=== PATIENT | female | born 1980 | race Caucasian/White ===

== ENCOUNTER 2022-11-29 15:21 | Outpatient (OUT) | payer OTHER, SELFPAY ==
[2022-11-29 15:47] LABS: Basophils Absolute Auto 0.1 10^3/uL (0.0-0.1); Basophils Percent Auto 0.7 % (0.2-2.0); Eosinophils Absolute Auto 0.2 10^3/uL (0.0-0.7); Eosinophils Percent Auto 2.8 % (0.9-7.0); Hematocrit 43.6 % (36.0-48.0); Hemoglobin 14.3 g/dL (12.0-16.0); Immature Granulocytes Abs Auto 0.04 10^3/uL (0.00-0.03); Immature Granulocytes Pct Auto 0.5 % (0.0-0.5); Lymphocytes Absolute Auto 1.7 10^3/uL (1.2-3.8); Lymphocytes Percent Auto 22.7 % (20.5-60.0); Mean Corpuscular HGB Conc 32.8 g/dL (29.9-35.2); Mean Corpuscular Hemoglobin 28.3 pg (26.7-34.0); Mean Corpuscular Volume 86.2 fL (81.0-99.0); Monocytes Absolute Auto 0.4 10^3/uL (0.3-0.8); Monocytes Percent Auto 5.7 % (1.7-12.0); Neutrophils Absolute Auto 5.1 10^3/uL (1.4-6.5); Neutrophils Percent Auto 67.6 % (43.0-75.0); Platelet Count 308 10^3/uL (150-450); Red Blood Count 5.06 10^6/uL (4.20-5.40); Red Cell Distribution Width 12.5 % (11.0-15.0); White Blood Count 7.6 10^3/uL (4.0-11.0)
[2022-11-29 16:36] LABS: Alanine Aminotransferase 13 U/L (14-59); Albumin Globulin Ratio 0.9; Albumin Level 3.4 g/dL (3.4-5.0); Alkaline Phosphatase 92 U/L (46-116); Anion Gap 12.5; Aspartate Amino Transferase 10 U/L (15-37); BUN Creatinine Ratio 11.2; Bilirubin Total 0.4 mg/dL (0.2-1.0); Calcium 9.2 mg/dL (8.5-10.1); Carbon Dioxide 25.6 mmol/L (21.0-32.0); Chloride 104 mmol/L (98-107); Chol HDL Ratio 5.2; Cholesterol 194 mg/dL (<=200); Estimated GFR (African America >60 (>=60); Estimated GFR (Non-African Ame >60 (>=60); Glucose 88 mg/dL (74-106); HDL Cholesterol 37 mg/dL (40-60); Potassium 4.1 mmol/L (3.5-5.1); Sodium 138 mmol/L (136-145); Thyroid Stimulating Hormone 2.999 uIU/mL (0.358-3.740); Total Protein 7.4 g/dL (6.4-8.2); Triglycerides 153 mg/dL (<=150); VLDL CHOLESTEROL 30.6 mg/dL
[2022-11-29 16:41] LABS: Free T4 1.13 ng/dL (0.76-1.46)
== END 2022-11-29 15:22 ==
LOC: LAB 15:24
PROVIDERS: PCP Nurse Practitioner; Visit Provider Nurse Practitioner
DX: E03.9 Hypothyroidism, unspecified (principal); F31.9 Bipolar disorder, unspecified
CPT/HCPCS: 36415; 80053; 80061; 84439; 84443; 85025

== ENCOUNTER 2023-01-01 12:44 | Outpatient (OUT) | payer OTHER, SELFPAY ==
--- NOTE | 2023-01-01 12:57 | MM_ITS ---
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 MG MAMM SCREEN 3D OLI CAD, 12/18/2021. INDICATIONS: Screening Calculator Name NCI Breast Cancer Risk Assessment Tool 5 Year Breast Cancer Risk 0.90% Lifetime Breast Cancer Risk 10.70% Personal Breast Cancer No Personal Ovarian Cancer No Treatments None Family Cancers None LOCATION: [facility] BREAST COMPOSITION: Scattered areas fibroglandular density. FINDINGS: DIAGNOSTIC CATEGORY 1--NEGATIVE. RIGHT BREAST: No significant suspicious finding. No significant change has occurred. LEFT BREAST: No significant suspicious finding. No significant change has occurred. RECOMMENDATIONS: ROUTINE MAMMOGRAM AND CLINICAL EVALUATION IN 12 MONTHS. PLEASE NOTE: A NORMAL MAMMOGRAM DOES NOT EXCLUDE THE POSSIBILITY OF BREAST CANCER. A CLINICALLY SUSPICIOUS PALPABLE LUMP SHOULD BE BIOPSIED. Dictated by: Ramakrishna Pascal M.D. on 01/02/2023 at 12:11 Approved by: Ramakrishna Pascal M.D. on 01/02/2023 at 12:54
== END 2023-01-01 12:45 | disposition home or self-care (01) ==
LOC: MAMMO 12:44
PROVIDERS: PCP Nurse Practitioner; Visit Provider Nurse Practitioner
DX: Z12.31 Encounter for screening mammogram for malignant neoplasm of breast (principal)
CPT/HCPCS: 77063; 77067

== ENCOUNTER 2024-01-03 10:00 | Outpatient (OUT) | payer OTHER, SELFPAY ==
--- NOTE | 2024-01-03 10:05 | MM_ITS ---
Patient Name: PATITO CABRALES MR#: [id number] : 1980 Exam Date: 01/03/2024 Ordering Doctor: KENYETTA Renee CNP RADIOLOGY REPORT PROCEDURE: MM TOMOSYNTHESIS SCREENING BI COMPARISON: MG MAMM RT DIAG FU, 12/27/2021. MM TOMOSYNTHESIS SCREENING BI, 01/01/2023. INDICATIONS: Screening Calculator Name NCI Breast Cancer Risk Assessment Tool 5 Year Breast Cancer Risk 0.90% Lifetime Breast Cancer Risk 10.60% Personal Breast Cancer No Personal Ovarian Cancer No Treatments None Family Cancers None LOCATION: [facility] BREAST COMPOSITION: There are scattered areas of fibroglandular density. FINDINGS: DIAGNOSTIC CATEGORY 1--NEGATIVE. NO CHANGE FROM COMPARISON ASSESSMENT. Scattered benign-appearing lymph nodes are present. RIGHT BREAST: No significant suspicious finding. LEFT BREAST: No significant suspicious finding. RECOMMENDATIONS: ROUTINE MAMMOGRAM AND CLINICAL EVALUATION IN 12 MONTHS. PLEASE NOTE: A NORMAL MAMMOGRAM DOES NOT EXCLUDE THE POSSIBILITY OF BREAST CANCER. A CLINICALLY SUSPICIOUS PALPABLE LUMP SHOULD BE BIOPSIED. Dictated by: Vini Soto MD on 01/03/2024 at 12:56 Approved by: Vini Soto MD on 01/03/2024 at 12:57
== END 2024-01-03 10:01 | disposition home or self-care (01) ==
LOC: MAMMO 10:00
PROVIDERS: PCP Nurse Practitioner; Visit Provider Nurse Practitioner
DX: Z12.31 Encounter for screening mammogram for malignant neoplasm of breast (principal)
CPT/HCPCS: 77063; 77067

== ENCOUNTER 2024-01-29 13:23 | Outpatient (OUT) | payer OTHER, SELFPAY ==
[2024-01-29 13:47] LABS: Basophils Absolute Auto 0.1 10^3/uL (0.0-0.1); Basophils Percent Auto 0.7 % (0.2-2.0); Eosinophils Absolute Auto 0.3 10^3/uL (0.0-0.7); Eosinophils Percent Auto 3.4 % (0.9-7.0); Hematocrit 41.2 % (36.0-48.0); Hemoglobin 13.6 g/dL (12.0-16.0); Immature Granulocytes Abs Auto 0.02 10^3/uL (0.00-0.03); Immature Granulocytes Pct Auto 0.2 % (0.0-0.5); Lymphocytes Absolute Auto 2.2 10^3/uL (1.2-3.8); Lymphocytes Percent Auto 25.6 % (20.5-60.0); Mean Corpuscular Hemoglobin 28.5 pg (26.7-34.0); Mean Corpuscular Volume 86.4 fL (81.0-99.0); Mean Platelet Volume 9.4 fL (9.5-13.5); Monocytes Absolute Auto 0.5 10^3/uL (0.3-0.8); Monocytes Percent Auto 6.3 % (1.7-12.0); Neutrophils Absolute Auto 5.4 10^3/uL (1.4-6.5); Neutrophils Percent Auto 63.8 % (43.0-75.0); Platelet Count 241 10^3/uL (150-450); Red Blood Count 4.77 10^6/uL (4.20-5.40); Red Cell Distribution Width 12.2 % (11.0-15.0); White Blood Count 8.5 10^3/uL (4.0-11.0)
[2024-01-29 14:03] LABS: Alanine Aminotransferase 16 U/L (14-59); Albumin Globulin Ratio 0.9; Albumin Level 3.2 g/dL (3.4-5.0); Alkaline Phosphatase 85 U/L (46-116); Anion Gap 14.7; Aspartate Amino Transferase 14 U/L (15-37); BUN Creatinine Ratio 12.4; Bilirubin Total 0.5 mg/dL (0.2-1.0); Calcium 8.8 mg/dL (8.5-10.1); Carbon Dioxide 22.6 mmol/L (21.0-32.0); Chloride 106 mmol/L (98-107); Chol HDL Ratio 4.7; Cholesterol 174 mg/dL (<=200); Estimated GFR (African America >60 (>=60); Estimated GFR (Non-African Ame >60 (>=60); Globulin 3.5 g/dL; Glucose 99 mg/dL (74-106); HDL Cholesterol 37 mg/dL (40-60); Potassium 4.3 mmol/L (3.5-5.1); Sodium 139 mmol/L (136-145); Thyroid Stimulating Hormone 1.641 uIU/mL (0.358-3.740); Total Protein 6.7 g/dL (6.4-8.2); Triglycerides 89 mg/dL (<=150); VLDL CHOLESTEROL 17.8 mg/dL
[2024-01-29 14:26] LABS: Free T4 1.16 ng/dL (0.76-1.46)
[2024-01-29 17:05] LABS: Bilirubin Urine NEGATIVE (NEGATIVE); Blood Urine TRACE-I (NEGATIVE); Clarity Urine CLEAR (CLEAR); Color Urine YELLOW (YELLOW); Glucose Urine UA NEGATIVE (NEGATIVE); Ketones Urine NEGATIVE (NEGATIVE); Leukocyte Esterase Urine NEGATIVE (NEGATIVE); Nitrite Urine NEGATIVE (NEGATIVE); Protein Urine TRACE mg/dL (NEG/TRACE); Specific Gravity Urine >=1.030 (1.005-1.025); Urobilinogen Urine 0.2 EU/dL (0.2-1.0); pH Urine 5.5 (5.0-9.0)
[2024-01-29 17:06] LABS: Urine Microscopic Indicated YES
[2024-01-29 17:20] LABS: Bacteria Urine SMALL #/HPF (NONE SEEN); Cast Seen? NONE SEEN #/LPF (NONE SEEN); Crystals Seen? None Seen #/HPF (None Seen); Mucus Urine SMALL (NONE SEEN); Squamous Epithelial Cell Urine MODERATE #/LPF (NONE/RARE); WBC Urine 0-2 #/HPF (NONE SEEN)
== END 2024-01-29 13:24 | disposition home or self-care (01) ==
LOC: LAB 13:25
PROVIDERS: PCP Nurse Practitioner; Visit Provider Nurse Practitioner
DX: E03.9 Hypothyroidism, unspecified (principal); E66.01 Morbid (severe) obesity due to excess calories; F31.9 Bipolar disorder, unspecified
CPT/HCPCS: 36415; 80053; 80061; 81001; 84439; 84443; 85025

== ENCOUNTER 2024-03-29 15:10 | Emergency (ER) | payer OTHER, SELFPAY ==
--- OUTSIDE RECORDS SUMMARY | 2024-03-29 15:18 | XMS_ITS | CCD ---
Author Organization [facility] Care Team Providers Care Gravel Screener Name Role Phone Unavailable Primary Care Provider UnavailISIS Hagan Referring Unavailable AICHHOLZ, CARMELA J. Referring Unavailable AICHHOLZ, CARMELA J. Primary Care Unavailable Aichholz, Carmela J. Primary Care Provider Lesly Snider Unavailable AICHHOLZ, LEASE PURCHASE DRIVER CARMELA Admitting Unavailable AICHHOLZ, LEASE PURCHASE DRIVER CARMELA Attending Unavailable AICHHOLZ, LEASE PURCHASE DRIVER CARMELA Primary Care Unavailable AICHHOLZ, LEASE PURCHASE DRIVER CARMELA Consulting Unavailable AICHHOLZ, LEASE PURCHASE DRIVER CARMELA Admitting Unavailable AICHHOLZ, LEASE PURCHASE DRIVER CARMELA Attending Unavailable AICHHOLZ, LEASE PURCHASE DRIVER CARMELA Primary Care Unavailable AICHHOLZ, LEASE PURCHASE DRIVER CARMELA Consulting Unavailable AICHHOLZ, LEASE PURCHASE DRIVER CARMELA Admitting Unavailable AICHHOLZ, LEASE PURCHASE DRIVER CARMELA Attending Unavailable AICHHOLZ, LEASE PURCHASE DRIVER CARMELA Primary Care Unavailable WAYNE, DR WILLY Gonsales Consulting Unavailable AICHHOLZ, LEASE PURCHASE DRIVER CARMELA Consulting Unavailable AICHHOLZ, LEASE PURCHASE DRIVER CARMELA Admitting Unavailable AICHHOLZ, LEASE PURCHASE DRIVER CARMELA Attending Unavailable AICHHOLZ, LEASE PURCHASE DRIVER CARMELA Primary Care Unavailable AICHHOLZ, LEASE PURCHASE DRIVER CARMELA Consulting Unavailable AICHHOLZ, LEASE PURCHASE DRIVER CARMELA Admitting Unavailable AICHHOLZ, LEASE PURCHASE DRIVER CARMELA Attending Unavailable AICHHOLZ, LEASE PURCHASE DRIVER CARMELA Primary Care Unavailable AICHHOLZ, LEASE PURCHASE DRIVER CARMELA Consulting Unavailable JADEN, DR RAMAKRISHNA [place] Consulting Unavailable KARASIK ., DR JOHNSON Admitting Unavailabl e KARASIK ., DR JOHNSON Attending Unavailabl e AICHHOLZ, LEASE PURCHASE DRIVER CARMELA Primary Care Unavailable KARASIK ., DR JOHNSON Consulting Unavailabl e REQUEST, DR HINDS LISTED Admitting Unavaila ble REQUEST, DR HINDS LISTED Attending Unavaila ble AICHHOLZ, LEASE PURCHASE DRIVER CARMELA Primary Care Unavailable REQUEST, NONE LISTED Consulting Unavaila ble KARASIK ., DR JOHNSON Admitting Jonn GASCA ., DR JOHNSON Attending Jonn e VÍCTOR, LEASE PURCHASE DRIVER CARMELA Primary Care Unavailable CAMPOS ., DR JOHNSON Consulting ALEJANDRO Linares Consulting Unavailable Chadwick Sauceda MD Primary Care Provider Víctor FIELD REP, Carmela Unavailable VÍCTOR, CARMELA Attending Unavailable VÍCTOR, CARMELA Attending Unavailable VÍCTOR, CARMELA Attending Unavailable VÍCTOR, CARMELA Attending Unavailable Allergies Allergy Classification Reported Allergen(s) Allergy Type Date of Onset Reaction(s) Facility (1 source) Latex Propensity to adverse reactions severe rash Bin1 ATE Other (2 sources) Sertraline Drug Allergy 05-03-20 23 Hallucinations Bin1 ATE Other (1 source) Acetaminophen / HYDROcodone Drug Allergy 12-28-19 13 [facility] (1 source) Latex Drug allergy (disorder) 12-28-19 13 [facility] (1 source) Sertraline Drug Allergy 12-28-19 13 [facility] (1 source) Acetaminophen / HYDROcodone Drug Allergy 05-03-20 Hallucinations [facility] (1 source) Latex Propensity to adverse reactions 05-03-20 Rash [facility] Medications Current Medications Medication Drug Class(es) Dates Sig (Normalized) Sig (Original) ARIPiprazole 20 mg oral tablet (2 sources) Atypical Antipsychotic take 1 tablet by mouth in the morning ARIPiprazole (Abilify) 20 MG tablet Take 20 mg by mouth in the morning. 0 Active Abilify Active cetirizine hydrochloride 10 mg oral tablet (1 source) Histamine-1 Receptor Antagonist take 5 mg by mouth in the morning cetirizine (ZyrTEC) 10 MG tablet Take 5 mg by mouth in the morning. 0 Active fluconazole 150 mg oral tablet (1 source) Azole Antifungal Start: 3 fluconazole (Diflucan) 150 MG tablet Indications: Vaginal yeast infection Take 150mg dose, may repeat in 3 days 2 tablet 1 06/13/2023 Active fluvoxaMINE maleate 100 mg oral tablet (2 sources) Serotonin Reuptake Inhibitor Start: 3 End: take 1.5 tablets by mouth in the morning fluvoxaMINE (Luvox) 100 MG tablet Indications: Obsessive-compulsiv e disorder, unspecified (CMS/HCC) , RINA (generalized anxiety disorder) (CMS/HCC) Take 1.5 tablets (150 mg) by mouth in the morning and 1.5 tablets (150 mg) before bedtime. 270 tablet 1 05/31/2023 08/29/2023 Active fluvoxaMINE Male ate Active hydrocortisone 10 mg/ml / neomycin 3.5 mg/ml / polymyxin b [id number] unt/ml otic suspension (1 source) Aminoglycoside Antibacterial, Polymyxin-class Antibacterial, Corticosteroid Start: 09-22-2021 Bltobkmb-Rnbgrhney-XX 3.5-16844-2 3 drops left ear Three times a day for 7 days Sep, Active levothyroxine sodium 0.137 mg oral tablet (3 sources) l-Thyroxine Start: 07-30-2023 End: 10-28-2023 take 1 tablet by mouth in the morning levothyroxine (Synthroid, Levoxyl) 137 MCG tablet Indications: Hypothyroidism, unspecified (CMS/HCC) Take 137 mcg by mouth in the morning. 90 tablet 1 07/30/2023 10/28/2023 Active take 1 capsule by mouth before m ealtime levothyroxine (Tirosint) 137 MCG capsule Take 137 mcg by mouth in the morning. Take before meals. 0 Active Levothyroxine So dium Active Melatonin (1 source) Melatonin Active temazepam 15 mg oral capsule (1 source) Benzodiazepine temazepam (Sung ril) 15 MG capsule Take 15 mg by mouth as needed at bedtime for sleep. 0 Active triamcinolone acetonide 1 mg /ml topical cream (1 source) Corticosteroid triamcinolone (K enalog) 0.1 % cream Apply 1 application topically in the morning and 1 application before bedtime. 0 Active Problems Active Problems Problem Classification Problem Date Documented Da te Episodic/Chronic Allergic reactions (1 source) Atopic dermatitis; Translations: [Intrinsic (allergic) eczema] Onset: 05-23-2023 05-23-2023 Chronic Anxiety disorders (2 sources) Generalized anxiety disorder; Translations: [Generalized anxiety disorder] Onset: 05-23-2023 05-23-2023 Chronic Mood disorders (1 source) Bipolar disorder, unspecified; Translations: [BIPOLAR DISORDER UNSPECIFIED] Onset: 03-08-2022 Chronic Thyroid disorders (8 sources) Hypothyroidism, unspecified; Translations: [Hypothyroidism] Onset: 03-08-2022 Chronic Unclassified (1 source) CONTACT W/AND (SUSP) EXPOS COVID-19; Translations: [CONTACT W/AND (SUSP) EXPOS COVID-19] Onset: 03-04-2022 Past or Other Problems Problem Classification Problem Date Documented Da te Episodic/Chronic Inflammatory diseases of female pelvic organs (5 sources) Abscess of vulva; Translations: [ABSCESS OF VULVA] Onset: 03-02-2022 Episodic Other ear and sense organ disorders (1 source) Unspecified acute noninfective otitis externa, left ear Onset: 09-22-2021 Resolved: 09-22-2021 Episodic Other screening for suspected conditions (not mental disorders or infectious disease) (12 sources) Other abnormal and inconclusive findings on diagnostic imaging of breast; Translations: [Encounter for screening mammogram for malignant neoplasm of breast] Onset: 12-14-2021 Episodic Residual codes; unclassified (1 source) Procedure and treatment not carried out for other reasons; Translations: [PROC AND TX NOT CARRIED OUT OTH REASONS] Onset: 03-08-2022 Episodic Results Test Name Value Interpretation Reference Range Facility FREE T4on 08-06-2022 Free T4 [Mass/Vol] 1.35 ng/dL Normal 0.76-1.46 [facility] Comment on above: Performed By: #### F T4 #### [facility] [address], [place] [address] Dr. Steve Oliveros TSHon 08-06-2022 TSH 0.319 uIU/mL Critically low 0.358-3.740 [facility] Comment on above: Performed By: #### T SH ####[facility] [id number] [place], [place] [address]ZoDr. Steev Oliveros FREE T4on 05-29-2022 Free T4 [Mass/Vol] 1.15 ng/dL Normal 0.76-1.46 [facility] Comment on above: Performed By: #### F T4 #### [facility] [address] [place], [place] [address] Dr. Steve Oliveros TSHon 05-29-2022 TSH 5.149 uIU/mL Critically high 0.358-3.740 [facility] Comment on above: Performed By: #### T SH #### [facility] [address] [place], [place] [address] Dr. Steve Oliveros URon 03-02-2022 , QUAL Negative Normal NEGATIVE [facility] Comment on above: Performed By: #### P REGU #### [facility] [address] [place], [place] [address] Dr. Steve Oliveros Covid-19 PCR (CVDTB)on SARS-CoV-2 (COVID-19) RNA ZI+probe Ql (Unsp spec) Not detected Normal NOT DETECTED [facility] Comment on above: Result Comment: When diagnostic testing is negative, the possibility of a false negative should be considered in the context of a patient's recent exposures and the presence of clinical signs and symptoms consistent with SARS-CoV-2. This test is not yet approved or cleared by the [place] FDA. When there are no FDA-approved or cleared tests available, and other criteria are met, FDA can make tests available under an emergency access mechanism called an Emergency Use Authorization (EUA). The EUA for this test is supported by the Registered Nurse Obstetrics of Health and Human Service's declaration that circumstances exist to justify the emergency use of in vitro diagnostics for the detection and/or diagnosis of the virus that causes COVID-19. This EUA will remain in effect for the duration of the COVID-19 declaration justifying emergency of IVDs, unless it is terminated or revoked by the FDA (after which the test may no longer be used). Performed By: #### C VDTBH ####[facility] [id number] [place], [place] [address]FeDr. Steve Oliveros MG MAMM RT DIAG FUon 022 MG MAMM RT DIAG FU Patient: HENRIETTA GARCIA Exam Date: 12/27/2021 : 1980 Gender:F Ordering : KENYETTA RENEE LEASE PURCHASE DRIVER Admission #: [id number] Family : Order #: [id number] CLICK HERE TO VIEW EXAM RADIOLOGY REPORT PROCEDURE: MAMMOGRAM RIGHT DIAGNOSTIC DIGITAL FOLLOW UP COMPARISON: MAMM SCREEN 3D OLI CAD, 12/18/2021. INDICATIONS: Abnormal findings on diagnostic imaging of breast Calculator Name NCI Breast Cancer Risk Assessment Tool 5 Year Breast Cancer Risk 0.80% Lifetime Breast Cancer Risk 10.80% Personal Breast Cancer No Personal Ovarian Cancer No Treatments None Family Cancers None LOCATION: [facility] BREAST COMPOSITION: Scattered areas fibroglandular density. FINDINGS: DIAGNOSTIC CATEGORY 2--BENIGN FINDING: RIGHT BREAST: Spot magnification views demonstrate dispersion of previously seen asymmetry within the posterior upper-outer quadrant. No suspicious underlying findings. Annual screening mammography is recommended. RECOMMENDATIONS: ROUTINE MAMMOGRAM AND CLINICAL EVALUATION IN 12 MONTHS. PLEASE NOTE: A NORMAL MAMMOGRAM DOES NOT EXCLUDE THE POSSIBILITY OF BREAST CANCER. A CLINICALLY SUSPICIOUS PALPABLE LUMP SHOULD BE BIOPSIED. Dictated by: Ramakrishna Pascal M.D. on 12/27/2021 at 10:27 Approved by: Ramakrishna Pascal M.D. on 12/27/2021 at 10:30 Normal [facility] MAMM SCREEN 3D OLI CADon 12-18-2021 MAMM SCREEN 3D OLI CAD Patient: HENRIETTA GARCIA Exam Date: 12/18/2021 : 1980 Gender:F Ordering : KENYETTA RENEE [facility] Admission #: [id number] Family : Order #: [id number] CLICK HERE TO VIEW EXAM RADIOLOGY REPORT PROCEDURE: MAMMOGRAM SCREENING 3D BILATERAL CAD COMPARISON: None. INDICATIONS: Screening Calculator Name NCI Breast Cancer Risk Assessment Tool 5 Year Breast Cancer Risk 0.80% Lifetime Breast Cancer Risk 10.80% Personal Breast Cancer No Personal Ovarian Cancer No Treatments None Family Cancers None LOCATION: [facility] BREAST COMPOSITION: Scattered areas fibroglandular density. FINDINGS: DIAGNOSTIC CATEGORY 0--INCOMPLETE: NEED ADDITIONAL IMAGING EVALUATION. Scattered benign-appearing lymph nodes are present. RIGHT BREAST: A subtle area of architectural distortion is identified in the upper-outer quadrant of the right breast at the chest wall. Spot imaging and ultrasound follow-up recommended. LEFT BREAST: No significant suspicious finding. Well-circumscribed reniform nodule 3 o'clock position of the left mid breast, a normal intramammary lymph node is favored RECOMMENDATIONS: ADDITIONAL MAMMOGRAPHIC VIEWS REQUIRED: RIGHT BREAST - spot compression ULTRASOUND: RIGHT BREAST PLEASE NOTE: A NORMAL MAMMOGRAM DOES NOT EXCLUDE THE POSSIBILITY OF BREAST CANCER. A CLINICALLY SUSPICIOUS PALPABLE LUMP SHOULD BE BIOPSIED. Dictated by: Willy Soto MD on 12/18/2021 at 12:47 Approved by: Willy Soto MD on 12/18/2021 at 12:55 Normal [facility] PAP ACOG PANEL 2: 30 to 65on 12-17-2021 . . Normal [facility] Comment on above: Result Comment: Perf ormed at: WB Performed By: #### [id number] #### [facility] [address] [place] [address] [address] Steve Oliveros Age Gdln ACOG Testing 30-65 Normal [facility] Comment on above: Performed By: #### [id number] #### [facility] [address] [place] [address] Dr. Steve Oliveros DIAGNOSIS: Comment Normal [facility] Comment on above: Result Comment: NEGA TIVE FOR INTRAEPITHELIAL LESION OR MALIGNANCY. Performed at: WB Performed By: #### [id number] #### [facility] [address] [place] [address] [address] Steve Oliveros HPV Aptima Negative Normal Negative [facility] Comment on above: Result Comment: This nucleic acid amplification test detects fourteen high-risk HPV types (16,18,31,33,35,39,45,51,52,56,58,59,66,68) without differentiation. Performed at: =G Performed By: #### [id number] #### [facility] [address] [place] [address] Dr. Steve Oliveros Methodology: Comment Normal [facility] Comment on above: Result Comment: This liquid based ThinPrep(R) pap test was screened with the use of an image guided system. Performed at: WB Performed By: #### [id number] #### [facility] [address] [place] [address] Dr. Steve Oliveros Note: Comment Normal [facility] Comment on above: Result Comment: The Pap smear is a screening test designed to aid in the detection of premalignant and malignant conditions of the uterine cervix. It is not a diagnostic procedure and should not be used as the sole means of detecting cervical cancer. Both false-positive and false-negative reports do occur. . Performed at: WB Performed By: #### [id number] #### [facility] [address] [place] [address] Dr. Steve Oliveros Performed by: Comment Normal [facility] Comment on above: Result Comment: Slime Lockwood, Intelligence Intern (ASCP) Performed at: WB Performed By: #### [id number] #### [facility] [address] [place] [address] Dr. Steve Oliveros Specimen adequacy: Comment Normal [facility] Comment on above: Result Comment: Sati sfactory for evaluation. Endocervical and/or squamous metaplastic cells (endocervical component) are present. Performed at: WB Performed By: #### [id number] #### [facility] [address] [place] [address] Dr. Steve Oliveros CBC AUTO DIFFon 11-28-2021 BASO # 0.0 103/ul Normal 0.0-0.1 [facility] Comment on above: Performed By: #### D ATCBC #### [facility] [address] [place] [address] Dr. Steve Oliveros Basophils/100 WBC (Bld) 0.6 % Normal 0.2-2.0 [facility] Comment on above: Performed By: #### D ATCBC #### [facility] [address] [place] [address] Dr. Steve Oliveros EO # 0.1 103/ul Normal 0.0-0.7 [facility] Comment on above: Performed By: #### D ATCBC #### [facility] [address] [place] [address] Dr. Steve Oliveros Eosinophils/100 WBC (Bld) 1.5 % Normal 0.9-7.0 [facility] Comment on above: Performed By: #### D ATCBC #### [facility] [address] [place] [address] Dr. Steve Oliveros Erythrocyte distribution width (RBC) [Ratio] 12.3 % Normal 11.0-15.0 [facility] Comment on above: Performed By: #### D ATCBC #### [facility] [address] [address] [address] Steve Oliveros Hematocrit (Bld) [Volume fraction] 42.5 % Normal 36.0-48.0 [facility] Comment on above: Performed By: #### D ATCBC #### [facility] [address] [place] [address] Dr. Steve Oliveros Hemoglobin (Bld) [Mass/Vol] 13.7 g/dL Normal 12.0-16.0 [facility] Comment on above: Performed By: #### D ATCBC #### [facility] [address] [place] [address] Dr. Steve Oliveros IG # 0.02 10e3/ul Normal 0.00-0.03 [facility] Comment on above: Performed By: #### D ATCBC #### [facility] [address] [place] [address] Dr. Steve Oliveros IG % 0.3 % Normal 0.0-0.5 [facility] Comment on above: Performed By: #### D ATCBC #### [facility] [address] [place] [address] Dr. Steve Oliveros LYMPH # 1.8 103/ul Normal 1.2-3.8 [facility] Comment on above: Performed By: #### D ATCBC #### [facility] [address] [place] [address] Dr. Steve Oliveros Lymphocytes/100 WBC (Bld) 24.4 % Normal 20.5-60.0 [facility] Comment on above: Performed By: #### D ATCBC #### [facility] [address] [place] [address] Dr. Steve Oliveros MCH (RBC) [Entitic mass] 28.1 pg Normal 26.7-34.0 [facility] Comment on above: Performed By: #### D ATCBC #### [facility] [address] [place] [address] Dr. Steve Oliveros MCHC (RBC) [Mass/Vol] 32.2 g/dL Normal 29.9-35.2 [facility] Comment on above: Performed By: #### D ATCBC #### [facility] [address] [address] [address] Steve Oliveros MCV (RBC) [Entitic vol] 87.3 fL Normal 81.0-99.0 [facility] Comment on above: Performed By: #### D ATCBC #### [facility] [address] [place] [address] [address] Steve Oliveros MONO # 0.5 103/ul Normal 0.3-0.8 [facility] Comment on above: Performed By: #### D ATCBC #### [facility] [address] [place] [address] Dr. Steve Oliveros Monocytes/100 WBC (Bld) 6.6 % Normal 1.7-12.0 [facility] Comment on above: Performed By: #### D ATCBC #### [facility] [address] [place] [address] Dr. Steve Oliveros NEUT # 4.8 103/ul Normal 1.4-6.5 [facility] Comment on above: Performed By: #### D ATCBC #### [facility] [address] [place] [address] Dr. Steve Oliveros Neutrophils/100 WBC (Bld) 66.6 % Normal 43.0-75.0 [facility] Comment on above: Performed By: #### D ATCBC #### [facility] [address] [place] [address] Dr. Steve Oliveros Platelet mean volume (Bld) [Entitic vol] 9.1 fL Critically low 9.5-13.5 [facility] Comment on above: Performed By: #### D ATCBC #### [facility] [address] [place] [address] Dr. Steve Oliveros PLT 301 103/ul Normal 150-450 [facility] Comment on above: Performed By: #### D ATCBC #### [facility] [address] [place] [address] Dr. Steve Oliveros RBC 4.87 106/ul Normal 4.20-5.40 [facility] Comment on above: Performed By: #### D ATCBC #### [facility] [address] [address] [address] Steve Oliveros WBC 7.2 103/ul Normal 4.0-11.0 [facility] Comment on above: Performed By: #### D ATCBC #### [facility] [address] [place] [address] Dr. Steve Oliveros ALTAGRACIA - TSHon 11-28-2021 TSH 7.045 uIU/mL Critically high 0.358-3.740 [facility] Comment on above: Performed By: #### D ATTSH DATBMP #### [facility] [address] [place] [address] Dr. Steve Oliveros TSH RANGE SEE BELOW Normal [facility] Comment on above: Result Comment: <0.3 4 UIU/ml HYPERTHYROID 0.34-5.60 UIU/ml EUTHYROID >5.60 UIU/ml HYPOTHYROID Performed By: #### D ATTJOSE DATBMP #### [facility] [address] [place] [address] Dr. Steve Oliveros ALTAGRACIA- BMP WITH LIPIDon 2021 Anion gap [Moles/Vol] 12.1 mmol/L Normal [facility] Comment on above: Performed By: #### D ATTSH, DATBMP #### [facility] [address] [place] [address] Dr. Steve Oliveros Calcium [Mass/Vol] 9.0 mg/dL Normal 8.5-10.1 [facility] Comment on above: Performed By: #### D ATTSH, DATBMP #### [facility] [address] [place] [address] Dr. Steve Oliveros Chloride [Moles/Vol] 105 mmol/L Normal 98-107 [facility] Comment on above: Performed By: #### D ATTSH, DATBMP #### [facility] [address] [place] [address] Dr. Steve Oliveros Cholesterol [Mass/Vol] 191 mg/dL Normal <=200 [facility] Comment on above: Performed By: #### D ATTSH, DATBMP #### [facility] [address] [address] [address] Steve Oliveros Cholesterol in HDL [Mass/Vol] 33 mg/dL Critically low 40-60 [facility] Comment on above: Performed By: #### D ATTSH, DATBMP #### [facility] [address] [address] [address] Steve Oliveros Cholesterol in LDL [Mass/Vol] 117.0 mg/dL Normal [facility] Comment on above: Performed By: #### D ATTSH, DATBMP #### [facility] [address] [address] [address] Steve Oliveros CO2 [Moles/Vol] 25.1 mmol/L Normal 21.0-32.0 [facility] Comment on above: Performed By: #### D ATTSH, DATBMP #### [facility] [address] [address] [address] Steve Oliveros Creatinine [Mass/Vol] 0.93 mg/dL Normal 0.55-1.02 [facility] Comment on above: Performed By: #### D ATTSH, DATBMP #### [facility] [address] [address] [address] Steve Oliveros EGFR-AF PUERTO RICAN >60 Normal >=60 [facility] Comment on above: Performed By: #### D ATTSH, DATBMP #### [facility] [address] [address] [address] Steve Oliveros EGFR-NON AF PUERTO RICAN >60 Normal >=60 [facility] Comment on above: Performed By: #### D ATTSH, DATBMP #### [facility] [address] [address] [address] Steve Oliveros Glucose [Mass/Vol] 91 mg/dL Normal 74-106 [facility] Comment on above: Performed By: #### D ATTSH, DATBMP #### [facility] [address] [address] [address] Steve Oliveros HDL NORMAL > or = 60 mg/dl - LO W CARDIOVASCULAR RISK <40 mg/dl - HIGH CARDIOVASCULAR RISK Normal [facility] Comment on above: Performed By: #### D ATTSH, DATBMP #### [facility] [address] [address] [address] Steve Oliveros LDL CALC NORMAL SEE BELOW Normal [facility] Comment on above: Result Comment: <100 mg/dl OPTIMAL 100 - 129 mg/dl NEAR OR ABOVE OPTIMAL 130 - 159 mg/dl BORDERLINE HIGH 160 - 189 mg/dl HIGH >190 mg/dl VERY HIGH Performed By: #### D ATTSH, DATBMP #### [facility] [address] [address] [address] Steve Oliveros Potassium [Moles/Vol] 4.2 mmol/L Normal 3.5-5.1 [facility] Comment on above: Performed By: #### D ATTSH, DATBMP #### [facility] [address] [address] [address] Steve Oliveros Sodium [Moles/Vol] 138 mmol/L Normal 136-145 [facility] Comment on above: Performed By: #### D ATTSH, DATBMP #### [facility] [address] [address] [address] Steve Oliveros Triglyceride [Mass/Vol] 205 mg/dL Critically high <=150 [facility] Comment on above: Performed By: #### D ATTSH, DATBMP #### [facility] [address] [address] [address] Steve Oliveros Urea nitrogen [Mass/Vol] 10.0 mg/dL Normal 7.0-18.0 [facility] Comment on above: Performed By: #### D ATTSH, DATBMP #### [facility] [address] [address] [address] Steve Oliveros Urea nitrogen/Creatinine [Mass ratio] 10.8 mg/mg Normal [facility] Comment on above: Performed By: #### D ATTSH, DATBMP #### [facility] [address] [address] [address] Steve Oliveros VLDL CALC 41.0 mg/dL Normal [facility] Comment on above: Performed By: #### D ATTSH, DATBMP #### [facility] [address] [address] [address] Steve Oliveros CBC Auto Differentialon 07-25 Basophils (Bld) [#/Vol] 0.07 10*3/uL [employer] Phone: Basophils/100 WBC (Bld) 1 % 0 - 2 % [employer] Phone: Differential Type NOT REPORTED [employer] Phone: Eosinophils (Bld) [#/Vol] 0.22 10*3/uL [employer] Phone: Eosinophils/100 WBC (Bld) 2 % 1 - 4 % [employer] Phone: Erythrocyte distribution width (RBC) [Ratio] 13.0 % 11.8 - 14.4 % [employer] Phone: Hematocrit (Bld) [Volume fraction] 43.3 % 36.3 - 47.1 % [employer] Phone: Hemoglobin (Bld) [Mass/Vol] 13.6 g/dL 11.9 - 15.1 g/dL [employer] Phone: Immature granulocytes (Bld) [#/Vol] 0.05 10*3/uL [employer] Phone: Immature granulocytes (Bld) [#/Vol] 0 % 0 [employer] Phone: Interpretation and review of laboratory results Abnormal [employer] Phone: Lymphocytes (Bld) [#/Vol] 2.56 10*3/uL [employer] Phone: Lymphocytes/100 WBC (Bld) 23 % Low 24 - 43 % [employer] Phone: MCH (RBC) [Entitic mass] 27.0 pg 25.2 - 33.5 pg [employer] Phone: MCHC (RBC) [Mass/Vol] 31.4 g/dL 28.4 - 34.8 g/dL [employer] Phone: MCV (RBC) [Entitic vol] 86.1 fL 82.6 - 102.9 fL [employer] Phone: Monocytes (Bld) [#/Vol] 1.01 10*3/uL [employer] Phone: Monocytes/100 WBC (Bld) 9 % 3 - 12 % [employer] Work Phone: Platelet mean volume (Bld) [Entitic vol] 9.5 fL 8.1 - 13.5 fL [employer] Phone: Platelets (Bld) [#/Vol] NOT REPORTED [employer] Phone: Platelets (Bld) [#/Vol] 300 10*3/uL [employer] Phone: RBC (Bld) [#/Vol] 5.03 10*6/uL 3.95 - 5.1 1 m/uL [employer] Work Phone: RBC morphology finding Nom (Bld) NOT REPORTED [employer] Work Phone: Segmented neutrophils/100 WBC (Bld) 65 % 36 - 65 % [employer] Phone: Segs Absolute 7.39 [employer] Work Phone: WBC (Bld) [#/Vol] 11.3 10*3/uL [employer] Work Phone: WBC (Bld) [#/Vol] 0.0 10*3/uL 0.0 per 10 0 WBC [employer] Work Phone: WBC Morphology NOT REPORTED [facility] Work Phone: CBC with Diffon 08-12-2020 Abs. Basophil 0.07 k/uL Normal 0.00-0.20 [facility] Comment on above: Performed By: #### C DP, CP, TSH #### [facility] [address] [place], [place] [id number] Mental Health Coordinator: Willy Jasmine MD #### FT4, LIPR #### [address] [id number] Mental Health Coordinator: Tr Bullard MD Abs.Imm.Granulocyte 0.05 k/uL Normal 0.00-0.[address] [facility] Comment on above: Performed By: #### C DP, CP, TSH #### [facility] [address] [place] [address] [place] [place] [id number] Mental Health Coordinator: Willy Jasmine MD #### FT4, LIPR #### [address] [address] Mental Health Coordinator: Tr Bullard MD Abs.Neutrophil (Seg) 7.39 k/uL Normal 1.50-8.10 [facility] Comment on above: Performed By: #### C DP, CP, TSH #### [facility] [address] [place] [address] [address] [phone] Mental Health Coordinator: Willy Jasmine MD #### FT4, LIPR #### [place] [address] Mental Health Coordinator: Tr Bullard MD Basophils/100 WBC (Bld) 1 % Normal 0-[address] [facility] Comment on above: Performed By: #### C DP, CP, TSH #### [facility] [address] [place] [address] [address] [phone] Mental Health Coordinator: Willy Jasmine MD #### FT4, LIPR #### [place] [address] Mental Health Coordinator: Tr Bullard MD Eosinophils (Bld) [#/Vol] 0.22 10*3/uL Normal 0.00-0.[address] [facility] Comment on above: Performed By: #### C DP, CP, TSH #### [facility] [address], [place] [id number] Mental Health Coordinator: Willy Jasmine MD #### FT4, LIPR #### [address] [place], [place] [id number] Mental Health Coordinator: Tr Bullard MD Eosinophils/100 WBC (Bld) 2 % Normal 1-[address] [facility] Comment on above: Performed By: #### C DP, CP, TSH #### [facility] [address] [place], [place] [phone] Mental Health Coordinator: Willy Jasmine MD #### FT4, LIPR #### [address] [place], [place] [id number] Mental Health Coordinator: Tr Bullard MD Erythrocyte distribution width (RBC) [Ratio] 13.0 % Normal 11.8-14.[address] [facility] Comment on above: Performed By: #### C DP, CP, TSH #### [facility] [address], [place] [id number] Mental Health Coordinator: Willy Jasmine MD #### FT4, LIPR #### [address] [id number] Mental Health Coordinator: Tr Bullard MD Hematocrit (Bld) [Volume fraction] 43.3 % Normal 36.3-47.[address] [facility] Comment on above: Performed By: #### C DP, CP, TSH #### [facility] [address] [place], [place] 1590683 Mental Health Coordinator: Willy Jasmine MD #### FT4, LIPR #### [address] [id number] Mental Health Coordinator: Tr Bullard MD Hemoglobin (Bld) [Mass/Vol] 13.6 g/dL Normal 11.9-15.[address] [facility] Comment on above: Performed By: #### C DP, CP, TSH #### [facility] [address] [place], [place] [phone] Mental Health Coordinator: Willy Jasmine MD #### FT4, LIPR #### [address] [id number] Mental Health Coordinator: Tr Bullard MD Immature granulocytes (Bld) [#/Vol] 0 % Normal [address] [facility] Comment on above: Performed By: #### C DP, CP, TSH #### [facility] [address] [place], [place] [id number] Mental Health Coordinator: Willy Jasmine MD #### FT4, LIPR #### [address] [phone] Mental Health Coordinator: Tr Bullard MD Lymphocytes (Bld) [#/Vol] 2.56 10*3/uL Normal 1.10-3.[address] [facility] Comment on above: Performed By: #### C DP, CP, TSH #### [facility] [address] [place], [place] 9305083 Mental Health Coordinator: Willy Jasmine MD #### FT4, LIPR #### [address] [id number] Mental Health Coordinator: Tr Bullard MD Lymphocytes/100 WBC (Bld) 23 % Low 24-[address] [facility] Comment on above: Performed By: #### C DP, CP, TSH #### [facility] [address] [place], [place] 7395583 Mental Health Coordinator: Willy Jasmine MD #### FT4, LIPR #### [address] [id number] Mental Health Coordinator: Tr Bullard MD MCH (RBC) [Entitic mass] 27.0 pg Normal 25.2-33.[address] [facility] Comment on above: Performed By: #### C DP, CP, TSH #### [address] [place] [address] Mental Health Coordinator: Willy Jasmine MD #### FT4, LIPR #### [address] [id number] Mental Health Coordinator: Tr Bullard MD MCHC (RBC) [Mass/Vol] 31.4 g/dL Normal 28.4-34.[address] [facility] Comment on above: Performed By: #### C DP, CP, TSH #### [address] [place] [phone] Mental Health Coordinator: Willy Jasmine MD #### FT4, LIPR #### [address] [phone] Mental Health Coordinator: Tr Bullard MD MCV (RBC) [Entitic vol] 86.1 fL Normal 82.6-102.[address] [facility] Comment on above: Performed By: #### C DP, CP, TSH #### [address] [place] [phone] Mental Health Coordinator: Willy Jasmine MD #### FT4, LIPR #### [address] [id number] Mental Health Coordinator: Tr Bullard MD Monocytes (Bld) [#/Vol] 1.01 10*3/uL Normal 0.10-1.[address] [facility] Comment on above: Performed By: #### C DP, CP, TSH #### [facility] [address] [place] [address] [place] [address] Mental Health Coordinator: Willy Jasmine MD #### FT4, LIPR #### [address] [id number] Mental Health Coordinator: Tr Bullard MD Monocytes/100 WBC (Bld) 9 % Normal 3-[address] [facility] Comment on above: Performed By: #### C DP, CP, TSH #### [facility] [address] [place], [place] 1936083 Mental Health Coordinator: Willy Jasmine MD #### FT4, LIPR #### [address] 1678208 Mental Health Coordinator: Tr Bullard MD Neutrophil (Seg) 65 % Normal 36-65 [facility] Comment on above: Performed By: #### C DP, CP, TSH #### [facility] [address] [place], [place] 0551583 Mental Health Coordinator: Willy Jasmine MD #### FT4, LIPR #### [address] [id number] Mental Health Coordinator: Tr Bullard MD NRBC Automated 0.0 per 100 WBC Normal 0.[address] [facility] Comment on above: Performed By: #### C DP, CP, TSH #### [facility] [address] [place], [place] 0663283 Mental Health Coordinator: Willy Jasmine MD #### FT4, LIPR #### [address] [address] Mental Health Coordinator: Tr Bullard MD Platelet mean volume (Bld) [Entitic vol] 9.5 fL Normal 8.1-13.[address] [facility] Comment on above: Performed By: #### C DP, CP, TSH #### [facility] [address] [place], [place] 7183483 Mental Health Coordinator: Willy Jasmine MD #### FT4, LIPR #### [address] [address] Mental Health Coordinator: Tr Bullard MD Platelets (Bld) [#/Vol] 300 10*3/uL Normal 138-[address] [facility] Comment on above: Performed By: #### C DP, CP, TSH #### [facility] [address] [place], [place] [phone] Mental Health Coordinator: Wilyl Jasmine MD #### FT4, LIPR #### [address] [address] Mental Health Coordinator: Tr Bullard MD RBC (Bld) [#/Vol] 5.03 10*6/uL Normal 3.95-5.[address] [facility] Comment on above: Performed By: #### C DP, CP, TSH #### [address] [place] [phone] Mental Health Coordinator: Willy Jasmine MD #### FT4, LIPR #### [address] [address] Mental Health Coordinator: Tr Bullard MD WBC (Bld) [#/Vol] 11.3 10*3/uL Normal 3.5-11.[address] [facility] Comment on above: Performed By: #### C DP, CP, TSH #### [address] [place], [place] [phone] Mental Health Coordinator: Willy Jasmine MD #### FT4, LIPR #### [address] [address] Mental Health Coordinator: Tr Bullard MD Auto Diff Performed NOT REPORTED Normal [facility] Comment on above: Performed By: #### C DP, CP, TSH #### [address] [place], [place] 9225983 Mental Health Coordinator: Willy Jasmine MD #### FT4, LIPR #### [address] [address] Mental Health Coordinator: Tr Bullard MD Platelets (Bld) [#/Vol] NOT REPORTED Normal [facility] Comment on above: Performed By: #### C DP, CP, TSH #### [address] [place], [place] 5816983 Mental Health Coordinator: Willy Jasmine MD #### FT4, LIPR #### [address] [place], [place] [id number] Mental Health Coordinator: Tr Bullard MD RBC morphology finding Nom (Bld) NOT REPORTED Normal [facility] Comment on above: Performed By: #### C DP, CP, TSH #### [address] [place], [place] 2367983 Mental Health Coordinator: Willy Jasmine MD #### FT4, LIPR #### [address] [place], [place] [phone] Mental Health Coordinator: Tr Bullard MD WBC Morphology NOT REPORTED Normal [facility] Comment on above: Performed By: #### C VILMA, CP, TSH #### [address] [place], [place] 9064383 Mental Health Coordinator: Willy Jasmine MD #### FT4, LIPR #### [address] [address] Mental Health Coordinator: Tr Bullard MD Comp Metabolic Profon 2020 (cont.) Normal [facility] Comment on above: Result Comment: Aver age GFR for 40-49 years old: 99 mL/min/1.73sq m Chronic Kidney Disease: <60 mL/min/1.73sq m Kidney failure: <15 mL/min/1.73sq m eGFR calculated using average adult body mass. Additional eGFR calculator available at: http://www.[employer].com.com/multiple_crcl_2012.htm Performed By: #### C DP, CP, TSH #### [address] [place], [place] 1780683 Mental Health Coordinator: Willy Jasmine MD #### FT4, LIPR #### [address] [place] [address] Mental Health Coordinator: Tr Bullard MD Albumin [Mass/Vol] 3.8 g/dL Normal 3.5-5.[address] [facility] Comment on above: Performed By: #### C DP, CP, TSH #### [facility] [address] [place] [address] [place], [place] 8671483 Mental Health Coordinator: Willy Jasmine MD #### FT4, LIPR #### [address] [id number] Mental Health Coordinator: Tr Bullard MD Albumin/Globulin [Mass ratio] 1.0 {ratio} Normal 1.0-2.[address] [facility] Comment on above: Performed By: #### C DP, CP, TSH #### [address] [place] [phone] Mental Health Coordinator: Willy Jasmine MD #### FT4, LIPR #### [address] [address] Mental Health Coordinator: Tr Bullard MD Alkaline Phos 128 U/L High 35-104 [facility] Comment on above: Performed By: #### C DP, CP, TSH #### [address] [place], [place] 9172083 Mental Health Coordinator: Willy Jasmine MD #### FT4, LIPR #### [address] [address] Mental Health Coordinator: Tr Bullard MD ALT [Catalytic activity/Vol] 19 U/L Normal 5-[address] [facility] Comment on above: Performed By: #### C DP, CP, TSH #### [facility] [address] [place] [address] [place], [place] 6877583 Mental Health Coordinator: Willy Jasmine MD #### FT4, LIPR #### [address] [id number] Mental Health Coordinator: Tr Bullard MD Anion gap [Moles/Vol] 9 mmol/L Normal 9-[address] [facility] Comment on above: Performed By: #### C DP, CP, TSH #### [facility] [address] [place], [place] 0207483 Mental Health Coordinator: Willy Jasmine MD #### FT4, LIPR #### [address] [address] Mental Health Coordinator: Tr Bullard MD AST [Catalytic activity/Vol] 16 U/L Normal <[address] [facility] Comment on above: Performed By: #### C DP, CP, TSH #### [facility] [address] [place], [place] 3214683 Mental Health Coordinator: Willy Jasmine MD #### FT4, LIPR #### [address] [address] Mental Health Coordinator: Tr Bullard MD Bilirubin Ql (U) 0.37 mg/dL Normal 0.3-1.2 [facility] Comment on above: Performed By: #### C DP, CP, TSH #### [facility] [address] [place] [address] [place], [place] 4787283 Mental Health Coordinator: Willy Jasmine MD #### FT4, LIPR #### [address] [address] Mental Health Coordinator: Tr Bullard MD BUN/CRE Ratio 15 Normal 9-20 [facility] Comment on above: Performed By: #### C DP, CP, TSH #### [facility] [address] [place] [address] [place], [place] 4676783 Mental Health Coordinator: Willy Jasmine MD #### FT4, LIPR #### [address] [address] Mental Health Coordinator: Tr Bullard MD Calcium [Mass/Vol] 9.5 mg/dL Normal 8.6-10.[address] [facility] Comment on above: Performed By: #### C RYAN ESPARZA, TSH #### [facility] [address] [place] [address] Mental Health Coordinator: Willy Jasmine MD #### FT4, LIPR #### [address] [id number] Mental Health Coordinator: Tr Bullard MD Chloride [Moles/Vol] 102 mmol/L Normal 98-107 [facility] Comment on above: Performed By: #### C RYAN ESPARZA, TSH #### [facility] [address] [place] [address] Mental Health Coordinator: Willy Jasmine MD #### FT4, LIPR #### [address] [id number] Mental Health Coordinator: Tr Bullard MD CO2 [Moles/Vol] 21 mmol/L Normal 20-31 [facility] Comment on above: Performed By: #### C RYAN ESPARZA, TSH #### [facility] [address] [place] [address] [place] [address] Mental Health Coordinator: Willy Jasmine MD #### FT4, LIPR #### [address] [id number] Mental Health Coordinator: Tr Bullard MD Creatinine [Mass/Vol] 0.73 mg/dL Normal 0.50-0.[address] [facility] Comment on above: Performed By: #### C VILMA, RYAN, TSH #### [facility] [address] [place] [address] Mental Health Coordinator: Willy Jasmine MD #### FT4, LIPR #### [address] [address] Mental Health Coordinator: Tr Bullard MD GFR, Amer >60 Normal >60 [facility] Comment on above: Performed By: #### C DP, CP, TSH #### [facility] [address] [place] [address] Mental Health Coordinator: Willy Jasmine MD #### FT4, LIPR #### [address] [id number] Mental Health Coordinator: Tr Bullard MD GFR,non Amer >60 Normal >60 [facility] Comment on above: Performed By: #### C DP, CP, TSH #### [facility] [address] [place], [place] 9274983 Mental Health Coordinator: Willy Jasmine MD #### FT4, LIPR #### [address] [id number] Mental Health Coordinator: Tr Bullard MD Glucose [Mass/Vol] 99 mg/dL Normal 70-[address] [facility] Comment on above: Performed By: #### C DP, CP, TSH #### [facility] [address] [place], [place] 2931783 Mental Health Coordinator: Willy Jasmine MD #### FT4, LIPR #### [address] [phone] Mental Health Coordinator: Tr Bullard MD Potassium [Moles/Vol] 3.9 mmol/L Normal 3.7-5.[address] [facility] Comment on above: Performed By: #### C DP, CP, TSH #### [facility] [address] [place], [place] 7527383 Mental Health Coordinator: Willy Jasmine MD #### FT4, LIPR #### [address] [address] Mental Health Coordinator: Tr Bullard MD Protein [Mass/Vol] 7.6 g/dL Normal 6.4-8.[address] [facility] Comment on above: Performed By: #### C DP, CP, TSH #### [facility] [address] [place] [address] [place]. [place], [place] 2757783 Mental Health Coordinator: Willy Jasmine MD #### FT4, LIPR #### [address] [id number] Mental Health Coordinator: Tr Bullard MD Sodium [Moles/Vol] 132 mmol/L Low 135-[address] [facility] Comment on above: Performed By: #### C DP, CP, TSH #### [address] [place], [place] 8372283 Mental Health Coordinator: Willy Jasmine MD #### FT4, LIPR #### [address] [id number] Mental Health Coordinator: Tr Bullard MD Staging: Normal [facility] Comment on above: Result Comment: Stag e 1: Some kidney damage normal GFR Stage 2: Mild kidney damage GFR 60-89 Stage 3: Moderate kidney damage GFR 30-59 Stage 4: Severe kidney damage GFR 15-29 Stage 5: Severe kidney damage GFR <15 ESRD - chronic treatment by dialysis or transplant Performed By: #### C DP, CP, TSH #### [address] [place], [place] [id number] Mental Health Coordinator: Willy Jasmine MD #### FT4, LIPR #### [address] [id number] Mental Health Coordinator: Tr Bullard MD Urea nitrogen [Mass/Vol] 11 mg/dL Normal 6-[address] [facility] Comment on above: Performed By: #### C DP, CP, TSH #### [address] [place], [place] 7569583 Mental Health Coordinator: Willy Jasmine MD #### FT4, LIPR #### [address] [id number] Mental Health Coordinator: Tr Bullard MD Comprehensive Metabolic Pane rosalinda 08-12-2020 Albumin [Mass/Vol] 3.8 g/dL 3.5 - 5.2 g/dL [facility] [employer] Work Phone: Albumin/Globulin [Mass ratio] 1.0 {ratio} [facility] Phone: ALP [Catalytic activity/Vol] 128 U/L High 35 - 104 U/L [facility] Work Phone: ALT [Catalytic activity/Vol] 19 U/L 5 - 33 U/L [facility] Phone: Anion gap [Moles/Vol] 9 mmol/L 9 - 17 mmol/L [facility] Phone: AST [Catalytic activity/Vol] 16 U/L <32 [facility] Phone: Bilirubin Ql (U) 0.37 mg/dL 0.3 - 1.2 mg/dL [facility] Phone: Bun/Cre Ratio 15 [facility] [employer] Work Phone: Calcium [Mass/Vol] 9.5 mg/dL 8.6 - 10. 4 mg/dL [facility] Phone: Chloride [Moles/Vol] 102 mmol/L 98 - 10 7 mmol/L [facility] Phone: CO2 [Moles/Vol] 21 mmol/L 20 - 31 mmol/L [facility] Phone: Creatinine [Mass/Vol] 0.73 mg/dL 0.5 - 0.9 mg/dL [facility] Phone: GFR >60 >60 mL/min [employer] Phone: GFR Non- >60 >60 mL/min [facility] Phone: Glucose [Mass/Vol] 99 mg/dL 70 - 99 mg/dL [facility] [employer] Phone: Potassium [Moles/Vol] 3.9 mmol/L 3.7 - 5.3 mmol/L [facility] [employer] Phone: Protein [Mass/Vol] 7.6 g/dL 6.4 - 8.3 g/dL [facility] [employer] Phone: Sodium [Moles/Vol] 132 mmol/L Low 135 - 144 mmol/L [facility] Phone: Urea nitrogen [Mass/Vol] 11 mg/dL 6 - 20 mg/dL [facility] Phone: Lipid Panelon 08-12-2020 Cholesterol [Mass/Vol] 167 mg/dL <200 [facility] Phone: Comment on above: Cholesterol Guidelines: <200 Desirable 200-240 Borderline >240 Undesirable Cholesterol in HDL [Mass/Vol] 34 mg/dL Low >40 [facility] Phone: Comment on above: HDL Guidelines: <40 Undesirable 40-59 Borderline >59 Desirable Cholesterol in LDL [Mass/Vol] 103 mg/dL 0 - 130 mg/dL [facility] Phone: Comment on above: LDL Guidelines: <100 Desirable 100-129 Near to/above Desirable 130-159 Borderline >159 Undesirable Direct (measured) LDL and calculated LDL are not interchangeable tests. Cholesterol in VLDL [Mass/Vol] NOT REPORTED 1 - 30 mg/dL [facility] Phone: Cholesterol.total/Ch olesterol in HDL [Mass ratio] 4.9 {ratio} <5 [facility] Phone: Interpretation and review of laboratory results Abnormal [facility] Phone: Triglyceride [Mass/Vol] 148 mg/dL <150 [facility] Phone: Comment on above: Triglyceride Guidelines: <150 Desirable 150-199 Borderline 200-499 High >499 Very high Based on AHA Guidelines for fasting triglyceride, March 2012. Lipid Profileon 08-12-2020 Cholesterol [Mass/Vol] 167 mg/dL Normal <[address] [facility] Comment on above: Result Comment: Cholesterol Guidelines: <200 Desirable 200-240 Borderline >240 Undesirable Performed By: #### C RYAN ESPARZA, TSH #### [address] [place], [place] [phone] Mental Health Coordinator: Willy Jasmine MD #### FT4, LIPR #### [address] [address] Mental Health Coordinator: Tr Bullard MD Cholesterol in HDL [Mass/Vol] 34 mg/dL Low >[address] [facility] Comment on above: Result Comment: HDL Guidelines: <40 Undesirable 40-59 Borderline >59 Desirable Performed By: #### C RYAN ESPARZA, TSH #### [address] [place] [address] Mental Health Coordinator: Willy Jasmine MD #### FT4, LIPR #### [address] [address] Mental Health Coordinator: Tr Bullard MD Cholesterol in LDL [Mass/Vol] 103 mg/dL Normal 0-[address] [facility] Comment on above: Result Comment: LDL Guidelines: <100 Desirable 100-129 Near to/above Desirable 130-159 Borderline >159 Undesirable Direct (measured) LDL and calculated LDL are not interchangeable tests. Performed By: #### C RYAN ESPARZA, TSH #### [facility] [address] [place] [address] [place] [place], [place] 8870983 Mental Health Coordinator: Willy Jasmine MD #### FT4, LIPR #### [address] [place] [address] Mental Health Coordinator: Tr Bullard MD Cholesterol.total/Ch olesterol in HDL [Mass ratio] 4.9 {ratio} Normal <[address] [facility] Comment on above: Performed By: #### C RYAN ESPARZA, TSH #### [address] [place] [address] Mental Health Coordinator: Willy Jasmine MD #### FT4, LIPR #### [facility] [address] [place], [place] [id number] Mental Health Coordinator: Tr Bullard MD Triglyceride [Mass/Vol] 148 mg/dL Normal <[address] [facility] Comment on above: Result Comment: Triglyceride Guidelines: <150 Desirable 150-199 Borderline 200-499 High >499 Very high Based on AHA Guidelines for fasting triglyceride, March 2012. Performed By: #### C DP, CP, TSH #### [facility] [address] [place], [place] [id number] Mental Health Coordinator: Willy Jasmine MD #### FT4, LIPR #### [facility] [address], [place] [id number] Mental Health Coordinator: Tr Bullard MD Cholesterol in VLDL [Mass/Vol] NOT REPORTED Normal 07-[address] [facility] Comment on above: Performed By: #### C DP, CP, TSH #### [facility] [address] [place], [place] [id number] Mental Health Coordinator: Willy Jasmine MD #### FT4, LIPR #### [facility] [address], [place] [id number] Mental Health Coordinator: Tr Bullard MD Metabolic Panelon 08-12-2020 GFR/1.73 sq M predicted among non-blacks MDRD (S/P/Bld) [Vol rate/Area] [facility] Work Phone: Comment on above: Average GFR for 40-4 9 years old: 99 mL/min/1.73sq m Chronic Kidney Disease: <60 mL/min/1.73sq m Kidney failure: <15 mL/min/1.73sq m eGFR calculated using average adult body mass. Additional eGFR calculator available at: http://[email or web address].FastHealth/multiple_crcl_2012.htm Stage 1: Some kidney damage normal GFR Stage 2: Mild kidney damage GFR 60-89 Stage 3: Moderate kidney damage GFR 30-59 Stage 4: Severe kidney damage GFR 15-29 Stage 5: Severe kidney damage GFR <15 ESRD - chronic treatment by dialysis or transplant Otheron 08-12-2020 Interpretation and review of laboratory results Abnormal [facility] Phone: T4, Freeon 08-12-2020 Thyroxine, Free 1.69 ng/dL 0.93 - 1.7 ng/dL [facility] Phone: TSH without Reflexon 021 TSH Qn 0.28 m[IU]/L Low [facility] Phone: Thyroid Stim. Horm.on 2020 TSH Qn 0.28 m[IU]/L Low 0.30-5.[address] [facility] Comment on above: Performed By: #### C DP, CP, TSH #### [facility] [address] [place] [address] [place] [id number] Mental Health Coordinator: Willy Jasmine MD #### FT4, LIPR #### [address] [address] Mental Health Coordinator: Tr Bullard MD Thyroxine, Freeon 08-12-2020 Thyroxine, Free 1.69 ng/dL Normal 0.93-1.70 [facility] Comment on above: Performed By: #### C DP, CP, TSH #### [address] [place] [address] Mental Health Coordinator: Willy Jasmine MD #### FT4, LIPR #### [place] [id number] Mental Health Coordinator: Tr Bullard MD Measles (Rubeola) Imon 04-27 Measles (Rubeola) Im 3.86 Normal >1.09 [facility] Comment on above: Result Comment: Interpretation: IMMUNE Reference Range: <0.91 Not Immune 0.91-1.09 Equivocal >1.09 Immune Performed By: #### M EI, JEREMY, AHBS, VZI, DAVIDSON #### [place] [address] [place], [place] [id number] Mental Health Coordinator: Tr Bullard MD Mumps,Immun,Abon 04-27-2020 Mumps,Immun,Ab 4.77 Normal >1.09 [facility] Comment on above: Result Comment: Interpretation: IMMUNE Reference Range: <0.91 Not Immune 0.91-1.09 Equivocal >1.09 Immune Performed By: #### M YINKA JEREMY, AHBS, VZI, DAVIDSON #### [facility] [employer] [address] [place] [phone] Mental Health Coordinator: Tr Bullard MD VZ Immunityon 04-27-2020 VZ Immunity 2.29 Normal >1.[address] [facility] Comment on above: Result Comment: Interpretation: IMMUNE Reference Range: <0.91 Not Immune 0.91-1.09 Equivocal >1.09 Immune Performed By: #### M TORREY HONEYCUTTI, XOCHITLBS, VZI, DAVIDSON #### [facility] [employer] [address] [place] [phone] Mental Health Coordinator: Tr Bullard MD Hep B Surf Abon 04-26-2020 Hep B Surf Ab 485.80 mIU/mL High <10 [facility] Comment on above: Result Comment: REFERENCE RANGE: <10.0 NON-REACTIVE/NOT IMMUNE >=10.0 REACTIVE/IMMUNE The presence of Anti-HBs usually indicates recovery from acute or chronic HBV infection or acquired immunity from HBV vaccination. Positive results (quantitative levels of equal to or greater than 10.0 mIU/mL) indicate an adequate immunity from previous infection, vaccination or immune globulin adminstration. Anti-HBc would help define positivity due to Hepatitis B infection. Performed By: #### M JEREMY HONEYCUTT, AHBS, VZI, DAVIDSON #### [facility] [employer] [address] [place] [id number] Mental Health Coordinator: Tr Bullard MD Rubella Ab, IgGon 04-26-2020 Rubella Ab, IgG 7.8 IU/mL Normal [facility] Comment on above: Result Comment: REFERENCE RANGE: <5.0 NON-REACTIVE (non-immune) 5.0 TO 9.9 EQUIVOCAL >=10.0 REACTIVE (immune) Performed By: #### M EI, JEREMY, AHBS, VZI, DAVIDSON #### [facility] [address] [place] [address] Mental Health Coordinator: Tr Bullard MD Hepatitis B Surface Antibody on 04-25-2020 HBV surface Ab (S) [Titer] 485.8 High <10 mIU/mL [place], [place] Comment on above: REFERENCE RANGE: <10.0 NON-REACTIVE/NOT IMMUNE >=10.0 REACTIVE/IMMUNE The presence of Anti-HBs usually indicates recovery from acute or chronic HBV infection or acquired immunity from HBV vaccination. Positive results (quantitative levels of equal to or greater than 10.0 mIU/mL) indicate an adequate immunity from previous infection, vaccination or immune globulin adminstration. Anti-HBc would help define positivity due to Hepatitis B infection. Interpretation and review of laboratory results Abnormal [place], [place] Rubella antibody, IgGon Rubella virus IgG Ql (S) 7.8 IU/mL [place] Comment on above: REFERENCE RANGE: <5.0 NON-REACTIVE (non-immune) 5.0 TO 9.9 EQUIVOCAL >=10.0 REACTIVE (immune) PROGRESSon 11-24-2019 PROGRESS HNO ID: [id number] Author: Chinedu Martinez Service: ? Author Type: Psychologist Type: Progress Notes Filed: 11/24/2019 9:14 AM Note Text: GENERAL PSYCHOLOGY Michelle/722 ECO virtual visit. This document has been created with the use of voice recognition technology. It may contain inaccuracies, misspellings, syntax errors, or word sense that escaped review due to the author's visual impairment. Due to the [facility] [place] [facility] and the need for ongoing mental health services, the following visit was completed virtually to reduce the risk of COVID-19 exposure. Consent related to virtual visits was provided verbally after information was sent electronically or read to patient. Telepsycholgy risk/benefit: The concerns and coditions of this patient are judged to be in a range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
[2024-03-29 15:20] VITALS: BP 150/84; PULSE 60; TEMP 36.8; O2SAT 98; BMI 41.6
--- NOTE | 2024-03-29 15:30 | PC.NURSE ---
various areas to body with flee bites, no drainage, no blisters and scabs to most fo them.
--- NOTE | 2024-03-29 15:50 | ED_ITS ---
<Statement entered by Speedy Mason MD - 03/30/24 09:25> This documentation has been reviewed and approved. Chart was sent to my inbox for administrative and group management purposes. I was the attending physicians working during the patients hospital course. The patient was seen and managed independently by the MLP. I did not personally see or evaluate this patient, nor was I involved in the patient medical decision making process or plans of care. Pt was dispositioned by the MLP with complete independence. I was available for consultation should the MLP request during this patients ED stay HPI - Skin/Abscess/Foreign Bdy General Chief complaint: Skin/Abscess/Foreign Body Stated complaint: Bite Time Seen by Provider: 03/29/24 15:22 Source: patient Mode of arrival: walk-in History of Present Illness HPI narrative: Patient is a 43-year-old female presents to the ER with concerns of multiple bites. Patient has an indoor cat, states this has been going on for some time where she has been itching multiple bites to her bilateral forearms and ankles. Patient believes she has seen fleas jumping on her carpet. She is taking Vistaril for itching. I am initially prescribed it for anxiety. Patient reports having allergic reaction to insect bites in the past. She has various stages of insect bites to both arms and legs with excoriation. Pt denies any fever or chills, denies antibiotic allergies. complaint: Reports insect bite/sting; Denies rash or laceration Onset (ago): day(s) Tetanus up to date: yes Severity: moderate (itching) Quality: Denies burning Pain Consistency: Denies constant Relieving factors: Reports none Exacerbating factors: Denies none Context: Denies none Treatments prior to arrival: Reports other (vistaril) Related Data Previous Rx's ?Medication ?Instructions ?Recorded doxycycline hyclate 100 mg capsule 100 mg PO BID 10 days #20 caps 03/29/24 hydroxyzine pamoate 25 mg capsule 25 mg PO TID PRN itching 7 days 03/29/24 (Vistaril) #21 caps Allergies Allergy/AdvReac Type Severity Reaction Status Date / Time acetaminophen [From [place]] Allergy Severe Hallucinati Verified 03/29/24 15:24 ng hydrocodone [From [place]] Allergy Severe Hallucinati Verified 03/29/24 15:24 ng latex Allergy Severe Rash Verified 03/29/24 15:24 sertraline [From [place]] Allergy Severe Hallucinati Verified 03/29/24 15:24 ng Review of Systems ROS Constitutional Denies: fever or chills Ears, nose, mouth, and throat Denies: throat pain or neck pain Cardiovascular Denies: chest pain or palpitations Respiratory Denies: shortness of breath or cough Gastrointestinal Denies: abdominal pain, nausea or vomiting Musculoskeletal Denies: back pain or neck pain Integumentary/Breast Reports: itching and sores Neurological Denies: headache Psychiatric Reports: anxiety Endocrine Denies: excessive urination Hematologic/Lymphatic Denies: easy bruising Allergic/Immunologic Denies: hives, tongue swelling, facial swelling, wheezing or itchy eyes Exam Narrative Exam Narrative: Vital Signs and nurse's notes are reviewed. The patient is not hypoxic. General: Alert, no acute distress, patient resting comfortably Skin: warm, intact, no pallor noted. The patient has evidence multiple circular scabs noted to the bilateral lower legs circumferential and bilateral forearms. There is no burrowing in the intertriginous space of the fingers or toes. There are areas of new bites that appear more like a erythematous wheal or hive and some locations do have 3 bites in a row concerning for possible bedbug presentation. No involvement of the trunk or back. No involvement of the face. The patient has no evidence of petechiae, purpura, or vesicles. The patient has no sloughing of the skin. The patient has no involvement of the palms, soles, or oral mucosa. The patient has no significant want associated. Head: Normocephalic, atraumatic Eye: Normal conjunctiva, No exudates Ears, nose, throat: moist mucous membranes, there is no involvement of the oral mucosa, there is no lip or tongue swelling. The patient has airway patent. The patient has no tonsillar hypertrophy or swelling to the posterior oropharynx. No evidence of Vesicles. Neck: The patient has no masses, warmth, or erythema. The patient has no meningeal signs. The patient has no nuchal rigidity noted. Cardiovascular: Regular Rate and Rhythm Respiratory: No acute distress, tachypnea, mild rhonchi and wheezing noted in bilateral lung perea. No round noted. No retractions or stridor. Abdomen: Normal bowel sounds, soft, nontender, no rebound, guarding or rigidity noted. No masses detected. Musculoskeletal: Normal range of motion, no calf tenderness noted bilaterally, no edema noted. Negative Lino's sign bilaterally. no evidence of cyanosis or mottling noted to the extremities. Pulses intact. Neurological: alert and oriented x4, normal speech, normal motor, normal sensory Psychiatric: Cooperative. Constitutional Vital Signs, click to edit/add: Last Vital Signs Temp 98.2 F 03/29/24 15:20 Pulse 60 03/29/24 15:20 Resp 16 03/29/24 15:20 BP 150/84 H 03/29/24 15:20 Pulse Ox 98 03/29/24 15:20 O2 Del Method Room Air 03/29/24 15:20 Course Vital Signs Vital signs: Vital Signs Temperature 98.2 F 03/29/24 15:20 Pulse Rate 60 03/29/24 15:20 Respiratory Rate 16 03/29/24 15:20 Blood Pressure 150/84 H 03/29/24 15:20 Pulse Oximetry 98 03/29/24 15:20 Oxygen Delivery Method Room Air 03/29/24 15:20 Temperature 98.2 F 03/29/24 15:20 Pulse Rate 60 03/29/24 15:20 Respiratory Rate 16 03/29/24 15:20 Blood Pressure 150/84 H 03/29/24 15:20 Pulse Oximetry 98 03/29/24 15:20 Oxygen Delivery Method Room Air 03/29/24 15:20 MDM - Skin/Abscess/Foreign Bdy MDM Narrative Medical decision making narrative: Reviewed symptoms with patient, notable pruritus with excoriation at previous source, discussed antibiotic treatment given various stages of excoriation localized erythema. No evidence of diffuse cellulitis. We discussed symptom control with cool compresses but most importantly contacting firmware engineer to eliminate the symptoms. She was given refill of her Vistaril for itching as she was taking it for anxiety previously. We will hold on oral steroids given presentation and the need to eradicate the causative agent at home contributing to her symptoms. Patient verbalized understanding and had no further concerns o r questions. She denies any outdoor explorations and we will hold on permethrin treatment at this time as patient feels this is fleas as she has seen them in her home. The patient is to followup with primary care physician in next 2-3 days or to return to the emergency department should any of the signs or symptoms worsen or new symptoms develop. Patient had questions answered. The patient agrees with the following Diagnosis and Treatment plan and the patient will be discharged home. Discharge Plan Discharge Chief Complaint: Skin/Abscess/Foreign Body Clinical Impression: Insect bite, Flea bite of multiple sites Patient Disposition: Home, Self-Care Time of Disposition Decision: 15:50 Condition: Good Prescriptions / Home Meds: New doxycycline hyclate 100 mg capsule 100 mg PO BID 10 Days Qty: 20 0RF hydroxyzine pamoate [Vistaril] 25 mg capsule 25 mg PO TID PRN (Reason: itching) 7 Days Qty: 21 0RF Print Language: Slovenian Instructions: Insect Bite or Sting (ED), Cold Compress or Soak (ED) Additional Instructions: Recommend contacting Track Repairer for Home inspection Referrals: Carmela Renee NP [Primary Care Provider] - 1 week
[2024-03-29] MEDS: DOXYCYCLINE MONOHYDRATE 100 MG CAPSULE PO (15:59)
== END 2024-03-29 16:02 | disposition home or self-care (01) ==
PROVIDERS: Emergency Provider Emergency Medicine; PCP Nurse Practitioner
DX: S50.862A Insect bite (nonvenomous) of left forearm, initial encounter (principal); S50.861A Insect bite (nonvenomous) of right forearm, initial encounter; S80.862A Insect bite (nonvenomous), left lower leg, initial encounter; S80.861A Insect bite (nonvenomous), right lower leg, initial encounter; W57.XXXA Bitten or stung by nonvenomous insect and other nonvenomous arthropods, initial encounter
CPT/HCPCS: 99283

== ENCOUNTER 2025-03-03 09:30 | Outpatient (OUT) | payer BC, SELFPAY ==
--- OUTSIDE RECORDS SUMMARY | 2025-03-03 09:32 | XMS_ITS | Clinical Summary ---
Author Organization [facility] Address [address], [address] [place] [address] Care Team Providers Care Theology Teacher Name Role Phone Carmela Renee DISTRIBUTION ANALYST - MOLD PULLER Primary Care Provide r Social History Tobacco Use Types Packs/Day Years Used Date Smoking Tobacco: Never Assessed Comments Unknown Sex and Gender Information Value Date Recorded Sex Assigned at Not on file Legal Sex Female 9:15 AM EST Gender Identity Not on file Sexual Orientation Not on file Plan of Treatment Not on file Insurance [facility] [employer] Care Teams Theology Teacher Relationship Specialty Start Date End Date Carmela Renee, DISTRIBUTION ANALYST - MOLD PULLER [address] [place] [id number] PCP - General Nurse Practitioner 08/12/20
--- OUTSIDE RECORDS SUMMARY | 2025-03-03 09:32 | XMS_ITS | Encounter Summary ---
Author Organization [facility] Address [address] [place] [address] Care Team Providers Care Tractor Driver Name Role Phone Carmela Renee NP Unavailable [phone] Carmela Renee NP Unavailable [phone] Unallocated, Noms Provider Primary Care Provi mitch Chadwick Sauceda MD Primary Care Provider [phone] Carmela Renee NP Unavailable [phone] Encounter Details Date Type Department Care Team (Late st Contact Info) Description 01/03/2024 Clinisync Result Encounter [facility] External Department Unsolicited Carmela Renee NP [address] [place] [id number] Social History Tobacco Use Types Packs/Day Years Used Date Smoking Tobacco: Never Smokeless Tobacco: Never Alcohol Use Standard Drinks/Week Comments Yes 0 (1 standard drink = 0.6 oz pur e alcohol) rarely Social Connection and Isolation Panel [NHANES] A nswer Date Recorded In a typical week, how many times do you talk on the phone with family, friends, or neighbors? Patient declined 10/04/2023 How often do you get togethe r with friends or relatives? Patient declined 10/04/2023 How often do you attend oriental orthodox or amish serv ices? Never 10/04/2023 Do you belong to any clubs o r organizations such as oriental orthodox groups, unions, fraternal or athletic groups, or school groups? No 10/04/2023 How often do you attend meet ings of the clubs or organizations you belong to? Patient declined 10/04/2023 Are you , , di vorced, , never , or living with a partner? Never 10/04/2023 AUDIT-C Answer Date Recorded Q1: How often do you have a drink containing alc ohol? Monthly or less 10/04/2023 Q2: How many drinks containi ng alcohol do you have on a typical day when you are drinking? 1 or 2 10/04/2023 Q3: How often do you have si x or more drinks on one occasion? Never 10/04/2023 Overall Financial Resource Strain (CARDIA) Answe r Date Recorded How hard is it for you to pa y for the very basics like food, housing, medical care, and heating? Not hard at all 10/04/2023 PHQ-2 Answer Date Recorded Patient Health Questionnaire-2 Score 4 10/07/2023 [facility] - Occupational Stress Questionnaire Answer Date Recorded Do you feel stress - tense, restless, nervous, or anxious, or unable to sleep at night because your mind is troubled all the time - these days? To some extent 10/04/2023 Exercise Vital Sign Answer Date Recorde d On average, how many days pe r week do you engage in moderate to strenuous exercise (like a brisk walk)? 0 days 10/04/2023 On average, how many minutes do you engage in exercise at this level? 0 min 10/04/2023 Hunger Vital Sign Answer Date Recorded Within the past 12 months, y ou worried that your food would run out before you got the money to buy more. Never true 10/04/19 24 Within the past 12 months, t he food you bought just didn't last and you didn't have money to get more. Never true 10/04/2023 PRAPARE - Transportation Answer Date Re corded In the past 12 months, has l ack of transportation kept you from medical appointments or from getting medications? No 09/22 In the past 12 months, has l ack of transportation kept you from meetings, work, or from getting things needed for daily living? No 10/04/2023 Housing Stability Vital Sign Answer Tom e Recorded In the last 12 months, was t here a time when you were not able to pay the mortgage or rent on time? No 10/04/2023 In the last 12 months, how many places have you lived? 1 10/04/2023 In the last 12 months, was t here a time when you did not have a steady place to sleep or slept in a care home (including now)? No 10/04/2023 Comments Unknown Sex and Gender Information Value Date Recorded Sex Assigned at Not on file Legal Sex Female 8:28 PM EDT Gender Identity Not on file Sexual Orientation Not on file documented as of this encounter Plan of Treatment Not on file documented as of this encounter Procedures Procedure Name Priority Date/Time Associated Diagnosis Comments MM TOMOSYNTHESIS SCREENING BI 01/03/2024 12:57 PM EDT documented in this encounter Results * MM TOMOSYNTHESIS SCREENING BI (01/03/2024 12:57 PM EDT) Anatomical Region Laterality Modality Other 01/03/2024 12:5 7 PM EDT Narrative 01/03/2024 12:58 [place] [address] Mammography Report Signed Patient: Henrietta Cabrales MR#: [id number] : 1980 Acct:[id number] Age/Sex: 43 / F ADM Date: 01/03/24 Loc: MAMMO Attending Dr: Carmela Renee NP Ordering Physician: Carmela Renee NP Results: Date of Service: 01/03/24 Follow Up: Procedure(s): MM tomosynthesis screening BI Accession Number(s): [id number] cc: Carmela Renee NP Patient Name: HENRIETTA CABRALES MR#: [id number] : 1980 Exam Date: 01/03/2024 Ordering Doctor: KENYETTA Renee CNP RADIOLOGY REPORT PROCEDURE: MM TOMOSYNTHESIS SCREENING BI COMPARISON: MG MAMM RT DIAG FU, 12/27/2021. MM TOMOSYNTHESIS SCREENING BI, 01/01/2023. INDICATIONS: Screening Calculator Name NCI Breast Cancer Risk Assessment Tool 5 Year Breast Cancer Risk 0.90% Lifetime Breast Cancer Risk 10.60% Personal Breast Cancer No Personal Ovarian Cancer No Treatments None Family Cancers None LOCATION: [facility] BREAST COMPOSITION: There are scattered areas of fibroglandular density. FINDINGS: DIAGNOSTIC CATEGORY 1--NEGATIVE. NO CHANGE FROM COMPARISON ASSESSMENT. Scattered benign-appearing lymph nodes are present. RIGHT BREAST: No significant suspicious finding. LEFT BREAST: No significant suspicious finding. RECOMMENDATIONS: ROUTINE MAMMOGRAM AND CLINICAL EVALUATION IN 12 MONTHS. PLEASE NOTE: A NORMAL MAMMOGRAM DOES NOT EXCLUDE THE POSSIBILITY OF BREAST CANCER. A CLINICALLY SUSPICIOUS PALPABLE LUMP SHOULD BE BIOPSIED. Dictated by: Vini Soto MD on 01/03/2024 at 12:56 Approved by: Vini Soto MD on 01/03/2024 at 12:57 Dictated By: Vini Soto M.D. Signed By: 01/03/24 1258 DD/ 1257 TD/TT: Director Music: Procedure Note Radiology, Radiologist, MD - 01/03/2024 [place] [address] Mammography Report Signed Patient: Henrietta Cabrales JMR#: [id number] : 1980Acct:[id number] Age/Sex: 43 / FADM Date: 01/03/24 Loc: MAMMO Attending Dr: Carmela Renee NP Ordering Physician: Carmela Renee NPResults: Date of Service: 01/03/24Follow Up: Procedure(s): MM tomosynthesis screening BI Accession Number(s): [id number] cc: Carmela Renee NP Patient Name: HENRIETTA CABRALES MR#: [id number] : 1980 Exam Date: 01/03/2024 Ordering Doctor: KENYETTA Renee CNP RADIOLOGY REPORT PROCEDURE: MM TOMOSYNTHESIS SCREENING BI COMPARISON: MG MAMM RT DIAG FU, 12/27/2021. MM TOMOSYNTHESIS SCREENINGBI, 01/01/2023. INDICATIONS: Screening Calculator Name NCI Breast Cancer Risk Assessment Tool 5 Year Breast Cancer Risk 0.90% Lifetime Breast Cancer Risk 10.60% Personal Breast Cancer No Personal Ovarian Cancer No Treatments None Family Cancers None LOCATION: [facility] BREAST COMPOSITION: There are scattered areas of fibroglandulardensity. FINDINGS: DIAGNOSTIC CATEGORY 1--NEGATIVE. NO CHANGE FROM COMPARISON ASSESSMENT. Scattered benign-appearing lymph nodes are present. RIGHT BREAST: No significant suspicious finding. LEFT BREAST: No significant suspicious finding. RECOMMENDATIONS: ROUTINE MAMMOGRAM AND CLINICAL EVALUATION IN 12 MONTHS. PLEASE NOTE: A NORMAL MAMMOGRAM DOES NOT EXCLUDE THE POSSIBILITY OFBREAST CANCER. A CLINICALLY SUSPICIOUS PALPABLE LUMP SHOULD BE BIOPSIED. Dictated by: Vini Soto MD on 01/03/2024 at 12:56 Approved by: Vini Soto MD on 01/03/2024 at 12:57 Dictated By: Vini Soto M.D. Signed By:01/03/24 1258 DD/ 1257 TD/TT: Director Music: us Carmela Renee NP [facility] Final Result documented in this encounter Visit Diagnoses Not on filedocumented in this encounter Additional Health Concerns Assessment Noted Time PHQ-9 Depression Total Score: 8 10/07/19 24 2:12 PM EDT documented as of this encounter Care Teams Tractor Driver Relationship Specialty Start Date End Date Unallocated, Noms ProviderMD [address] [place] [address] PCP - General Family Medicine 04/08/24 04/22/24 Chadwick Sauceda MD [address] [place] [address] PCP - General Family Medicine 04/23/24 Carmela Renee NP [address] [place] [address] [facility] 09/22/24 Carmela Renee NP Referring Physician Nurse Practitioner 01/09/23 Carmela Renee NP Primary Care Provider Family Medicine 10/07/23 documented as of this encounter
--- OUTSIDE RECORDS SUMMARY | 2025-03-03 09:32 | XMS_ITS | Encounter Summary ---
Author Organization [facility] Address [address] [place] [address] Care Team Providers Care Hoof Trimmer Name Role Phone Chadwick Sauceda MD Primary Care Provider [phone] Carmela Renee PEARL DIGGER Unavailable [phone] Carmela Renee PEARL DIGGER Unavailable [phone] Unallocated, Noms Provider Primary Care Provi mitch Chadwick Sauceda MD Primary Care Provider [phone] Carmela Renee PEARL DIGGER Unavailable [phone] Encounter Details Date Type Department Care Team (Late st Contact Info) Description 06/24/2023 Abstract [facility] [address] [place] [address] Carmela Renee PEARL DIGGER [address] [id number] Social History Tobacco Use Types Packs/Day Years Used Date Smoking Tobacco: Never Smokeless Tobacco: Never Tobacco Cessation:Counseling Given: Not Answered Alcohol Use Standard Drinks/Week Comments Yes 0 (1 standard drink = 0.6 oz pur e alcohol) rarely Comments Unknown Sex and Gender Information Value Date Recorded Sex Assigned at Not on file Legal Sex Female 8:28 PM EDT Gender Identity Not on file Sexual Orientation Not on file documented as of this encounter Plan of Treatment Not on file documented as of this encounter Visit Diagnoses Not on filedocumented in this encounter Care Teams Hoof Trimmer Relationship Specialty Start Date End Date Chadwick Sauceda MD PCP - General Family Medicine 01/09/23 10/06/23 Unallocated, Noms MD [address] [place] [address] PCP - General Family Medicine 04/08/24 04/22/24 Chadwick Sauceda MD [address] [place] [address] PCP - General Family Medicine 04/23/24 Carmela Renee NP [address] [facility] [address] [place] [address] PCP - [facility] 09/22/24 Carmela Renee NP Referring Physician Nurse Practitioner 01/09/23 Carmela Renee NP Primary Care Provider Family Medicine 10/07/23 documented as of this encounter
--- OUTSIDE RECORDS SUMMARY | 2025-03-03 09:32 | XMS_ITS | Clinical Summary ---
Author Organization [facility] Address [id number] [address] [place] [address] Care Team Providers Care Instructional Leader Name Role Phone Unavailable Primary Care Provider Unavailabl e Social History Tobacco Use Types Packs/Day Years Used Date Smoking Tobacco: Never Assessed Childcare Answer Date Recorded Childcare Unknown 12/03/2018 Employment Answer Date Recorded Employment Unknown 12/03/2018 Comments Unknown Sex and Gender Information Value Date Recorded Sex Assigned at Not on file Legal Sex Female 11:24 AM EDT Gender Identity Not on file Sexual Orientation Not on file Plan of Treatment Not on file Medical Devices Not on file
--- OUTSIDE RECORDS SUMMARY | 2025-03-03 09:33 | XMS_ITS | Clinical Summary ---
Author Organization [facility] Address [address] [place], [place] [id number] Care Team Providers Care Insurance Writer Name Role Phone YeyohaleykerenJenn avinalexy Mercado CNP Primary Care Provider [phone] Social History Tobacco Use Types Packs/Day Years Used Date Smoking Tobacco: Never Assessed PHQ-2 Answer Date Recorded PHQ-2 score 3 11/24/2019 Area Deprivation Index Answer Date Grzegorz rded National Score (1-100), lower number is lower ri sk Not on file 06/03/2020 State Score (1-10), lower number is lower risk N ot on file 06/03/2020 Data from: https://www.neighborhoodatlas.medicine.[facility]/. Last address used for calculation Not on file 06/03/2020 Comments Unknown Sex and Gender Information Value Date Recorded Sex Assigned at Not on file Legal Sex Female 1:20 PM EDT Gender Identity Not on file Sexual Orientation Not on file Plan of Treatment Health Maintenance Due Date Last Done Comments Anxiety Screening 1996 Depression Screening 1996 HIV Screening 1996 Hepatitis C Screening 1996 DTaP,Tdap,Td Vaccine (1 - Tdap) 1997 Hepatitis B Vaccine (1 of 3 - 19+ 3-dose series) 08/26 Cervical Cancer Screening 08/27/[address] Colonography 08/27/2023 Cologuard (FIT-DNA) 08/27/2023 Colonoscopy 08/27/2023 Colorectal Cancer Screening 08/27/2023 Diabetes Screening 08/27/2023 Fecal Occult Blood 08/27/2023 Lipid Screening 08/27/2023 Sigmoidoscopy 08/27/2023 Influenza Vaccine (#1) 2025 Insurance [employer] Care Teams Insurance Writer Relationship Specialty Start Date End Date Carmela Renee, SPEAKER WIRER PCP - General Family Medicine 10/28/19
--- OUTSIDE RECORDS SUMMARY | 2025-03-03 09:33 | XMS_ITS | Encounter Summary ---
Author Organization [facility] Address [address] [place] [address] Care Team Providers Care [employer] Name Role Phone Carmela Renee SNAKER TRACTOR DRIVER Unavailable [phone] Carmela Renee SNAKER TRACTOR DRIVER Unavailable [phone] Unallocated, [facility] Provider Primary Care Provi mitch Chadwick Suaceda MD Primary Care Provider [phone] Carmela Renee SNAKER TRACTOR DRIVER Unavailable [phone] Encounter Details Date Type Department Care Team (Late st Contact Info) Description 01/06/2024 Orders Only [facility] [address] [place] [address] Carmela Renee SNAKER TRACTOR DRIVER [address] [place] [id number] Social History Tobacco Use Types Packs/Day Years [...] declined 10/04/2023 How often do you attend baptism or jewish serv ices? Never 10/04/2023 Do you belong to any clubs o r organizations such as baptism groups, unions, fraternal or athletic groups, or [...] Recorded Patient Health Questionnaire-2 Score 4 10/07/2023 [facility] - Occupational Stress Questionnaire Answer Date Recorded [...] place to sleep or slept in a mcc (including now)? No 10/04/2023 Comments Unknown Sex and Gender Information Value Date Recorded Sex Assigned at Not on file Legal Sex Female 8:28 PM EDT Gender Identity Not on file Sexual Orientation Not on file documented as of this encounter Plan of Treatment Not on file documented as of this encounter Procedures Procedure Name Priority Date/Time Associated Diagnosis Comments BI MAMMOGRAM SCREENING TOMOSYNTHESIS BILATERAL Routine 01/06/2024 10:19 AM EDT documented in this encounter Results * Bilateral screening mammogram with tomosynthesis (01/06/2024 10:19 AM EDT) Anatomical Region Laterality Modality Breast Bilateral Mammography us Carmela Renee NP IMG BI PROCEDURES Final Result documented in this encounter Visit Diagnoses Not on filedocumented in this encounter Additional Health Concerns Assessment Noted Time PHQ-9 Depression Total Score: 8 10/07/19 2:12 PM EDT documented as of this encounter Care Teams [employer] Relationship Specialty Start Date End Date Unallocated, [facility] MD [address] [place] [address] PCP - General Family Medicine 04/08/24 04/22/24 Chadwick Sauceda [facility] [address] [facility] [place] [address] PCP - General Family Medicine 04/23/24 Carmela Renee NP [address] [place] [address] [facility] Carmela Renee NP Referring Physician Nurse Practitioner 01/09/23 Carmela Renee NP Primary Care Provider Family Medicine 10/07/23 documented as of this encounter
--- NOTE | 2025-03-03 09:35 | MM_ITS ---
Patient Name: PATITO CABRALES MR#: [id number] : 1980 Exam Date: 03/03/2025 Ordering Doctor: KENYETTA SCHWARTZ CNP RADIOLOGY REPORT PROCEDURE: MM TOMOSYNTHESIS SCREENING BI COMPARISON: MM TOMOSYNTHESIS SCREENING BI, 01/03/2024. MM TOMOSYNTHESIS SCREENING BI, 01/01/2023. MG MAMM RT DIAG FU, 12/27/2021. MG MAMM SCREEN 3D OLI CAD, 12/18/2021. INDICATIONS: screening Calculator Name NCI Breast Cancer Risk Assessment Tool 5 Year Breast Cancer Risk 0.90% Lifetime Breast Cancer Risk 10.50% Personal Breast Cancer No Personal Ovarian Cancer No Treatments None Family Cancers None LOCATION: [facility] BREAST COMPOSITION: There are scattered areas of fibroglandular density. FINDINGS: RIGHT BREAST: No significant suspicious finding. LEFT BREAST: No significant suspicious finding. DIAGNOSTIC CATEGORY 1--NEGATIVE. RECOMMENDATIONS: ROUTINE MAMMOGRAM AND CLINICAL EVALUATION IN 12 MONTHS. Dictated by: Bg Hall DO on 03/03/2025 at 12:14 Approved by: Bg Hall DO on 03/03/2025 at 12:19
--- OUTSIDE RECORDS SUMMARY | 2025-03-03 09:36 | XMS_ITS | CCD ---
Author Organization [facility] Care Team Providers Care Layout Technician Name Role Phone Unavailable Primary Care Provider UnavailISIS Hagan Referring Unavailable AICHHOLZ, CARMELA Lois Referring Unavailable AICHHOLZ, CARMELA J. Primary Care Unavailable Aichholloree, Carmela J. Primary Care Provider Lesly Snider Unavailable AICHHOLZ, CUSTOMER SUCCESS REPRESENTATIVE CARMELA Admitting Unavailable AICHHOLZ, CUSTOMER SUCCESS REPRESENTATIVE CARMELA Attending Unavailable AICHHOLZ, CUSTOMER SUCCESS REPRESENTATIVE CARMELA Primary Care Unavailable AICHHOLZ, CUSTOMER SUCCESS REPRESENTATIVE CARMELA Consulting Unavailable AICHHOLZ, CUSTOMER SUCCESS REPRESENTATIVE CARMELA Admitting Unavailable AICHHOLZ, CUSTOMER SUCCESS REPRESENTATIVE CARMELA Attending Unavailable AICHHOLZ, CUSTOMER SUCCESS REPRESENTATIVE CARMELA Primary Care Unavailable AICHHOLZ, CUSTOMER SUCCESS REPRESENTATIVE CARMELA Consulting Unavailable AICHHOLZ, CUSTOMER SUCCESS REPRESENTATIVE CARMELA Admitting Unavailable AICHHOLZ, CUSTOMER SUCCESS REPRESENTATIVE CARMELA Attending Unavailable AICHHOLZ, CUSTOMER SUCCESS REPRESENTATIVE CARMELA Primary Care Unavailable [place], DR WILLY Gonsales Consulting Unavailable AICHHOLZ, CUSTOMER SUCCESS REPRESENTATIVE CARMELA Consulting Unavailable AICHHOLZ, CUSTOMER SUCCESS REPRESENTATIVE CARMELA Admitting Unavailable AICHHOLZ, CUSTOMER SUCCESS REPRESENTATIVE CARMELA Attending Unavailable AICHHOLZ, CUSTOMER SUCCESS REPRESENTATIVE CARMELA Primary Care Unavailable AICHHOLZ, CUSTOMER SUCCESS REPRESENTATIVE CARMELA Consulting Unavailable AICHHOLZ, CUSTOMER SUCCESS REPRESENTATIVE CARMELA Admitting Unavailable AICHHOLZ, CUSTOMER SUCCESS REPRESENTATIVE CARMELA Attending Unavailable AICHHOLZ, CUSTOMER SUCCESS REPRESENTATIVE CARMELA Primary Care Unavailable AICHHOLZ, CUSTOMER SUCCESS REPRESENTATIVE CARMELA Consulting Unavailable DR RAMAKRISHNA PASCAL Consulting Unavailable KARASIK ., DR JOHNSON Admitting Unavailabl e KARASIK ., DR JOHNSON Attending Unavailabl e AICHHOLZ, CUSTOMER SUCCESS REPRESENTATIVE CARMELA Primary Care Unavailable KARASIK ., DR JOHNSON Consulting Unavailabl e REQUEST, NONE LISTED Admitting Unavaila ble REQUEST, DR HINDS LISTED Attending Unavaila ble AICHHOLZ, CUSTOMER SUCCESS REPRESENTATIVE CARMELA Primary Care Unavailable REQUEST, DR NONE LISTED Consulting Unavaila ble CAMPOS ., DR JOHNSON Admitting Unavailabl e KARASIK ., DR JOHNSON Attending Unavailabl e AICHHOLZ, CUSTOMER SUCCESS REPRESENTATIVE CARMELA Primary Care Unavailable KARASIK ., DR JOHNSON Consulting Unavailabl e ALEJANDRO MEJIA Consulting Unavailable Komal VASQUEZ, Chadwick Primary Care Provider [phone] [employer] INTERMODAL TRUCK DRIVER, Carmela Unavailable [employer] INTER[employer] TRUCK DRIVER, Carmela Unavailable Chadwick Sauceda MD Primary Care Provider [employer] INTER[employer]AL TRUCK DRIVER, Carmela Unavailable [employer] INTER[employer]AL TRUCK DRIVER, Carmela Unavailable Komal VASQUEZ, Chadwick Primary Care Provider AICHHOLZ, CARMELA Attending Unavailable AD CARMONA Attending Unavailable AICHHOLZ, CARMELA Referring Unavailable AD CARMONA Referring Unavailable AICHHOLZ, CARMELA Attending Unavailable AD CARMONA Attending Unavailable AICHHOLZ, CARMELA Attending Unavailable AICHHOLZ, CARMELA Attending Unavailable AICHHOLZ, CARMELA Attending Unavailable AICHHOLZ, CARMELA Attending Unavailable AICHHOLZ, CARMELA Attending Unavailable [employer] INTER[employer] DRIVER, Carmela Unavailable Allergies Allergy Classification Reported Allergen(s) Allergy Type Date of Onset Reaction(s) Facility (1 source) Latex Propensity to adverse reactions severe rash [facility] [employer] Other (18 sources) Sertraline Drug Allergy 05-03-20 Hallucinations [facility] [employer] Other (1 source) Acetaminophen / HYDROcodone Drug Allergy 12-28-19 13 [facility] (1 source) Latex Drug allergy (disorder) 12-28-19 13 [facility] (1 source) Sertraline Drug Allergy 12-28-19 13 [facility] (17 sources) Acetaminophen / HYDROcodone Drug Allergy 05-03-20 Hallucinations [facility] Healthcare (17 sources) Latex Propensity to adverse reactions 05-03-20 23 Rash [facility] Healthcare Medications Current Medications Medication Drug Class(es) Dates Sig (Normalized) Sig (Original) ARIPiprazole 20 mg oral tablet (20 sources) Atypical Antipsychotic Start: 10-07-2023 End: 11-08-2024 take 1 tablet by mouth once daily ARIPiprazole (Abilify) 20 MG tablet Indications: Bipolar disorder, unspecified (HCC) Take 1 tablet (20 mg) by mouth Daily 90 tablet 1 08/10/2024 Active take 1 tablet by mouth in the mo rning ARIPiprazole (Abilify) 20 MG tablet Take 20 mg by mouth in the morning. 0 Active Abilify Active cephalexin 500 mg oral capsule (5 sources) Cephalosporin Antibacterial Start: 08-10-2024 End: 08-20-2024 take 1 capsule by mouth in the morning cephalexin (Keflex) 500 MG capsule Indications: Sebaceous cyst of axilla Take 1 capsule (500 mg) by mouth in the morning and 1 capsule (500 mg) before bedtime. Do all this for 10 days. 20 capsule 08/10/2024 08/20/2024 Active cetirizine hydrochloride 10 mg oral tablet (20 sources) Histamine-1 Receptor Antagonist Start: 04-08-2024 End: 11-08-2024 take 1 tablet by mouth once daily cetirizine (ZyrTEC) 10 MG tablet Indications: Environmental and seasonal allergies Take 1 tablet (10 mg) by mouth Daily 90 tablet 1 08/10/2024 Active take 1 tablet by mouth once mat y cetirizine (ZyrTEC) 10 MG tablet Take 10 mg by mouth Daily Active take 5 mg by mouth in the mornin g cetirizine (ZyrTEC) 10 MG tablet Take 5 mg by mouth in the morning. 0 Active fluconazole 150 mg oral tablet (11 sources) Azole Antifungal Start: 12-16-2024 fluconazole ( Diflucan) 150 MG tablet Indications: Sebaceous cyst of axilla One time dose, may repeat in 3 days if needed 2 tablet 1 12/16/2024 Active Start: 08-10-2024 End: 12-16-2024 fluconazole (Diflucan) 150 M G tablet Indications: Sebaceous cyst of axilla One time dose, may repeat in 3 days if needed 2 tablet 08/10/2024 12/16/2024 Discontinued (Reorder) Start: 06-13-2023 fluconazole (D iflucan) 150 MG tablet Indications: Vaginal yeast infection Take 150mg dose, may repeat in 3 days 2 tablet 1 06/13/2023 Active fluvoxaMINE maleate 100 mg oral tablet (20 sources) Serotonin Reuptake Inhibitor Start: 10-07-2023 End: 11-08-2024 take 1.5 tablets by mouth in the morning fluvoxaMINE (Luvox) 100 MG tablet Indications: RINA (generalized anxiety disorder) , Obsessive-compulsive disorder, unspecified Take 1.5 tablets (150 mg) by mouth in the morning and 1.5 tablets (150 mg) before bedtime. 270 tablet 1 08/10/2024 Active Start: 05-31-2023 End: 08-29-2023 take 1.5 tablets by mouth in the morning fluvoxaMINE (Luvox) 100 MG tablet Indications: Obsessive-compulsive disorder, unspecified (CMS/HCC) , IRNA (generalized anxiety disorder) (CMS/HCC) Take 1.5 tablets (150 mg) by mouth in the morning and 1.5 tablets (150 mg) before bedtime. 270 tablet 1 05/31/2023 08/29/2023 Active fluvoxaMINE Male ate Active hydrocortisone 10 mg/ml / neomycin 3.5 mg/ml / polymyxin b 12058 unt/ml otic suspension (1 source) Aminoglycoside Antibacterial, Polymyxin-class Antibacterial, Corticosteroid Start: 09-22-2021 Osrebwvh-Xtcpgfttm-QR 3.5-06900-5 3 drops left ear Three times a day for 7 days Sep, Active hydrOXYzine pamoate 25 mg oral capsule (20 sources) Antihistamine Start: 04-08-2024 End: 11-08-2024 take 1 capsule by mouth once hydrOXYzine pamoate (Vistaril) 25 MG capsule Indications: RINA (generalized anxiety disorder) , Panic attack as reaction to stress , Obsessive-compulsive disorder, unspecified Take 1 capsule (25 mg) by mouth every 12 (twelve) hours if needed for itching or anxiety 180 capsule 1 08/10/2024 Active Start: 02-25-2024 End: 05-08-2024 take 0.5 tablet by mouth once hydrOXYzine HCl (Atarax) 25 MG tablet Indications: RINA (generalized anxiety disorder) (CMS/HCC) , Panic attack as reaction to stress (CMS/HCC) Take 0.5 tablets (12.5 mg) by mouth every 12 (twelve) hours if needed for anxiety or itching 60 tablet 1 04/08/2024 04/08/2024 Discontinued (Therapy completed) levothyroxine sodium 0.137 mg oral tablet (20 sources) l-Thyroxine Start: 07-30-2023 End: 11-08-2024 take 1 tablet by mouth once daily levothyroxine (Synthroid, Levoxyl) 137 MCG tablet Indications: Hypothyroidism, unspecified Take 137 mcg by mouth Daily 90 tablet 1 08/10/2024 Active take 1 capsule by mouth before m ealtime levothyroxine (Tirosint) 137 MCG capsule Take 137 mcg by mouth in the morning. Take before meals. 0 Active Levothyroxine So dium Active Melatonin (1 source) Melatonin Active temazepam 15 mg oral capsule (9 sources) Benzodiazepine End: 08-10-2024 temazepam (Restoril) 15 MG capsule Take 15 mg by mouth as needed at bedtime for sleep. 08/10/2024 Discontinued (Therapy completed) triamcinolone acetonide 1 mg/ml topical cream (7 sources) Corticosteroid Start: 12-16-2024 End: 12-30-2024 triamcinolone (Kenalog) 0.1 % cream Indications: Rash Apply topically in the morning and before bedtime. Do all this for 14 days. Apply to affected area 1-2 times daily as needed. Avoid face and groin. 45 g 12/16/2024 12/30/2024 Active End: 04-08-2024 triamcinolone (Kenalog) 0.1 % cream Apply 1 application topically in the morning and 1 application before bedtime. As needed. 04/08/2024 Discontinued (Therapy completed) Completed/Discontinued Medications Medication Drug Class(es) Dates Sig (Normalized) Sig (Original) methylPREDNISolone (5 sources) Corticosteroid Start: 08-19-2024 End: 09-01-2024 methylPREDNISolone (Medrol Dospak) 4 MG tablets Indications: Ganglion cyst of wrist, right Follow schedule on package instructions 21 tablet 08/19/2024 09/01/2024 Discontinued (Therapy completed) Start: 08-19-2024 methylPREDNISo lone (Medrol Dospak) 4 MG tablets Indications: Ganglion cyst of wrist, right Follow schedule on package instructions 21 tablet 08/19/2024 Active Problems Active Problems Problem Classification Problem Date Documented Da te Episodic/Chronic Allergic reactions (17 sources) Atopic dermatitis; Translations: [Intrinsic (allergic) eczema] Onset: 05-23-2023 05-23-2023 Chronic Anxiety disorders (20 sources) Generalized anxiety disorder; Translations: [Generalized anxiety disorder] Onset: 05-23-2023 05-23-2023 Chronic Mood disorders (20 sources) Bipolar disorder, unspecified; Translations: [Bipolar disorder, most recent episode depression] Onset: 03-08-2022 Resolved: 08-10-2024 08-16-2023 Chronic Other non-traumatic joint disorders (2 sources) Pain in wrist; Translations: [Pain in right wrist] 08-18-2024 Episodic Other nutritional; endocrine; and metabolic disorders (20 sources) Obesity caused by energy imbalance; Translations: [Morbid (severe) obesity due to excess calories] Onset: 11-25-2023 01-20-2024 Chronic Other nutritional; endocrine; and metabolic disorders (20 sources) Body mass index 40+ - severely obese; Translations: [Body mass index (BMI) 40.0-44.9, adult] Onset: 01-20-2024 01-20-2024 Chronic Other skin disorders (14 sources) Sebaceous cyst of skin; Translations: [Sebaceous cyst] Onset: 08-10-2024 08-10-2024 Episodic Other skin disorders (2 sources) Eruption; Translations: [Rash and other nonspecific skin eruption] Onset: 12-16-2024 12-16-2024 Episodic Other upper respiratory disease (18 sources) Allergic disposition; Translations: [Other allergic rhinitis] Onset: 04-08-2024 04-08-2024 Chronic Thyroid disorders (20 sources) Hypothyroidism, unspecified; Translations: [Hypothyroidism] Onset: 03-08-2022 Chronic Unclassified (1 source) CONTACT W/AND (SUSP) EXPOS COVID-19; Translations: [CONTACT W/AND (SUSP) EXPOS COVID-19] Onset: 03-04-2022 Past or Other Problems Problem Classification Problem Date Documented Da te Episodic/Chronic E Codes: Natural/environment (15 sources) Nonvenomous insect bite of multiple sites; Translations: [Bitten or stung by nonvenomous insect and other nonvenomous arthropods, initial encounter] Onset: 04-08-2024 Resolved: 08-10-2024 04-08-2024 Episodic Inflammatory diseases of female pelvic organs (5 sources) Abscess of vulva; Translations: [ABSCESS OF VULVA] Onset: 03-02-2022 Episodic Mood disorders (16 sources) Mood disorders Onset: 10-07-2023 10-07-2023 Other connective tissue disease (15 sources) Ganglion cyst of right wrist; Translations: [Ganglion, right wrist] Onset: 08-10-2024 08-10-2024 Episodic Other ear and sense organ disorders (1 source) Unspecified acute noninfective otitis externa, left ear Onset: 09-22-2021 Resolved: 09-22-2021 Episodic Other inflammatory condition of skin (15 sources) Generalized pruritus ; Translations: [Pruritus, unspecified] Onset: 04-08-2024 04-08-2024 Episodic Other screening for suspected conditions (not mental disorders or infectious disease) (20 sources) Other abnormal and inconclusive findings on diagnostic imaging of breast; Translations: [Encounter for screening mammogram for malignant neoplasm of breast] Onset: 12-14-2021 Episodic Other upper respiratory infections (1 source) Acute maxillary sinusitis; Translations: [Acute maxillary sinusitis, unspecified] Onset: 09-15-2024 09-15-2024 Episodic Residual codes; unclassified (1 source) Procedure and treatment not carried out for other reasons; Translations: [PROC AND TX NOT CARRIED OUT OTH REASONS] Onset: 03-08-2022 Episodic Results Test Name Value Interpretation Reference Range Facility XR Wrist - right 2 Viewson 0 08-19-2024 Imaging Result: AP and Lateral Right Wrist: Bone Structure: No acute fracture or dislocation Joint Spaces: The carpal joint spaces are well preserved, no joint space narrowing, Scapho-lunate interval within normal limit. Soft tissue: No swelling or calcification Impression: No acute bony process Right Wrist [facility] Radiology Study observation (narrative) [facility] FREE T4on 08-06-2022 Free T4 [Mass/Vol] 1.35 ng/dL Normal 0.76-1.46 [facility] Comment on above: Performed By: #### F T4 #### [facility] [address] [place] [address] Dr. Steve Oliveros TSHon 08-06-2022 TSH 0.319 uIU/mL Critically low 0.358-3.740 [facility] Comment on above: Performed By: #### T SH ####[facility] [id number] [place], [place] [address]EfDr. Steve Oliveros FREE T4on 05-29-2022 Free T4 [Mass/Vol] 1.15 ng/dL Normal 0.76-1.46 [facility] Comment on above: Performed By: #### F T4 #### [facility] [address] [place], [place] [address] Dr. Steve Oliveros TSHon 05-29-2022 TSH 5.149 uIU/mL Critically high 0.358-3.740 [facility] Comment on above: Performed By: #### T SH #### [facility] [address] [place], [place] [address] Dr. Steve Oliveros URon 03-02-2022 , QUAL Negative Normal NEGATIVE [facility] Comment on above: Performed By: #### P REGU #### [facility] [address] [place], [place] [address] Dr. Steve Oliveros Covid-19 PCR ([facility])on SARS-CoV-2 (COVID-19) RNA ZI+probe Ql (Unsp spec) Not detected Normal NOT DETECTED [facility] Comment on above: Result Comment: When diagnostic [...] for this test is supported by the [place] Adjuster of Health and Human Service's declaration that [...] be used). Performed By: #### C VDTBH ####[facility] [id number] [place], [place] [address]TdKirill Oliveros MG MAMM RT DIAG FUon 022 MG MAMM RT DIAG FU Patient: HENRIETTA GARCIA Exam Date: 12/27/2021 : 1980 Gender:F Ordering : KENYETTA RYDER YEYOEzEFRAINLoree [facility] Admission #: [id number] Family : Order #: [id number] CLICK HERE TO VIEW EXAM RADIOLOGY REPORT PROCEDURE: MAMMOGRAM RIGHT DIAGNOSTIC DIGITAL FOLLOW UP COMPARISON: MG MAMM SCREEN 3D OLI CAD, 12/18/2021. INDICATIONS: Abnormal findings on diagnostic imaging of breast Calculator Name NCI Breast Cancer Risk Assessment Tool 5 Year Breast Cancer Risk 0.80% Lifetime Breast Cancer Risk 10.80% Personal Breast Cancer No Personal Ovarian Cancer No Treatments None Family Cancers None LOCATION: [facility] BREAST COMPOSITION: Scattered areas fibroglandular density. FINDINGS: [...] M.D. on 12/27/2021 at 10:30 Normal [facility] MG MAMM SCREEN 3D OLI CADon 12-18-2021 MG MAMM SCREEN 3D OLI CAD Patient: HENRIETTA GARCIA Exam Date: 12/18/2021 : 1980 Gender:F Ordering : KENYETTA RYDER YEYOEzEFRAINLoree [facility] Admission #: [id number] Family : Order #: [id number] CLICK HERE TO VIEW EXAM RADIOLOGY REPORT PROCEDURE: MAMMOGRAM SCREENING 3D BILATERAL CAD COMPARISON: None. INDICATIONS: Screening Calculator Name NCI Breast Cancer Risk Assessment Tool 5 Year Breast Cancer Risk 0.80% Lifetime Breast Cancer Risk 10.80% Personal Breast Cancer No Personal Ovarian Cancer No Treatments None Family Cancers None LOCATION: [facility] BREAST COMPOSITION: Scattered areas fibroglandular density. [...] Soto MD on 12/18/2021 at 12:55 Normal [facility] PAP ACOG PANEL 2: 30 to 65on 12-17-2021 . . Normal [facility] Comment on above: Result Comment: Perf ormed at: WB Performed By: #### [id number] #### [facility] [address] [place] [address] [address] Steve Oliveros Age Gdln ACOG Testing 30-65 Normal [facility] Comment on above: Performed By: #### [id number] #### [facility] [address] [place] [address] [address] Steve Oliveros DIAGNOSIS: Comment Normal [facility] Comment on above: Result Comment: NEGA TIVE FOR INTRAEPITHELIAL LESION OR MALIGNANCY. Performed at: WB Performed By: #### [id number] #### [facility] [address] [place] [address] [address] Steve Oliveros HPV Aptima Negative Normal Negative [facility] Comment on above: Result Comment: This nucleic acid amplification test detects fourteen high-risk HPV types (16,18,31,33,35,39,45,51,52,56,58,59,66,68) without differentiation. Performed at: =G Performed By: #### [id number] #### [facility] [address] [place] [address] [address] Steve Oliveros Methodology: Comment Normal [facility] Comment on above: Result Comment: This liquid based ThinPrep(R) pap test was screened with the use of an image guided system. Performed at: WB Performed By: #### [id number] #### [facility] [address] [place] [address] Dr. Steve Oliveros Note: Comment Normal [facility] Comment on above: Result Comment: The Pap smear is a screening test designed to aid in the detection of premalignant and malignant conditions of the uterine cervix. It is not a diagnostic procedure and should not be used as the sole means of detecting cervical cancer. Both false-positive and false-negative reports do occur. . Performed at: WB Performed By: #### [id number] #### [facility] [address] [place] [address] Dr. Steve Oliveros Performed by: Comment Normal [facility] Comment on above: Result Comment: [employer] Advocate (ASCP) Performed at: WB Performed By: #### 4 [id number] #### [facility] [address] [place] [address] Dr. Steve Oliveros Specimen adequacy: Comment Normal [facility] Comment on above: Result Comment: Sati sfactory for evaluation. Endocervical and/or squamous metaplastic cells (endocervical component) are present. Performed at: WB Performed By: #### 4 [id number] #### [facility] [address] [place] [address] Dr. Steve Oliveros CBC AUTO DIFFon 11-28-2021 BASO # 0.0 103/ul Normal 0.0-0.1 [facility] Comment on above: Performed By: #### D ATCBC #### [facility] [address] [place] [address] Dr. Steve Oliveros Basophils/100 WBC (Bld) 0.6 % Normal 0.2-2.0 [facility] Comment on above: Performed By: #### D ATCBC #### [facility] [address] [place] [address] Dr. Steve Oliveros EO # 0.1 103/ul Normal 0.0-0.7 [facility] Comment on above: Performed By: #### D ATCBC #### [facility] [address] [place] [address] Dr. Steve Oliveros Eosinophils/100 WBC (Bld) 1.5 % Normal 0.9-7.0 [facility] Comment on above: Performed By: #### D ATCBC #### [facility] [address] [place] [address] Dr. Steve Oliveros Erythrocyte distribution width (RBC) [Ratio] 12.3 % Normal 11.0-15.0 [facility] Comment on above: Performed By: #### D ATCBC #### [facility] [address] [place] [address] Dr. Steve Oliveros Hematocrit (Bld) [Volume fraction] 42.5 % Normal 36.0-48.0 [facility] Comment on above: Performed By: #### D ATCBC #### [facility] [address] [place] [address] Dr. Steve Oliveros Hemoglobin (Bld) [Mass/Vol] 13.7 g/dL Normal 12.0-16.0 [facility] Comment on above: Performed By: #### D ATCBC #### [facility] [address] [place] [address] Dr. Steve Oliveros IG # 0.02 10e3/ul Normal 0.00-0.03 [facility] Comment on above: Performed By: #### D ATCBC #### [facility] [address] [place] [address] Dr. Steve Oliveros IG % 0.3 % Normal 0.0-0.5 [facility] Comment on above: Performed By: #### D ATCBC #### [facility] [address] [place] [address] Dr. Steve Oliveros LYMPH # 1.8 103/ul Normal 1.2-3.8 [facility] Comment on above: Performed By: #### D ATCBC #### [facility] [address] [place] [address] Dr. Steve Oliveros Lymphocytes/100 WBC (Bld) 24.4 % Normal 20.5-60.0 [facility] Comment on above: Performed By: #### D ATCBC #### [facility] [address] [place] [address] Dr. Steve Oliveros MCH (RBC) [Entitic mass] 28.1 pg Normal 26.7-34.0 [facility] Comment on above: Performed By: #### D ATCBC #### [facility] [address] [place] [address] Dr. Steve Oliveros MCHC (RBC) [Mass/Vol] 32.2 g/dL Normal 29.9-35.2 [facility] Comment on above: Performed By: #### D ATCBC #### [facility] [address] [place] [address] Dr. Steve Oliveros MCV (RBC) [Entitic vol] 87.3 fL Normal 81.0-99.0 [facility] Comment on above: Performed By: #### D ATCBC #### [facility] [address] [place] [address] Dr. Steve Oliveros MONO # 0.5 103/ul Normal 0.3-0.8 [facility] Comment on above: Performed By: #### D ATCBC #### [facility] [address] [place] [address] Dr. Steve Oliveros Monocytes/100 WBC (Bld) 6.6 % Normal 1.7-12.0 [facility] Comment on above: Performed By: #### D ATCBC #### [facility] [address] [place] [address] Dr. Steve Oliveros NEUT # 4.8 103/ul Normal 1.4-6.5 [facility] Comment on above: Performed By: #### D ATCBC #### [facility] [address] [place] [address] Dr. Steve Oliveros Neutrophils/100 WBC (Bld) 66.6 % Normal 43.0-75.0 [facility] Comment on above: Performed By: #### D ATCBC #### [facility] [address] [place] [address] Dr. Steve Oliveros Platelet mean volume (Bld) [Entitic vol] 9.1 fL Critically low 9.5-13.5 [facility] Comment on above: Performed By: #### D ATCBC #### [facility] [address] [place] [address] Dr. Steve Oliveros PLT 301 103/ul Normal 150-450 [facility] Comment on above: Performed By: #### D ATCBC #### [facility] [address] [place] [address] Dr. Steve Oliveros RBC 4.87 106/ul Normal 4.20-5.40 [facility] Comment on above: Performed By: #### D ATCBC #### [facility] [address] [place] [address] Dr. Steve Oliveros WBC 7.2 103/ul Normal 4.0-11.0 [facility] Comment on above: Performed By: #### D ATCBC #### [facility] [address] [place] [address] Dr. Steve Oliveros ALTAGRACIA - TSHon 11-28-2021 TSH 7.045 uIU/mL Critically high 0.358-3.740 [facility] Comment on above: Performed By: #### D ATTJOSE DATBMP #### [facility] [address] [place] [address] Dr. Steve Oliveros TSH RANGE SEE BELOW Normal [facility] Comment on above: Result Comment: <0.3 4 UIU/ml HYPERTHYROID 0.34-5.60 UIU/ml EUTHYROID >5.60 UIU/ml HYPOTHYROID Performed By: #### D ATTSH, DATBMP #### [facility] [address] [place] [address] Dr. Steve Oliveros ALTAGRACIA- BMP WITH LIPIDon 2021 Anion gap [Moles/Vol] 12.1 mmol/L Normal [facility] Comment on above: Performed By: #### D ATTSH, DATBMP #### [facility] [address] [place] [address] Dr. Steve Oliveros Calcium [Mass/Vol] 9.0 mg/dL Normal 8.5-10.1 [facility] Comment on above: Performed By: #### D ATTSH, DATBMP #### [facility] [address] [address] [address] Steve Oliveros Chloride [Moles/Vol] 105 mmol/L Normal 98-107 [facility] Comment on above: Performed By: #### D ATTSH, DATBMP #### [facility] [address] [address] [address] Steve Oliveros Cholesterol [Mass/Vol] 191 mg/dL Normal <=200 [facility] Comment on above: Performed By: #### D ATTSH, DATBMP #### [facility] [address] [address] [address] Steve Oliveros Cholesterol in HDL [Mass/Vol] 33 mg/dL Critically low 40-60 [facility] Comment on above: Performed By: #### D ATTSH, DATBMP #### [facility] [address] [address] [address] Steve Oliveros Cholesterol in LDL [Mass/Vol] 117.0 mg/dL Normal [facility] Comment on above: Performed By: #### D ATTSH, DATBMP #### [facility] [address] [address] [address] Steve Oliveros CO2 [Moles/Vol] 25.1 mmol/L Normal 21.0-32.0 [facility] Comment on above: Performed By: #### D ATTSH, DATBMP #### [facility] [address] [address] [address] Steve Oliveros Creatinine [Mass/Vol] 0.93 mg/dL Normal 0.55-1.02 [facility] Comment on above: Performed By: #### D ATTSH, DATBMP #### [facility] [address] [address] [address] Steve Oliveros EGFR-AF AUSTRALIAN >60 Normal >=60 [facility] Comment on above: Performed By: #### D ATTSH, DATBMP #### [facility] [address] [address] [address] Steve Oliveros EGFR-NON AF AUSTRALIAN >60 Normal >=60 [facility] Comment on above: Performed By: #### D ATTSH, DATBMP #### [facility] [address] [address] [address] Steve Oliveros Glucose [Mass/Vol] 91 mg/dL Normal 74-106 [facility] Comment on above: Performed By: #### D ATTSH, DATBMP #### [facility] [address] [address] [address] Steve Oliveros HDL NORMAL > or = 60 mg/dl - LO W CARDIOVASCULAR RISK <40 mg/dl - HIGH CARDIOVASCULAR RISK Normal [facility] Comment on above: Performed By: #### D ATTSH, DATBMP #### [facility] [address] [address] [address] Steve Oliveros LDL CALC NORMAL SEE BELOW Normal [facility] Comment on above: Result Comment: <100 mg/dl OPTIMAL 100 - 129 mg/dl NEAR OR ABOVE OPTIMAL 130 - 159 mg/dl BORDERLINE HIGH 160 - 189 mg/dl HIGH >190 mg/dl VERY HIGH Performed By: #### D ATTSH, DATBMP #### [facility] [address] [address] [address] Steve Oliveros Potassium [Moles/Vol] 4.2 mmol/L Normal 3.5-5.1 [facility] Comment on above: Performed By: #### D ATTSH, DATBMP #### [facility] [address] [address] [address] Steve Oliveros Sodium [Moles/Vol] 138 mmol/L Normal 136-145 [facility] Comment on above: Performed By: #### D ATTSH, DATBMP #### [facility] [address] [address] [address] Steve Oliveros Triglyceride [Mass/Vol] 205 mg/dL Critically high <=150 [facility] Comment on above: Performed By: #### D ATTSH, DATBMP #### [facility] [address] [address] [address] Steve Oliveros Urea nitrogen [Mass/Vol] 10.0 mg/dL Normal 7.0-18.0 [facility] Comment on above: Performed By: #### D ATTSH, DATBMP #### [facility] [address] [address] [address] Steve Oliveros Urea nitrogen/Creatinine [Mass ratio] 10.8 mg/mg Normal [facility] Comment on above: Performed By: #### D ATTSH, DATBMP #### [facility] [id number] Steve Oliveros VLDL CALC 41.0 mg/dL Normal [facility] Comment on above: Performed By: #### D ATTSH, DATBMP #### [facility] [phone] Steve Oliveros CBC Auto Differentialon 07-25 Basophils (Bld) [#/Vol] 0.07 10*3/uL [employer] Phone: Basophils/100 WBC (Bld) 1 % 0 - 2 % [employer]: Differential Type NOT REPORTED [employer]: Eosinophils (Bld) [#/Vol] 0.22 10*3/uL [employer] Phone: Eosinophils/100 WBC (Bld) 2 % 1 - 4 % [employer] Phone: Erythrocyte distribution width (RBC) [Ratio] 13.0 % 11.8 - 14.4 % [employer] Phone: Hematocrit (Bld) [Volume fraction] 43.3 % 36.3 - 47.1 % [employer] Phone: Hemoglobin (Bld) [Mass/Vol] 13.6 g/dL 11.9 - 15.1 g/dL [employer] Phone: Immature granulocytes (Bld) [#/Vol] 0.05 10*3/uL [employer] Phone: Immature granulocytes (Bld) [#/Vol] 0 % 0 [employer] Phone: Interpretation and review of laboratory results Abnormal [employer] Phone: Lymphocytes (Bld) [#/Vol] 2.56 10*3/uL [employer] Phone: Lymphocytes/100 WBC (Bld) 23 % Low 24 - 43 % [employer] Phone: MCH (RBC) [Entitic mass] 27.0 pg 25.2 - 33.5 pg [employer] Phone: MCHC (RBC) [Mass/Vol] 31.4 g/dL 28.4 - 34.8 g/dL [employer] Phone: MCV (RBC) [Entitic vol] 86.1 fL 82.6 - 102.9 fL [employer] Phone: Monocytes (Bld) [#/Vol] 1.01 10*3/uL [employer] Phone: Monocytes/100 WBC (Bld) 9 % 3 - 12 % [employer] Phone: Platelet mean volume (Bld) [Entitic vol] 9.5 fL 8.1 - 13.5 fL [employer] Phone: Platelets (Bld) [#/Vol] NOT REPORTED [employer] Phone: Platelets (Bld) [#/Vol] 300 10*3/uL [employer] Phone: RBC (Bld) [#/Vol] 5.03 10*6/uL 3.95 - 5.1 1 m/uL [employer] Phone: RBC morphology finding Nom (Bld) NOT REPORTED [employer] Phone: Segmented neutrophils/100 WBC (Bld) 65 % 36 - 65 % [employer] Phone: Segs Absolute 7.39 [employer] Work Phone: WBC (Bld) [#/Vol] 11.3 10*3/uL [facility] Work Phone: WBC (Bld) [#/Vol] 0.0 10*3/uL 0.0 per 10 0 WBC [facility] Work Phone: WBC Morphology NOT REPORTED [facility] Work Phone: CBC with Diffon 08-12-2020 Abs. Basophil 0.07 k/uL Normal 0.00-0.20 [facility] Comment on above: Performed By: #### C DP, CP, TSH #### [facility] [address] [place] [address] Dr. [address] [place] [phone] Sheet [employer]: Willy Jasmine MD #### FT4, LIPR #### [address] [phone] Sheet [employer]: Tr Bullard MD Abs.Imm.Granulocyte 0.05 k/uL Normal 0.00-0.30 [facility] Comment on above: Performed By: #### C DP, CP, TSH #### [address] [place] [phone] Sheet [employer]: Willy Jasmine MD #### FT4, LIPR #### [address] [phone] Sheet [employer]: Tr Bullard MD Abs.Neutrophil (Seg) 7.39 k/uL Normal 1.50-8.10 [facility] Comment on above: Performed By: #### C DP, CP, TSH #### [address] [place] [address] Sheet [employer]: Willy Jasmine MD #### FT4, LIPR #### [address] [id number] Sheet [employer]: Tr Bullard MD Basophils/100 WBC (Bld) 1 % Normal 0-2 [facility] Comment on above: Performed By: #### C DP, CP, TSH #### [facility] [address] [place] [address] Sheet [employer]: Willy Jasmine MD #### FT4, LIPR #### [address] [phone] Sheet [employer]: Tr Bullard MD Eosinophils (Bld) [#/Vol] 0.22 10*3/uL Normal 0.00-0.44 [facility] Comment on above: Performed By: #### C DP, CP, TSH #### [facility] [address] [place] [phone] Sheet [employer]: Willy Jasmine MD #### FT4, LIPR #### [address] [phone] Sheet [employer]: Tr Bullard MD Eosinophils/100 WBC (Bld) 2 % Normal 1-4 [facility] Comment on above: Performed By: #### C DP, CP, TSH #### [facility] [address] [place] [phone] Sheet [employer]: Willy Jasmine MD #### FT4, LIPR #### [address] [phone] Sheet [employer]: Tr Bullard MD Erythrocyte distribution width (RBC) [Ratio] 13.0 % Normal 11.8-14.4 [facility] Comment on above: Performed By: #### C DP, CP, TSH #### [facility] [address] [place] [address] Sheet [employer]: Willy Jasmine MD #### FT4, LIPR #### [address] [phone] Sheet [employer]: Tr Bullard MD Hematocrit (Bld) [Volume fraction] 43.3 % Normal 36.3-47.1 [facility] Comment on above: Performed By: #### C DP, CP, TSH #### [facility] [address] [place] [address] Dr. [address] [phone] Sheet [employer]: Willy Jasmine MD #### FT4, LIPR #### [address] [phone] Sheet [employer]: Tr Bullard MD Hemoglobin (Bld) [Mass/Vol] 13.6 g/dL Normal 11.9-15.1 [facility] Comment on above: Performed By: #### C DP, CP, TSH #### [address] [place] [phone] Sheet [employer]: Willy Jasmine MD #### FT4, LIPR #### [address] [phone] Sheet [employer]: Tr Bullard MD Immature granulocytes (Bld) [#/Vol] 0 % Normal 0 [facility] Comment on above: Performed By: #### C DP, CP, TSH #### [address] [place] [phone] Sheet [employer]: Willy Jasmine MD #### FT4, LIPR #### [address] [phone] Sheet [employer]: Tr Bullard MD Lymphocytes (Bld) [#/Vol] 2.56 10*3/uL Normal 1.10-3.70 [facility] Comment on above: Performed By: #### C DP, CP, TSH #### [address] [place] [phone] Sheet [employer]: Willy Jasmine MD #### FT4, LIPR #### [address] [phone] Sheet [employer]: Tr Bullard MD Lymphocytes/100 WBC (Bld) 23 % Low 24-43 [facility] Comment on above: Performed By: #### C DP, CP, TSH #### [facility] [address] [place] [address] Sheet [employer]: Willy Jasmine MD #### FT4, LIPR #### [address] [id number] Sheet [employer]: Tr Bullard MD MCH (RBC) [Entitic mass] 27.0 pg Normal 25.2-33.5 [facility] Comment on above: Performed By: #### C DP, CP, TSH #### [address] [place] [phone] Sheet [employer]: Willy Jasmine MD #### FT4, LIPR #### [address] [phone] Sheet [employer]aper: Tr Bullard MD MCHC (RBC) [Mass/Vol] 31.4 g/dL Normal 28.4-34.8 [facility] Comment on above: Performed By: #### C DP, CP, TSH #### [address] [place] [address] Sheet [employer] Taper: Willy Jasmine MD #### FT4, LIPR #### [address] [phone] Sheet [employer]aper: Tr Bullard MD MCV (RBC) [Entitic vol] 86.1 fL Normal 82.6-102.9 [facility] Comment on above: Performed By: #### C DP, CP, TSH #### [address] [place] [address] Sheet [employer]: Willy Jasmine MD #### FT4, LIPR #### [address] [phone] Sheet [employer]aper: Tr Bullard MD Monocytes (Bld) [#/Vol] 1.01 10*3/uL Normal 0.10-1.20 [facility] Comment on above: Performed By: #### C DP, CP, TSH #### [facility] [address] [place] [phone] Sheet [employer]: Willy Jsamine MD #### FT4, LIPR #### [address] [phone] Sheet [employer]aper: Tr Bullard MD Monocytes/100 WBC (Bld) 9 % Normal 3-12 [facility] Comment on above: Performed By: #### C VILMA, CP, TSH #### [address] [place] [phone] ( Sheet [employer]: Willy Jasmine MD #### FT4, LIPR #### [place] [address] Sheet [employer] Taper: Tr Bullard MD Neutrophil (Seg) 65 % Normal 36-65 [facility] Comment on above: Performed By: #### C VILMA, CP, TSH #### [address] [place] [phone] Sheet [employer]: Willy Jasmine MD #### FT4, LIPR #### [address] [address] Sheet [employer] Taper: Tr Bullard MD NRBC Automated 0.0 per 100 WBC Normal 0.0 [facility] Comment on above: Performed By: #### C DP, CP, TSH #### [address] [place], [facility]83 Sheet [employer]: Willy Jasmine MD #### FT4, LIPR #### [address] [address] Sheet [employer] Taper: Tr Bullard MD Platelet mean volume (Bld) [Entitic vol] 9.5 fL Normal 8.1-13.5 [facility] Comment on above: Performed By: #### C DP, CP, TSH #### [address] [place], [place] 1960983 Sheet [employer]: Willy Jasmine MD #### FT4, LIPR #### [address] [address] Sheet [employer] Taper: Tr Bullard MD Platelets (Bld) [#/Vol] 300 10*3/uL Normal 138-453 [facility] Comment on above: Performed By: #### C DP, CP, TSH #### [address] [place] [phone] Sheet [employer]: Willy Jasmine MD #### FT4, LIPR #### [address] [address] Sheet [employer] Taper: Tr Bullard MD RBC (Bld) [#/Vol] 5.03 10*6/uL Normal 3.95-5.11 [facility] Comment on above: Performed By: #### C DP, CP, TSH #### [address] [place], [place] [phone] Sheet [employer]: Willy Jasmine MD #### FT4, LIPR #### [address] [address] Sheet [employer] Taper: Tr Bullard MD WBC (Bld) [#/Vol] 11.3 10*3/uL Normal 3.5-11.3 [facility] Comment on above: Performed By: #### C DP, CP, TSH #### [address] [place], [place] [phone] Sheet [employer]: Willy Jasmine MD #### FT4, LIPR #### [address] [address] Sheet [employer] Taper: Tr Bullard MD Auto Diff Performed NOT REPORTED Normal [facility] Comment on above: Performed By: #### C DP, CP, TSH #### [facility] [address] [place] [address] [place] [address] Sheet [employer]: Willy Jasmine MD #### FT4, LIPR #### [address] [address] Sheet [employer] Taper: Tr Bullard MD Platelets (Bld) [#/Vol] NOT REPORTED Normal [facility] Comment on above: Performed By: #### C DP, CP, TSH #### [address] [place], [place] [phone] Sheet [employer]: Willy Jasmine MD #### FT4, LIPR #### [address] [address] Sheet [employer] Taper: Tr Bullard MD RBC morphology finding Nom (Bld) NOT REPORTED Normal [facility] Comment on above: Performed By: #### C DP, CP, TSH #### [address] [place], [place] [phone] Sheet [employer]: Willy Jasmine MD #### FT4, LIPR #### [address] [address] Sheet [employer] Taper: Tr Bullard MD WBC Morphology NOT REPORTED Normal [facility] Comment on above: Performed By: #### C DP, CP, TSH #### [facility] [address] [place] [address] [place] [address] Sheet [employer]: Willy Jasmine MD #### FT4, LIPR #### [address] [address] Sheet [employer] Taper: Tr Bullard MD Comp Metabolic Profon 2020 (cont.) Normal [facility] Comment on above: Result Comment: Aver age GFR for 40-49 years old: 99 mL/min/1.73sq m Chronic Kidney Disease: <60 mL/min/1.73sq m Kidney failure: <15 mL/min/1.73sq m eGFR calculated using average adult body mass. Additional eGFR calculator available at: http://[email or web address].Do.bizHive/multiple_crcl_2012.htm Performed By: #### C DP, CP, TSH #### [address] [place] [address] Sheet [employer]: Willy Jasmine MD #### FT4, LIPR #### [address]89[address] [place], [place] [phone] Sheet [employer]aper: Tr Bullard MD Albumin [Mass/Vol] 3.8 g/dL Normal 3.5-5.2 [facility] Comment on above: Performed By: #### C DP, CP, TSH #### [address] [place] [place] [address] Sheet [employer] Taper: Willy Jasmine MD #### FT4, LIPR #### [address] [phone] Sheet [employer]aper: Tr Bullard MD Albumin/Globulin [Mass ratio] 1.0 {ratio} Normal 1.0-2.5 [facility] Comment on above: Performed By: #### C DP, CP, TSH #### [address] [place] [address] Sheet [employer]aper: Willy Jasmine MD #### FT4, LIPR #### [address] [place], [place] [phone] Sheet [employer]aper: Tr Bullard MD Alkaline Phos 128 U/L High 35-104 [facility] Comment on above: Performed By: #### C DP, CP, TSH #### [address] [place] [place] [address] Sheet [employer] Taper: Willy Jasmine MD #### FT4, LIPR #### [address] 278982 [place] [address] Sheet [employer] Taper: Tr Bullard MD ALT [Catalytic activity/Vol] 19 U/L Normal 5-33 [facility] Comment on above: Performed By: #### C DP, CP, TSH #### [facility] [address] [place], [place] [phone] Sheet [employer]aper: Willy Jasmine MD #### FT4, LIPR #### [address] [address] Sheet [employer] Taper: Tr Bullard MD Anion gap [Moles/Vol] 9 mmol/L Normal 9-17 [facility] Comment on above: Performed By: #### C DP, CP, TSH #### [facility] [address] [place], [place] 2603883 Sheet [employer]: Willy Jasmine MD #### FT4, LIPR #### [address] [address] Sheet Rock Taper: Tr Bullard MD AST [Catalytic activity/Vol] 16 U/L Normal <32 [facility] Comment on above: Performed By: #### C DP, CP, TSH #### [facility] [address] [place], [place] [phone] Sheet [employer]: Willy Jasmine MD #### FT4, LIPR #### [address] [address] Sheet [employer] Taper: Tr Bullard MD Bilirubin Ql (U) 0.37 mg/dL Normal 0.3-1.2 [facility] Comment on above: Performed By: #### C DP, CP, TSH #### [facility] [address] [place], [place] [phone] Sheet [employer]: Willy Jasmine MD #### FT4, LIPR #### [address] [place] [address] Sheet Rock Taper: Tr Bullard MD BUN/CRE Ratio 15 Normal 9-20 [facility] Comment on above: Performed By: #### C DP, CP, TSH #### [facility] [address] [place], [place] 2969083 Sheet [employer]: Willy Jasmine MD #### FT4, LIPR #### [address] [address] Sheet [employer] Taper: Tr Bullard MD Calcium [Mass/Vol] 9.5 mg/dL Normal 8.6-10.4 [facility] Comment on above: Performed By: #### C DP, CP, TSH #### [facility] [address] [place], [place] [phone] Sheet [employer] Taper: Willy Jasmine MD #### FT4, LIPR #### [address] [address] Sheet Rock Taper: Tr Bullard MD Chloride [Moles/Vol] 102 mmol/L Normal 98-107 [facility] Comment on above: Performed By: #### C DP, CP, TSH #### [facility] [address] [place], [place] 2237783 Sheet [employer]: Willy Jasmine MD #### FT4, LIPR #### [address] [address] Sheet Rock Taper: Tr Bullard MD CO2 [Moles/Vol] 21 mmol/L Normal 20-31 [facility] Comment on above: Performed By: #### C DP, CP, TSH #### [facility] [address] [place], [place] [phone] Sheet [employer]aper: Willy Jasmine MD #### FT4, LIPR #### [address] [phone] Sheet [employer] Taper: Tr Bullard MD Creatinine [Mass/Vol] 0.73 mg/dL Normal 0.50-0.90 [facility] Comment on above: Performed By: #### C DP, CP, TSH #### [facility] [address] [place], [place] 5771183 Sheet [employer]: Willy Jasmine MD #### FT4, LIPR #### [address] [phone] Sheet [employer] Taper: Tr Bullard MD GFR, Amer >60 Normal >60 [facility] Comment on above: Performed By: #### C DP, CP, TSH #### [address] [place], [place] [phone] Sheet [employer] Taper: Willy Jasmine MD #### FT4, LIPR #### [address] 4000308 Sheet [employer] Taper: Tr Bullard MD GFR,non Amer >60 Normal >60 [facility] Comment on above: Performed By: #### C DP, CP, TSH #### [address] [place], [place] 4355683 Sheet [employer] Taper: Willy Jasmine MD #### FT4, LIPR #### [address] [address] Sheet Rock Taper: Tr Bullard MD Glucose [Mass/Vol] 99 mg/dL Normal 70-99 [facility] Comment on above: Performed By: #### C DP, CP, TSH #### [address] [place], [place] 9863683 Sheet [employer] Taper: Willy Jasmine MD #### FT4, LIPR #### [address] [address] Sheet Rock Taper: Tr Bullard MD Potassium [Moles/Vol] 3.9 mmol/L Normal 3.7-5.3 [facility] Comment on above: Performed By: #### C DP, CP, TSH #### [address] [place] [address] Sheet Rock Taper: Willy Jasmine MD #### FT4, LIPR #### [address] [phone] Sheet [employer] Taper: Tr Bullard MD Protein [Mass/Vol] 7.6 g/dL Normal 6.4-8.3 [facility] Comment on above: Performed By: #### C VILMA, CP, TSH #### [address] [place] [address] Sheet Rock Taper: Willy Jasmine MD #### FT4, LIPR #### [address] [phone] Sheet [employer] Taper: Tr Bullard MD Sodium [Moles/Vol] 132 mmol/L Low 135-144 [facility] Comment on above: Performed By: #### C VILMA, RYAN, TSH #### [address] [place] [address] Sheet Rock Taper: Willy Jasmine MD #### FT4, LIPR #### [address] [phone] Sheet Rock Taper: Tr Bullard MD Staging: Normal [facility] Comment on above: Result Comment: Stag e 1: Some kidney damage normal GFR Stage 2: Mild kidney damage GFR 60-89 Stage 3: Moderate kidney damage GFR 30-59 Stage 4: Severe kidney damage GFR 15-29 Stage 5: Severe kidney damage GFR <15 ESRD - chronic treatment by dialysis or transplant Performed By: #### C DP, CP, TSH #### [address] [place] [address] Sheet Rock Taper: Willy Jasmine MD #### FT4, LIPR #### [facility] [address] [place], [place] 3950008 Sheet Rock Taper: Tr Bullard MD Urea nitrogen [Mass/Vol] 11 mg/dL Normal 6-20 [facility] Comment on above: Performed By: #### C DP, CP, TSH #### [facility] [address] [place] [address] Sheet Rock Taper: Willy Jasmine MD #### FT4, LIPR #### [facility] [address] [place] [address] Sheet Rock Taper: Tr Bullard MD Comprehensive Metabolic Pane rosalinda 08-12-2020 Albumin [Mass/Vol] 3.8 g/dL 3.5 - 5.2 g/dL [facility] [employer] Work Phone: Albumin/Globulin [Mass ratio] 1.0 {ratio} [facility] [employer] Phone: ALP [Catalytic activity/Vol] 128 U/L High 35 - 104 U/L [facility] [employer] Phone: ALT [Catalytic activity/Vol] 19 U/L 5 - 33 U/L [facility] [employer] Phone: Anion gap [Moles/Vol] 9 mmol/L 9 - 17 mmol/L [facility] [employer] Phone: AST [Catalytic activity/Vol] 16 U/L <32 [facility] [employer] Phone: Bilirubin Ql (U) 0.37 mg/dL 0.3 - 1.2 mg/dL [facility] [employer] Phone: Bun/Cre Ratio 15 [facility] Work Phone: Calcium [Mass/Vol] 9.5 mg/dL 8.6 - 10. 4 mg/dL [facility] [employer] Phone: Chloride [Moles/Vol] 102 mmol/L 98 - 107 mmol/L [facility] [employer] Phone: CO2 [Moles/Vol] 21 mmol/L 20 - 31 mmol/L [facility] Phone: Creatinine [Mass/Vol] 0.73 mg/dL 0.5 - 0.9 mg/dL [facility] [employer] Phone: GFR >60 >60 mL/min [facility] [employer] Phone: GFR Non- >60 >60 mL/min [facility] [employer] Phone: Glucose [Mass/Vol] 99 mg/dL 70 - 99 mg/dL [facility] [employer] Phone: Potassium [Moles/Vol] 3.9 mmol/L 3.7 - 5.3 mmol/L [facility] [employer] Phone: Protein [Mass/Vol] 7.6 g/dL 6.4 - 8.3 g/dL [facility] [employer] Work Phone: Sodium [Moles/Vol] 132 mmol/L Low 135 - 144 mmol/L [facility] [employer] Phone: Urea nitrogen [Mass/Vol] 11 mg/dL 6 - 20 mg/dL [facility] Phone: Lipid Panelon 08-12-2020 Cholesterol [Mass/Vol] 167 mg/dL <200 [facility] Phone: Comment on above: Cholesterol Guidelines: <200 Desirable 200-240 Borderline >240 Undesirable Cholesterol in HDL [Mass/Vol] 34 mg/dL Low >40 [facility] Phone: Comment on above: HDL Guidelines: <40 Undesirable 40-59 Borderline >59 Desirable Cholesterol in LDL [Mass/Vol] 103 mg/dL 0 - 130 mg/dL [facility] Phone: Comment on above: LDL Guidelines: <100 Desirable 100-129 Near to/above Desirable 130-159 Borderline >159 Undesirable Direct (measured) LDL and calculated LDL are not interchangeable tests. Cholesterol in VLDL [Mass/Vol] NOT REPORTED 1 - 30 mg/dL [employer] Phone: Cholesterol.total/C holesterol in HDL [Mass ratio] 4.9 {ratio} <5 [facility] Work Phone: Interpretation and review of laboratory results Abnormal [facility] Work Phone: Triglyceride [Mass/Vol] 148 mg/dL <150 [facility] Work Phone: Comment on above: Triglyceride Guidelines: <150 Desirable 150-199 Borderline 200-499 High >499 Very high Based on AHA Guidelines for fasting triglyceride, March 2012. Lipid Profileon 08-12-2020 Cholesterol [Mass/Vol] 167 mg/dL Normal <200 [facility] Comment on above: Result Comment: Cholesterol Guidelines: <200 Desirable 200-240 Borderline >240 Undesirable Performed By: #### C DP, CP, TSH #### [facility] [address] [place] [address] Dr. [place] [phone] Sheet Rock Taper: Willy Jasmine MD #### FTAndie, LIPR #### [address] [phone] Sheet [place] Taper: Tr Bullard MD Cholesterol in HDL [Mass/Vol] 34 mg/dL Low >40 [facility] Comment on above: Result Comment: HDL Guidelines: <40 Undesirable 40-59 Borderline >59 Desirable Performed By: #### C DP, CP, TSH #### [address] [place] [phone] Sheet [place] Taper: Willy Jasmine MD #### FT4, LIPR #### [address] [phone] Sheet [place] Taper: Tr Bullard MD Cholesterol in LDL [Mass/Vol] 103 mg/dL Normal 0-130 [facility] Comment on above: Result Comment: LDL Guidelines: <100 Desirable 100-129 Near to/above Desirable 130-159 Borderline >159 Undesirable Direct (measured) LDL and calculated LDL are not interchangeable tests. Performed By: #### C DP, CP, TSH #### [facility] [address] [place] [address] Dr. [place], [place] [phone] Sheet Rock Taper: Willy Jasmine MD #### FT4, LIPR #### [place] [id number] [place] [address] Sheet Rock Taper: Tr Bullard MD Cholesterol.total/C holesterol in HDL [Mass ratio] 4.9 {ratio} Normal <5 [facility] Comment on above: Performed By: #### C DP, CP, TSH #### [address] [place], [place] [phone] Sheet [place] Taper: Willy Jasmine MD #### FT4, LIPR #### [address] [address] Sheet [place] Taper: Tr Bullard MD Triglyceride [Mass/Vol] 148 mg/dL Normal <150 [facility] Comment on above: Result Comment: Triglyceride Guidelines: <150 Desirable 150-199 Borderline 200-499 High >499 Very high Based on AHA Guidelines for fasting triglyceride, March 2012. Performed By: #### C DP, CP, TSH #### [address] Houser [place] [phone] Sheet [place] Taper: Willy Jasmine MD #### FT4, LIPR #### [address] [address] Sheet [place] Taper: Tr Bullard MD Cholesterol in VLDL [Mass/Vol] NOT REPORTED Normal 30 [facility] Comment on above: Performed By: #### C DP, CP, TSH #### [address] [place], [place] [phone] Sheet [place] Taper: Willy Jasmine MD #### FT4, LIPR #### [place] [id number] [place] [address] Sheet [place] Taper: Tr Bullard MD Metabolic Panelon 08-12-2020 GFR/1.73 sq M predicted among non-blacks MDRD (S/P/Bld) [Vol rate/Area] [facility] Phone: Comment on above: Average GFR for 40-4 9 years old: 99 mL/min/1.73sq m Chronic Kidney Disease: <60 mL/min/1.73sq m Kidney failure: <15 mL/min/1.73sq m eGFR calculated using average adult body mass. Additional eGFR calculator available at: http://www.Web Wonks/multiple_crcl_2012.htm Stage 1: Some kidney damage normal GFR Stage 2: Mild kidney damage GFR 60-89 Stage 3: Moderate kidney damage GFR 30-59 Stage 4: Severe kidney damage GFR 15-29 Stage 5: Severe kidney damage GFR <15 ESRD - chronic treatment by dialysis or transplant Otheron 08-12-2020 Interpretation and review of laboratory results Abnormal [employer] [facility] [employer] Phone: T4, Freeon 08-12-2020 Thyroxine, Free 1.69 ng/dL 0.93 - 1.7 ng/dL [facility] Phone: TSH without Reflexon 021 TSH Qn 0.28 m[IU]/L Low [facility] [employer] Phone: Thyroid Stim. Horm.on 2020 TSH Qn 0.28 m[IU]/L Low 0.30-5.00 [facility] Comment on above: Performed By: #### C DP, CP, TSH #### [facility] [address] [place] [address] Sheet Rock Taper: Willy Jasmine MD #### FT4, LIPR #### [facility] [address] [place] [address] Sheet Rock Taper: Tr Bullard MD Thyroxine, Freeon 08-12-2020 Thyroxine, Free 1.69 ng/dL Normal 0.93-1.70 [facility] Comment on above: Performed By: #### C DP, CP, TSH #### [facility] [address] [place] [address] [place] [address] Sheet Rock Taper: Willy Jasmine MD #### FT4, LIPR #### [facility] [address] [place] [address] [phone] Sheet Rock Taper: Tr Bullard MD Measles (Rubeola) Imon 04-27 Measles (Rubeola) Im 3.86 Normal >1.09 [facility] Comment on above: Result Comment: Interpretation: IMMUNE Reference Range: <0.91 Not Immune 0.91-1.09 Equivocal >1.09 Immune Performed By: #### M EI, JEREMY, AHBS, VZI, DAVIDSON #### [facility] [address] [place] [address] [id number] Sheet Rock Taper: Tr Bullard MD Mumps,Immun,Abon 04-27-2020 Mumps,Immun,Ab 4.77 Normal >1.09 [facility] Comment on above: Result Comment: Interpretation: IMMUNE Reference Range: <0.91 Not Immune 0.91-1.09 Equivocal >1.09 Immune Performed By: #### M EI, JEREMY, AHBS, VZI, DAVIDSON #### [facility] [address] [place] [address] [phone] Sheet [place] Taper: Tr Bullard MD VZ Immunityon 04-27-2020 VZ Immunity 2.29 Normal >1.09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 TN BREAST REDUCTION REDUCTION MAMMOPLASTY TONSILLECTOMY family history is not on file. She was adopted. OBJECTIVE: Visit Vitals BP 120/76 (BP Location: Left arm, Patient Position: Sitting, BP Cuff Size: Large adult) Pulse 72 Temp 98.5 F (Temporal) Resp 18 Wt 225 lb 3.2 oz SpO2 97% BMI 39.89 kg/m Smoking Status Never BSA 2.13 m Physical Exam Vitals and nursing note reviewed. Constitutional: General: She is not in acute distress. Appearance: Normal appearance. HENT: Head: Normocephalic and atraumatic. Right Ear: External ear normal. Left Ear: External ear normal. Nose: Nose normal. Mouth/Throat: Mouth: Mucous membranes are moist. Eyes: Extraocular Movements: Extraocular movements intact. Conjunctiva/sclera: Conjunctivae normal. Cardiovascular: Rate and Rhythm: Normal rate and regular rhythm. Pulses: Normal pulses. Heart sounds: Normal heart sounds. Pulmonary: Effort: Pulmonary effort is normal. Breath sounds: Normal breath sounds. Musculoskeletal: General: Normal range of motion. Cervical back: Normal range of motion and neck supple. Skin: General: Skin is warm and dry. Capillary Refill: Capillary refill takes 2 to 3 seconds. Findings: No rash. Comments: Abscess to right axillary region nearly completely resolved, no tenderness Measures approx 2mm no surrounding induration or erythema Neurological: General: No focal deficit present. Mental Status: She is alert and oriented to person, place, and time. Psychiatric: Mood and Affect: Mood normal. Behavior: Behavior normal. Thought Content: Thought content normal. Judgment: Judgment normal. ASSESSMENT AND PLAN: No follow-ups on file. Problem List Items Addressed This Visit Morbid (severe) obesity due to excess calories ([facility]) - Primary Discussed with patient their BMI (actual, verses recommended). We have also discussed lifestyle modifications: attempts to perform physical activity as chronic conditions allow, also to monitor dietary intake: increasing protein/fruits/veggies and lowering carb intake (unless contraindicated). Limit sodas, juices, and sugary drinks. Sebaceous cyst of axilla At last visit started Atb, and had her do warm compress Associated Problem(s): Sebaceous cyst of axilla At last visit started Atb, and had her do warm compress Associated Problem(s): Morbid (severe) obesity due to excess calories (CMS/HCC) Discussed with patient their BMI (actual, verses recommended). We have also discussed lifestyle modifications: attempts to perform physical activity as chronic conditions allow, also to monitor dietary intake: increasing protein/fruits/veggies and lowering carb intake (unless contraindicated). Limit sodas, juices, and sugary drinks. documented in this encounter [facility] 08-19-2024 History of Presen t illness Narrative Images from the original note were not included. NAME: Henrietta Garcia : 1980 HISTORY OF PRESENT ILLNESS: NEW PT Henrietta Garcia is an 43 y.o. @ female. (NEW PT) CARMELA RENEE REFERRAL. RT WRIST CYST ~3MO - DENIES INJURY XRAY RT WRIST TODAY EPIC 08/19/24 NOTES INTERMITTENT DISCOMFORT- DENIES CHANGE IN SIZE- DENIES TENDERNESS TO TOUCH- DENIES N/T- DENIES GRIPPING/GRASPING-NO PAIN MEDS PT RT HAND DOMINANT History of Present Illness The patient came in because she's been having pain in her right wrist and noticed a small bump on the inside part of her wrist. 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 Right Wrist Pain and Bump - Onset: Not specified. - Location: Right wrist, inside part. - Character: Pain with a small bump. - Alleviating/Aggravating Factors: Uses her right hand a lot at work as a medication technician. 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 - Frequently uses her right hand PAST MEDICAL HISTORY: Past Medical History: Diagnosis Date Abnormality of right breast on screening mammogram [place] Anxiety B[place] 08/16/2023 Depression, major [place] Environmental allergies RINA [place]generalized anxiety disorder) [place] 05/23/2023 History of being hospitalized 2010 PE Hyponatremia Insomnia Intrinsic eczema 05/23/2023 Mental problem MENTAL ILLNESS Obsessive compulsive disorder [place] 05/23/2023 OCD [place]obsessive compulsive disorder) [place] Paresthesia of right upper extremity Vaginal yeast infection PAST SURGICAL HISTORY: Past Surgical History: Procedure Laterality Date FEMINIZING AUGMENTATION MAMMOPLASTY Bilateral LUMBAR LAMINECTOMY Left TN BREAST REDUCTION REDUCTION MAMMOPLASTY TONSILLECTOMY SOCIAL HISTORY: Social History Occupational History Not on file Tobacco Use Smoking status: Never Smokeless tobacco: Never Vaping Use Vaping status: Never Used Substance and Sexual Activity Alcohol use: Yes Comment: rarely Drug use: Never Sexual activity: Defer ALLERGIES: Allergies Allergen Reactions Hydrocodone-Acetaminophen Hallucinations Zoloft [Sertraline] Hallucinations Latex Rash HOME MEDICATIONS: Current Outpatient Medications Medication Instructions ARIPiprazole (ABILIFY) 20 mg, Oral, Daily cephalexin (KEFLEX) 500 mg, Oral, 2 times daily cetirizine (ZYRTEC) 10 mg, Oral, Daily fluconazole (Diflucan) 150 MG tablet One time dose, may repeat in 3 days if needed fluvoxaMINE (LUVOX) 150 mg, Oral, 2 times daily hydrOXYzine pamoate (VISTARIL) 25 mg, Oral, Every 12 hours PRN levothyroxine (SYNTHROID, LEVOXYL) 137 mcg, Oral, Daily methylPREDNISolone (Medrol Dospak) 4 MG tablets Follow schedule on package instructions REVIEW OF SYSTEMS: Review of Systems Vitals: Body mass index is 40.74 kg/m . Tobacco Use: Low Risk (08/19/2024) Patient History Smoking Tobacco Use: Never Smokeless Tobacco Use: Never Passive Exposure: Not on file Alcohol Use: Not At Risk (10/04/2023) AUDIT-C Frequency of Alcohol Consumption: Monthly or less Average Number of Drinks: 1 or 2 Frequency of Binge Drinking: Never PHYSICAL EXAM: Hand/Wrist Musculoskeletal Exam Inspection Right Right hand/wrist inspection is normal. Erythema: none Ecchymosis: none Edema: none Deformity: none Palpation Right Right wrist palpation is normal. Wrist tenderness to palpation comment: DENIES PAIN TO SNUFF BOX OR SCAPHO-LUNATE. Palpation additional comments: Volar radial aspect to wrist noted for 1cm firm, slightly mobile soft tissue mass, bedside ultrasound shows hypoechoic 1cm mass over wrist joint, but no definitive stalk communicating.. consider MRI for further characterization. Range of Motion Right Wrist Right wrist range of motion is normal. Active Extension: 80 Passive Extension: 80 Active Flexion: 80 Passive Flexion: 80 Active Pronation: 90 Passive Pronation: 90 Active Supination: 90 Passive Supination: 90 Strength Right Hand Right hand strength is normal. Right Wrist Right wrist strength is normal. Extension: 5/5. Flexion: 5/5. Radial deviation: 5/5. Ulnar deviation: 5/5. Pronation: 5/5. Supination: 5/5. Neurovascular Right Right neurovascular exam is normal. Radial pulse: normal and 2+ Capillary refill: <3 sec and brisk Ulnar nerve sensory distribution: normal Median nerve sensory distribution: normal Superficial radial nerve sensory distribution: normal Special Tests Right DRUJ instability: negative TFCC load test: negative General Constitutional: appears stated age Labored breathing: no Neurological: alert and oriented x3 Skin: intact Lymphadenopathy: none IMAGING: Results Procedures Orders Placed This Encounter Procedures XR wrist 1 or 2 views right Order Specific Question: Is the patient ? Answer: No Order Specific Question: Reason for exam: Answer: PAIN ASSESSMENT: ICD-10-CM 1. Acute pain of right wrist M25.531 XR wrist 1 or 2 views right 2. Ganglion cyst of wrist, right M67.431 Ambulatory referral to Orthopaedic Surgery methylPREDNISolone (Medrol Dospak) 4 MG tablets Assessment & Plan 1. Right wrist pain and soft tissue mass. The clinical examination at bedside, including an informal ultrasound, suggests a 1 cm ganglion cyst on the volar aspect of her wrist. She is aware that a definitive diagnosis requires a pathology evaluation following surgical removal. However, the current observation of the size is deemed sufficient. Both surgical and nonsurgical treatment options were discussed. She has opted to try activity modification and an oral Medrol Dosepak. The risks and benefits of the oral steroid were explained. It is strongly recommended that she seek reevaluation if the size of the mass increases or if it becomes painful. If symptoms persist, an MRI with and without contrast may be considered for further evaluation. Follow-up The patient will follow up in 2 weeks. Questions answered in laymen terms at the bedside. The diagnosis, home exercise plan and any ongoing restrictions/ recommendations reviewed. If unable to be reached in office, I recommend evaluation at nearest Emergency Room if any symptoms worsened or new symptoms develop for requiring urgent evaluation. documented in this encounter [facility] 08-10-2024 History of Presen t illness Narrative Associated Problem(s): Sebaceous cyst of axilla Atb, warm compress Fu in 3 weeks for a recheck The lump is not on breast, and is superficial in location and suspected to be a S.C. Associated Problem(s): Ganglion cyst of wrist, right No hx of trauma Is painful, would like it to be removed Refer to ortho Pt noticed on a lump on her right breast/axillary area Refill on hydroxyzine 90 day supply Now going to [facility] Images from the original note were not included. Henrietta Garcia is a 43 y.o. female presents with chief complaint of No chief complaint on file. HPI: Breast lump: right breast, Thyroid Problem Presents for follow-up visit. Symptoms include anxiety. Patient reports no constipation, depressed mood, diarrhea, dry skin, fatigue, hair loss, heat intolerance, hoarse voice, menstrual problem, palpitations, tremors, weight gain or weight loss. The symptoms have been stable. Anxiety Presents for follow-up visit. Symptoms include compulsions and nervous/anxious behavior. Patient reports no chest pain, confusion, depressed mood, dizziness, dry mouth, excessive worry, irritability, muscle tension, nausea, palpitations, panic, shortness of breath or suicidal ideas. Symptoms occur most days. The severity of symptoms is mild. Compliance with medications is 76-100%. Depression Visit Type: follow-up Patient presents with the following symptoms: compulsions, feelings of hopelessness and nervousness/anxiety. Patient is not experiencing: anhedonia, confusion, depressed mood, dry mouth, excessive worry, feelings of worthlessness, irritability, muscle tension, palpitations, panic, shortness of breath, suicidal ideas, suicidal planning, thoughts of , weight gain and weight loss. Frequency of symptoms: occasionally Severity: mild Compliance with medications: 76-100% SUBJECTIVE: MEDICATIONS: Current Outpatient Medications Medication Instructions ARIPiprazole (ABILIFY) 20 mg, Oral, Daily cephalexin (KEFLEX) 500 mg, Oral, 2 times daily cetirizine (ZYRTEC) 10 mg, Oral, Daily fluconazole (Diflucan) 150 MG tablet One time dose, may repeat in 3 days if needed fluvoxaMINE (LUVOX) 150 mg, Oral, 2 times daily hydrOXYzine pamoate (VISTARIL) 25 mg, Oral, Every 12 hours PRN levothyroxine (SYNTHROID, LEVOXYL) 137 mcg, Oral, Daily ALLERGIES: Allergies Allergen Reactions Hydrocodone-Acetaminophen Hallucinations Zoloft [Sertraline] Hallucinations Latex Rash REVIEW OF SYMPTOMS: Review of Systems Constitutional: Negative for appetite change, chills, fatigue, fever, irritability, weight gain and weight loss. HENT: Negative for congestion, ear pain, hoarse voice and sore throat. Eyes: Negative for pain, discharge, redness and visual disturbance. Breasts: Positive for breast mass. Respiratory: Negative for cough, shortness of breath and wheezing. Cardiovascular: Negative for chest pain, palpitations and leg swelling. Gastrointestinal: Negative for abdominal pain, blood in stool, constipation, diarrhea, nausea and vomiting. Genitourinary: Negative for difficulty urinating, dysuria, frequency and menstrual problem. Musculoskeletal: Negative for arthralgias, back pain, joint swelling and myalgias. Skin: Negative for rash and wound. Neurological: Negative for dizziness, tremors, seizures, syncope and headaches. Psychiatric/Behavioral: Positive for depression. Negative for behavioral problems, confusion, self-injury and suicidal ideas. The patient is nervous/anxious. Depression Hematological: Does not bruise/bleed easily. Endocrine: Negative for heat intolerance, polydipsia, polyphagia and polyuria. Allergic/Immunologic: Negative for environmental allergies and food allergies. PAST MEDICAL HISTORY Past Medical History: Diagnosis Date Abnormality of right breast on screening mammogram Adult hypothyroidism ([facility]) Anxiety Bipolar depression ([facility]) 08/16/2023 Depression, major ([facility]) Environmental allergies RINA (generalized anxiety disorder) ([facility]) 05/23/2023 History of being hospitalized 2010 PE Hyponatremia Insomnia Intrinsic eczema 05/23/2023 Mental problem MENTAL ILLNESS Obsessive compulsive disorder ([facility]) 05/23/2023 OCD (obsessive compulsive disorder) ([facility]) Paresthesia of right upper extremity Vaginal yeast infection Past Surgical History: Procedure Laterality Date FEMINIZING AUGMENTATION MAMMOPLASTY Bilateral LUMBAR LAMINECTOMY Left TN BREAST REDUCTION REDUCTION MAMMOPLASTY TONSILLECTOMY family history is not on file. She was adopted. OBJECTIVE: Visit Vitals BP 122/76 (BP Location: Left arm, Patient Position: Sitting, BP Cuff Size: Large adult) Pulse 69 Temp 98.1 F (Temporal) Resp 18 Wt 229 lb 6.4 oz SpO2 98% BMI 41.96 kg/m Smoking Status Never BSA 2.13 m Physical Exam Vitals and nursing note reviewed. Constitutional: General: She is not in acute distress. Appearance: Normal appearance. HENT: Head: Normocephalic and atraumatic. Right Ear: External ear normal. Left Ear: External ear normal. Nose: Nose normal. Mouth/Throat: Mouth: Mucous membranes are moist. Eyes: Extraocular Movements: Extraocular movements intact. Conjunctiva/sclera: Conjunctivae normal. Neck: Vascular: No carotid bruit. Cardiovascular: Rate and Rhythm: Normal rate and regular rhythm. Pulses: Normal pulses. Heart sounds: Normal heart sounds. Pulmonary: Effort: Pulmonary effort is normal. Breath sounds: Normal breath sounds. No wheezing or rhonchi. Chest: Chest wall: No mass, lacerations, deformity, swelling, tenderness, crepitus or edema. Breasts: Stuart Score is 5. Right: No swelling, inverted nipple, mass, nipple discharge, skin change or tenderness. Left: Normal. No swelling, inverted nipple, mass, nipple discharge, skin change or tenderness. Comments: Lump in right axillary region suspected to be a sebaceous cyst: no induration, measures approx 8mm in size Abdominal: General: Bowel sounds are normal. There is no distension. Palpations: Abdomen is soft. There is no mass. Tenderness: There is no abdominal tenderness. Musculoskeletal: General: Normal range of motion. Cervical back: Neck supple. Right lower leg: No edema. Left lower leg: No edema. Comments: Lump to right radial wrist area, suspected ganglion cyst Lymphadenopathy: Cervical: No cervical adenopathy. Skin: General: Skin is warm and dry. Capillary Refill: Capillary refill takes 2 to 3 seconds. Findings: No rash. Neurological: General: No focal deficit present. Mental Status: She is alert and oriented to person, place, and time. Psychiatric: Mood and Affect: Mood normal. Behavior: Behavior normal. Thought Content: Thought content normal. Judgment: Judgment normal. ASSESSMENT AND PLAN: No follow-ups on file. Problem List Items Addressed This Visit Acquired hypothyroidism (CMS/HCC) - Primary Currently taking levothyroxine Check labs yearly and prn dose changes and changes in symptoms RINA (generalized anxiety disorder) (CMS/HCC) Current meds: abilify, fluovoxamine, vistaril RINA 7 score= 5 Relevant Medications fluvoxaMINE (Luvox) 100 MG tablet hydrOXYzine pamoate (Vistaril) 25 MG capsule Obsessive compulsive disorder (CMS/HCC) Current med: flovoxamine and vistaril prn Bipolar depression (CMS/HCC) Current meds: abilify, fluovoxamine PHQ 9 score=6 Morbid (severe) obesity due to excess calories (CMS/HCC) Discussed with patient their BMI (actual, verses recommended). We have also discussed lifestyle modifications: attempts to perform physical activity as chronic conditions allow, also to monitor dietary intake: increasing protein/fruits/veggies and lowering carb intake (unless contraindicated). Limit sodas, juices, and sugary drinks. Also discussed oral medications that can be utilized for weight loss, as well as surgical options for weight loss. Panic attack as reaction to stress (CMS/HCC) Current meds: abilify, fluvoxamine, and vistaril prn Relevant Medications hydrOXYzine pamoate (Vistaril) 25 MG capsule Body mass index (BMI) 40.0-44.9, adult (CMS/HCC) Environmental and seasonal allergies Takes cetirizine Relevant Medications cetirizine (ZyrTEC) 10 MG tablet Ganglion cyst of wrist, right No hx of trauma Is painful, would like it to be removed Refer to ortho Relevant Orders Ambulatory referral to Orthopaedic Surgery Sebaceous cyst of axilla Atb, warm compress Fu in 3 weeks for a recheck The lump is not on breast, and is superficial in location and suspected to be a S.C. Relevant Medications cephalexin (Keflex) 500 MG capsule fluconazole (Diflucan) 150 MG tablet Other Visit Diagnoses Bipolar disorder, unspecified (CMS/HCC) Relevant Medications ARIPiprazole (Abilify) 20 MG tablet Obsessive-compulsive disorder, unspecified (CMS/HCC) Relevant Medications fluvoxaMINE (Luvox) 100 MG tablet hydrOXYzine pamoate (Vistaril) 25 MG capsule Hypothyroidism, unspecified (CMS/HCC) Relevant Medications levothyroxine (Synthroid, Levoxyl) 137 MCG tablet Associated Problem(s): Panic attack as reaction to stress (CMS/HCC) Current meds: abilify, fluvoxamine, and vistaril prn Associated Problem(s): Obsessive compulsive disorder (CMS/HCC) Current med: flovoxamine and vistaril prn Associated Problem(s): RINA (generalized anxiety disorder) (CMS/HCC) Current meds: abilify, fluovoxamine, vistaril RINA 7 score= 5 Associated Problem(s): Environmental and seasonal allergies Takes cetirizine Associated Problem(s): Bipolar depression (CMS/HCC) Current meds: abilify, fluovoxamine PHQ 9 score=6 Associated Problem(s): Morbid (severe) obesity due to excess calories (CMS/HCC) Discussed with patient their BMI (actual, verses recommended). We have also discussed lifestyle modifications: attempts to perform physical activity as chronic conditions allow, also to monitor dietary intake: increasing protein/fruits/veggies and lowering carb intake (unless contraindicated). Limit sodas, juices, and sugary drinks. Also discussed oral medications that can be utilized for weight loss, as well as surgical options for weight loss. 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 Pt is asking to get a refill on the hydroxyzine she was taking 3 times daily she is completely out of her prescription from you and is asking to take 1 tab daily instead of a half Images from the original note were not included. Henrietta Garcia is a 43 y.o. female presents with chief complaint of No chief complaint on file. HPI: Here for flea bites: about 2 weeks ago, bites entire body, went to ER, given atb and vistaril She has completed therapy and is getting better. No fever, chills, would like to take the vistaril in capsule form 25mg BID prn SUBJECTIVE: MEDICATIONS: Current Outpatient Medications Medication Instructions ARIPiprazole (ABILIFY) 20 mg, Oral, Daily cetirizine (ZYRTEC) 10 mg, Oral, Daily fluvoxaMINE (LUVOX) 150 mg, Oral, 2 times daily hydrOXYzine HCl (ATARAX) 12.5 mg, Oral, Every 12 hours PRN levothyroxine (SYNTHROID, LEVOXYL) 137 mcg, Oral, Daily temazepam (RESTORIL) 15 mg, Nightly PRN ALLERGIES: Allergies Allergen Reactions Hydrocodone-Acetaminophen Hallucinations Zoloft [Sertraline] Hallucinations Latex Rash REVIEW OF SYMPTOMS: Review of Systems Constitutional: Negative for appetite change, chills and fever. HENT: Negative for congestion, ear pain and sore throat. Eyes: Negative for pain, discharge, redness and visual disturbance. Respiratory: Negative for cough, shortness of breath and wheezing. Cardiovascular: Negative for chest pain, palpitations and leg swelling. Gastrointestinal: Negative for abdominal pain, blood in stool, constipation, diarrhea, nausea and vomiting. Genitourinary: Negative for difficulty urinating, dysuria and frequency. Musculoskeletal: Negative for arthralgias, back pain, joint swelling and myalgias. Skin: Positive for rash. Negative for wound. Neurological: Negative for dizziness, tremors, seizures, syncope and headaches. Psychiatric/Behavioral: Negative for behavioral problems, self-injury and suicidal ideas. The patient is nervous/anxious. Hematological: Does not bruise/bleed easily. Endocrine: Negative for polydipsia, polyphagia and polyuria. Allergic/Immunologic: Negative for environmental allergies and food allergies. PAST MEDICAL HISTORY Past Medical History: Diagnosis Date Abnormality of right breast on screening mammogram Adult hypothyroidism ([facility]) Anxiety Bipolar depression ([facility]) 08/16/2023 Depression, major ([facility]) Environmental allergies RINA (generalized anxiety disorder) ([facility]) 05/23/2023 History of being hospitalized 2010 PE Hyponatremia Insomnia Intrinsic eczema 05/23/2023 Mental problem MENTAL ILLNESS Obsessive compulsive disorder ([facility]) 05/23/2023 OCD (obsessive compulsive disorder) ([facility]) Paresthesia of right upper extremity Vaginal yeast infection Past Surgical History: Procedure Laterality Date FEMINIZING AUGMENTATION MAMMOPLASTY Bilateral LUMBAR LAMINECTOMY Left TN BREAST REDUCTION REDUCTION MAMMOPLASTY TONSILLECTOMY family history is not on file. She was adopted. OBJECTIVE: Visit Vitals BP 118/80 (BP Location: Left arm, Patient Position: Sitting, BP Cuff Size: Adult long) Pulse 89 Temp 98.5 F (Temporal) Resp 18 Ht 5' 2 Wt 229 lb 3.2 oz SpO2 94% BMI 41.92 kg/m Smoking Status Never BSA 2.13 m Physical Exam Vitals and nursing note reviewed. Constitutional: General: She is not in acute distress. Appearance: Normal appearance. HENT: Head: Normocephalic and atraumatic. Right Ear: Tympanic membrane, ear canal and external ear normal. Left Ear: Tympanic membrane, ear canal and external ear normal. Nose: Nose normal. No congestion or rhinorrhea. Mouth/Throat: Mouth: Mucous membranes are moist. Pharynx: No oropharyngeal exudate or posterior oropharyngeal erythema. Eyes: General: No scleral icterus. Extraocular Movements: Extraocular movements intact. Conjunctiva/sclera: Conjunctivae normal. Cardiovascular: Rate and Rhythm: Normal rate and regular rhythm. Pulses: Normal pulses. Heart sounds: Normal heart sounds. Pulmonary: Effort: Pulmonary effort is normal. Breath sounds: Normal breath sounds. No wheezing or rales. Abdominal: General: Bowel sounds are normal. There is no distension. Palpations: Abdomen is soft. There is no mass. Tenderness: There is no abdominal tenderness. Musculoskeletal: General: Normal range of motion. Cervical back: Normal range of motion and neck supple. Right lower leg: No edema. Left lower leg: No edema. Lymphadenopathy: Cervical: No cervical adenopathy. Skin: General: Skin is warm and dry. Capillary Refill: Capillary refill takes 2 to 3 seconds. Findings: No rash (scabs to bilat extremities etc c/w flea bites, pt states is getting better). Neurological: General: No focal deficit present. Mental Status: She is alert and oriented to person, place, and time. Psychiatric: Mood and Affect: Mood normal. Behavior: Behavior normal. Thought Content: Thought content normal. Judgment: Judgment normal. ASSESSMENT AND PLAN: No follow-ups on file. Problem List Items Addressed This Visit RINA (generalized anxiety disorder) (CMS/HCC) Relevant Medications fluvoxaMINE (Luvox) 100 MG tablet hydrOXYzine pamoate (Vistaril) 25 MG capsule Bipolar disorder, unspecified (CMS/HCC) Relevant Medications ARIPiprazole (Abilify) 20 MG tablet Morbid (severe) obesity due to excess calories (CMS/HCC) Panic attack as reaction to stress (CMS/HCC) Relevant Medications hydrOXYzine pamoate (Vistaril) 25 MG capsule Body mass index (BMI) 40.0-44.9, adult (CMS/HCC) Environmental and seasonal allergies Relevant Medications cetirizine (ZyrTEC) 10 MG tablet Flea bite of multiple sites - Primary Symptoms improving 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, 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 and will have it done again next week Generalized pruritus Improving with atarax Fu if needed Other Visit Diagnoses Obsessive-compulsive disorder, unspecified (CMS/HCC) Relevant Medications fluvoxaMINE (Luvox) 100 MG tablet hydrOXYzine pamoate (Vistaril) 25 MG capsule Hypothyroidism, unspecified (CMS/HCC) Relevant Medications levothyroxine (Synthroid, Levoxyl) 137 MCG tablet documented in this encounter [facility] 09-22-2021 Evaluation note Encounter Date Diagnosis Assessment Notes Sep, Acute otitis externa of left ear, unspecified type (ICD-10 - H60.502) Drink plenty fluids, get plenty of rest. Use the eardrops as prescribed for 7 days. Take Tylenol Motrin for pain or fevers. Follow-up with your family physician if no improvement in 2 to 3 days 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 Other Evaluation note* Diagnosis Acquired hypothyroidism (CMS/HCC)- Primary Unspecified hypothyroidism Hypothyroidism, unspecified ([facility]/HCC) [facility] Diagnosis Acquired hypothyroidism (CMS/HCC)- Primary Unspecified hypothyroidism Intrinsic eczema RINA (generalized anxiety disorder) ([facility]/HCC) Generalized anxiety disorder Obsessive-compulsive disorder, unspecified type ([facility]/HCC) Acquired hypothyroidism (CMS/HCC)- Primary Unspecified hypothyroidism RINA (generalized anxiety disorder) ([facility]/HCC) Generalized anxiety disorder Screening for colon cancer Special screening for malignant neoplasms, colon Bipolar affective disorder, remission status unspecified ([facility]) Obsessive-compulsive disorder, unspecified ([facility]/HCC) Hypothyroidism, unspecified ([facility]) Panic attack as reaction to stress ([facility])- Primary Encounter for screening mammogram for malignant neoplasm of breast RINA (generalized anxiety disorder) ([facility]/HCC) Generalized anxiety disorder RINA (generalized anxiety disorder) ([facility]/HCC)- Primary Generalized anxiety disorder Morbid (severe) obesity due to excess calories (CMS/HCC) Body mass index (BMI) 40.0-44.9, adult ([facility]) Panic attack as reaction to stress ([facility]) Flea bite of multiple sites- Primary Morbid (severe) obesity due to excess calories ([facility]) Body mass index (BMI) 40.0-44.9, adult ([facility]/HCC) RINA (generalized anxiety disorder) ([facility]/HCC) Generalized anxiety disorder Obsessive-compulsive disorder, unspecified ([facility]/HCC) Hypothyroidism, unspecified ([facility]) Bipolar disorder, unspecified ([facility]) Bipolar disorder, unspecified Panic attack as reaction to stress ([facility]) Environmental and seasonal allergies Generalized pruritus Unspecified pruritic disorder [facility] Diagnosis Bipolar disorder, unspecified ([facility]) Bipolar disorder, unspecified [facility]* Diagnosis RINA (generalized anxiety disorder) ([facility]) Generalized anxiety disorder Panic attack as reaction to stress ([facility]) [facility]* Diagnosis Acquired hypothyroidism ([facility])- Primary Unspecified hypothyroidism Intrinsic eczema RINA (generalized anxiety disorder) ([facility]) Generalized anxiety disorder Obsessive-compulsive disorder, unspecified type ([facility]) Acquired hypothyroidism ([facility])- Primary Unspecified hypothyroidism RINA (generalized anxiety disorder) ([facility]) Generalized anxiety disorder Screening for colon cancer Special screening for malignant neoplasms, colon Bipolar affective disorder, remission status unspecified ([facility]) Obsessive-compulsive disorder, unspecified ([facility]) Hypothyroidism, unspecified ([facility]) Panic attack as reaction to stress ([facility])- Primary Encounter for screening mammogram for malignant neoplasm of breast RINA (generalized anxiety disorder) ([facility]) Generalized anxiety disorder RINA (generalized anxiety disorder) ([facility])- Primary Generalized anxiety disorder Morbid (severe) obesity due to excess calories ([facility]) Body mass index (BMI) 40.0-44.9, adult ([facility]) Panic attack as reaction to stress ([facility]) Flea bite of multiple sites- Primary Morbid (severe) obesity due to excess calories ([facility]) Body mass index (BMI) 40.0-44.9, adult ([facility]) RINA (generalized anxiety disorder) ([facility]) Generalized anxiety disorder Obsessive-compulsive disorder, unspecified ([facility]) Hypothyroidism, unspecified ([facility]) Bipolar disorder, unspecified ([facility]) Bipolar disorder, unspecified Panic attack as reaction to stress ([facility]) Environmental and seasonal allergies Generalized pruritus Unspecified pruritic disorder RINA (generalized anxiety disorder) ([facility]) Generalized anxiety disorder Obsessive-compulsive disorder, unspecified ([facility]) Panic attack as reaction to stress (CMS/HCC) [facility] Diagnosis Acquired hypothyroidism (CMS/HCC)- Primary Unspecified hypothyroidism Intrinsic eczema RINA (generalized anxiety disorder) (CMS/HCC) Generalized anxiety disorder Obsessive-compulsive disorder, unspecified type (CMS/HCC) Acquired hypothyroidism (CMS/HCC)- Primary Unspecified hypothyroidism RINA (generalized anxiety disorder) (CMS/HCC) Generalized anxiety disorder Screening for colon cancer Special screening for malignant neoplasms, colon Bipolar affective disorder, remission status unspecified (CMS/HCC) Obsessive-compulsive disorder, unspecified (CMS/HCC) Hypothyroidism, unspecified (CMS/HCC) Panic attack as reaction to stress (CMS/HCC)- Primary Encounter for screening mammogram for malignant neoplasm of breast RINA (generalized anxiety disorder) (CMS/HCC) Generalized anxiety disorder RINA (generalized anxiety disorder) (CMS/HCC)- Primary Generalized anxiety disorder Morbid (severe) obesity due to excess calories (CMS/HCC) Body mass index (BMI) 40.0-44.9, adult (CMS/HCC) Panic attack as reaction to stress (CMS/HCC) Flea bite of multiple sites- Primary Morbid (severe) obesity due to excess calories (CMS/HCC) Body mass index (BMI) 40.0-44.9, adult (CMS/HCC) RINA (generalized anxiety disorder) (CMS/HCC) Generalized anxiety disorder Obsessive-compulsive disorder, unspecified (CMS/HCC) Hypothyroidism, unspecified (CMS/HCC) Bipolar disorder, unspecified (CMS/HCC) Bipolar disorder, unspecified Panic attack as reaction to stress (CMS/HCC) Environmental and seasonal allergies Generalized pruritus Unspecified pruritic disorder Sebaceous cyst of axilla- Primary Morbid (severe) obesity due to excess calories (CMS/HCC) Body mass index (BMI) 40.0-44.9, adult (CMS/HCC) Acquired hypothyroidism (CMS/HCC) Unspecified hypothyroidism Bipolar depression (CMS/HCC) Bipolar I disorder, most recent episode (or current) depressed, unspecified Environmental and seasonal allergies RINA (generalized anxiety disorder) (CMS/HCC) Generalized anxiety disorder Mixed obsessional thoughts and acts (CMS/HCC) Panic attack as reaction to stress (CMS/HCC) Bipolar disorder, unspecified (CMS/HCC) Bipolar disorder, unspecified Obsessive-compulsive disorder, unspecified (CMS/HCC) Hypothyroidism, unspecified (CMS/HCC) Ganglion cyst of wrist, right [facility] Diagnosis Acquired hypothyroidism (CMS/HCC)- Primary Unspecified hypothyroidism Intrinsic eczema RINA (generalized anxiety disorder) (CMS/HCC) Generalized anxiety disorder Obsessive-compulsive disorder, unspecified type (CMS/HCC) Acquired hypothyroidism (CMS/HCC)- Primary Unspecified hypothyroidism RINA (generalized anxiety disorder) (CMS/HCC) Generalized anxiety disorder Screening for colon cancer Special screening for malignant neoplasms, colon Bipolar affective disorder, remission status unspecified ([facility]) Obsessive-compulsive disorder, unspecified ([facility]/HCC) Hypothyroidism, unspecified ([facility]/HCC) Panic attack as reaction to stress (CMS/HCC)- Primary Encounter for screening mammogram for malignant neoplasm of breast RINA (generalized anxiety disorder) (CMS/HCC) Generalized anxiety disorder RINA (generalized anxiety disorder) ([facility]/HCC)- Primary Generalized anxiety disorder Morbid (severe) obesity due to excess calories (CMS/[facility]) Body mass index (BMI) 40.0-44.9, adult ([facility]) Panic attack as reaction to stress ([facility]) Flea bite of multiple sites- Primary Morbid (severe) obesity due to excess calories (CMS/[facility]) Body mass index (BMI) 40.0-44.9, adult ([facility]) RINA (generalized anxiety disorder) ([facility]/HCC) Generalized anxiety disorder Obsessive-compulsive disorder, unspecified (CMS/HCC) Hypothyroidism, unspecified (CMS/HCC) Bipolar disorder, unspecified ([facility]) Bipolar disorder, unspecified Panic attack as reaction to stress ([facility]) Environmental and seasonal allergies Generalized pruritus Unspecified pruritic disorder Sebaceous cyst of axilla- Primary Morbid (severe) obesity due to excess calories (CMS/[facility]) Body mass index (BMI) 40.0-44.9, adult ([facility]) Acquired hypothyroidism (CMS/HCC) Unspecified hypothyroidism Bipolar depression ([facility]) Bipolar I disorder, most recent episode (or current) depressed, unspecified Environmental and seasonal allergies RINA (generalized anxiety disorder) ([facility]/HCC) Generalized anxiety disorder Mixed obsessional thoughts and acts (CMS/HCC) Panic attack as reaction to stress ([facility]/HCC) Bipolar disorder, unspecified (CMS/HCC) Bipolar disorder, unspecified Obsessive-compulsive disorder, unspecified (CMS/HCC) Hypothyroidism, unspecified (CMS/HCC) Ganglion cyst of wrist, right Acute pain of right wrist- Primary Ganglion cyst of wrist, right [facility]* Diagnosis Acquired hypothyroidism (CMS/HCC)- Primary Unspecified hypothyroidism Intrinsic eczema RINA (generalized anxiety disorder) (CMS/HCC) Generalized anxiety disorder Obsessive-compulsive disorder, unspecified type (CMS/HCC) Acquired hypothyroidism (CMS/HCC)- Primary Unspecified hypothyroidism RINA (generalized anxiety disorder) (CMS/HCC) Generalized anxiety disorder Screening for colon cancer Special screening for malignant neoplasms, colon Bipolar affective disorder, remission status unspecified (CMS/HCC) Obsessive-compulsive disorder, unspecified (CMS/HCC) Hypothyroidism, unspecified (CMS/HCC) Panic attack as reaction to stress (CMS/HCC)- Primary Encounter for screening mammogram for malignant neoplasm of breast RINA (generalized anxiety disorder) (CMS/HCC) Generalized anxiety disorder RINA (generalized anxiety disorder) (CMS/HCC)- Primary Generalized anxiety disorder Morbid (severe) obesity due to excess calories (CMS/[facility]) Body mass index (BMI) 40.0-44.9, adult ([facility]) Panic attack as reaction to stress ([facility]) Flea bite of multiple sites- Primary Morbid (severe) obesity due to excess calories (CMS/[facility]) Body mass index (BMI) 40.0-44.9, adult ([facility]) RINA (generalized anxiety disorder) (CMS/HCC) Generalized anxiety disorder Obsessive-compulsive disorder, unspecified (CMS/HCC) Hypothyroidism, unspecified (CMS/HCC) Bipolar disorder, unspecified (CMS/HCC) Bipolar disorder, unspecified Panic attack as reaction to stress ([facility]) Environmental and seasonal allergies Generalized pruritus Unspecified pruritic disorder Sebaceous cyst of axilla- Primary Morbid (severe) obesity due to excess calories (CMS/[facility]) Body mass index (BMI) 40.0-44.9, adult ([facility]/HCC) Acquired hypothyroidism (CMS/HCC) Unspecified hypothyroidism Bipolar depression (CMS/[facility]) Bipolar I disorder, most recent episode (or current) depressed, unspecified Environmental and seasonal allergies RINA (generalized anxiety disorder) (CMS/HCC) Generalized anxiety disorder Mixed obsessional thoughts and acts (CMS/HCC) Panic attack as reaction to stress (CMS/HCC) Bipolar disorder, unspecified (CMS/HCC) Bipolar disorder, unspecified Obsessive-compulsive disorder, unspecified (CMS/HCC) Hypothyroidism, unspecified (CMS/HCC) Ganglion cyst of wrist, right Sebaceous cyst of axilla- Primary Morbid (severe) obesity due to excess calories (CMS/HCC) Acute pain of right wrist- Primary Ganglion cyst of wrist, right documented in this encounter [facility] Diagnosis Acquired hypothyroidism- Primary Unspecified hypothyroidism Intrinsic eczema RINA (generalized anxiety disorder) Generalized anxiety disorder Obsessive-compulsive disorder, unspecified type Acquired hypothyroidism- Primary Unspecified hypothyroidism RINA (generalized anxiety disorder) Generalized anxiety disorder Screening for colon cancer Special screening for malignant neoplasms, colon Bipolar affective disorder, remission status unspecified (HCC) Obsessive-compulsive disorder, unspecified Hypothyroidism, unspecified Panic attack as reaction to stress- Primary Encounter for screening mammogram for malignant neoplasm of breast RINA (generalized anxiety disorder) Generalized anxiety disorder RINA (generalized anxiety disorder)- Primary Generalized anxiety disorder Morbid (severe) obesity due to excess calories (CMS-HCC) Body mass index (BMI) 40.0-44.9, adult (CMS-HCC) Panic attack as reaction to stress Flea bite of multiple sites- Primary Morbid (severe) obesity due to excess calories (CMS-HCC) Body mass index (BMI) 40.0-44.9, adult (CMS-HCC) RINA (generalized anxiety disorder) Generalized anxiety disorder Obsessive-compulsive disorder, unspecified Hypothyroidism, unspecified Bipolar disorder, unspecified (HCC) Bipolar disorder, unspecified Panic attack as reaction to stress Environmental and seasonal allergies Generalized pruritus Unspecified pruritic disorder Sebaceous cyst of axilla- Primary Morbid (severe) obesity due to excess calories (CMS-HCC) Body mass index (BMI) 40.0-44.9, adult (CMS-HCC) Acquired hypothyroidism Unspecified hypothyroidism Bipolar depression (HCC) Bipolar I disorder, most recent episode (or current) depressed, unspecified Environmental and seasonal allergies RINA (generalized anxiety disorder) Generalized anxiety disorder Mixed obsessional thoughts and acts Panic attack as reaction to stress Bipolar disorder, unspecified (HCC) Bipolar disorder, unspecified Obsessive-compulsive disorder, unspecified Hypothyroidism, unspecified Ganglion cyst of wrist, right Sebaceous cyst of axilla- Primary Morbid (severe) obesity due to excess calories (CMS-HCC) Acute non-recurrent maxillary sinusitis- Primary Morbid (severe) obesity due to excess calories (CMS-HCC) Hypothyroidism, unspecified- Primary Sebaceous cyst of axilla Rash Rash and other nonspecific skin eruption documented in this encounter [facility] Narrative - Reported* Type Description Date Medical History Insomnia Medical History Hypothyroidism Medical History Anxiety Medical History Depression Surgical History tonsillectomy and adenoidectomy Surgical History breast reduction Surgical History lumbar laminectomy Hospitalization History pulmonary embolism 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 Other Summary Purpose Family History No Family History Records FoundNo Family History Records FoundNo Family History Records FoundNo Family History Records Found Advance Directives No Advanced Directives Records FoundNo Advanced Directives Records FoundNo Advanced Directives Records FoundNo Advanced Directives Records Found Additional Source Comments INFORMATION SOURCE (unrecogn ized section and content) DATE CREATED AUTHOR 11/24/2019 [facility] DATE CREATED AUTHOR AUTHOR'S ORGANIZ ATION 08/14/2020 [facility] DATE CREATED AUTHOR AUTHOR'S ORGANIZ ATION 09/04/2022 [facility] DATE CREATED AUTHOR AUTHOR'S ORGANIZ ATION 09/16/2024 [facility] EPIC REASON FOR VISIT (unrecogniz ed section and content) Reason Comments Med Refill Reason Comments Pain Specialty Diagnoses / Procedures Referred By Toribio myrick Referred To Contact Orthopaedic Surgery Diagnoses Ganglion cyst of wrist, right Carmela Renee NP [address] [place] [address] Phone: tel: fax: Silvana Parr NP fax: Referral ID Status Reason Start Date Expiration Date V isits Requested Visits Authorized [id number] Closed Specialty Services Required 08/10/2024 02/06/2025 1 1 Reason Onset Date Comments Med Refill 12/16/2024 Care Teams (unrecognized sec tion and content) Layout Technician Relationship Specialty Start Date End Date Chadwick Sauceda MD PCP - General Family Medicine 01/09/23 Carmela Rneee NP [address] [place] [address] Referring Physician Nurse Practitioner 01/09/23 Layout Technician Relationship Specialty Start Date End Date Chadwick Sauceda MD [address] [place] [address] PCP - General Family Medicine 10/07/23 Carmela Renee NP [address] [place] [address] Referring Physician Nurse Practitioner 01/09/23 Carmela Renee NP [address] [place] [address] Nurse Practitioner Family Medicine 10/07/23 Layout Technician Relationship Specialty Start Date End Date Chadwick Sauceda MD [address] [place] [address] PCP - General Family Medicine 10/07/23 Carmela Renee NP [address] [place] [address] Referring Physician Nurse Practitioner 01/09/23 Carmela Renee NP [address] [place] [address] Nurse Practitioner Family Medicine 10/07/23 Layout Technician Relationship Specialty Start Date End Date Chadwick Sauceda MD [address] [place] [address] PCP - General Family Medicine 10/07/23 Carmela Renee NP [address] [place] [address] Referring Physician Nurse Practitioner 01/09/23 Carmela Renee NP [address] [place] [address] Nurse Practitioner Family Medicine 10/07/23 Layout Technician Relationship Specialty Start Date End Date Chadwick Sauceda MD [address] [place] [address] PCP - General Family Medicine 10/07/23 Carmela Renee NP [address] [place] [address] Referring Physician Nurse Practitioner 01/09/23 Carmela Renee NP [address] [place] [address] Nurse Practitioner Family Medicine 10/07/23 Layout Technician Relationship Specialty Start Date End Date Chadwick Sauceda MD [address] [place] [address] PCP - General Family Medicine 04/23/24 Carmela Renee NP [address] [place] [address] Referring Physician Nurse Practitioner 01/09/23 Carmela Renee NP [address] [place] [address] Primary Care Provider Family Medicine 10/07/23 Layout Technician Relationship Specialty Start Date End Date Chadwick Sauceda MD [address] [place] [address] PCP - General Family Medicine 04/23/24 Carmela Renee NP [address] [place] [address] Referring Physician Nurse Practitioner 01/09/23 Carmela Renee NP [address] [place] [address] Primary Care Provider Family Medicine 10/07/23 Layout Technician Relationship Specialty Start Date End Date Chadwick Sauceda MD [address] [place] [address] PCP - General Family Medicine 04/23/24 Carmela Renee NP [address] [place] [address] Referring Physician Nurse Practitioner 01/09/23 Carmela Renee NP [address] [place] [address] Primary Care Provider Family Medicine 10/07/23 Layout Technician Relationship Specialty Start Date End Date Chadwick Sauceda MD [address] [place] [address] PCP - General Family Medicine 04/23/24 Carmela Renee NP [address] [place] [address] Referring Physician Nurse Practitioner 01/09/23 Carmela Renee NP [address] [place] [address] Primary Care Provider Family Medicine 10/07/23 Layout Technician Relationship Specialty Start Date End Date Chadwick Sauceda MD [address] [place] [address] PCP - General Family Medicine 04/23/24 Carmela Renee NP [address] [place] [address] Referring Physician Nurse Practitioner 01/09/23 Carmela Renee NP [address] [place] [address] Primary Care Provider Family Medicine 10/07/23 Layout Technician Relationship Specialty Start Date End Date Chadwick Sauceda MD [address] [place] [address] PCP - General Family Medicine 04/23/24 Carmela Renee NP [address] [place] [address] Referring Physician Nurse Practitioner 01/09/23 Carmela Renee NP [address] [place] [address] Primary Care Provider Family Medicine 10/07/23 Layout Technician Relationship Specialty Start Date End Date Chadwick Sauceda MD [address] [place] [address] PCP - General Family Medicine 04/23/24 Carmela Renee NP [address] [place] [address] PCP - [facility] 09/22/24 Carmela Renee NP [address] [place] [address] Referring Physician Nurse Practitioner 01/09/23 Carmela Renee NP [address] [place] [address] Primary Care Provider Family Medicine 10/07/23 FOR RECORDS PERTAINING TO PATIENTS WHO ARE [...] BE BASED ON THE PRIMARY CLINICAL RECORDS. [employer] provides no warranty or guarantee of the accuracy or completeness of information in this document.
== END 2025-03-03 09:31 | disposition home or self-care (01) ==
LOC: MAMMO 09:31
PROVIDERS: PCP Nurse Practitioner; Visit Provider Nurse Practitioner
DX: Z12.31 Encounter for screening mammogram for malignant neoplasm of breast (principal)
CPT/HCPCS: 77063; 77067

== ENCOUNTER 2025-03-09 11:17 | Outpatient (OUT) | payer BC, SELFPAY ==
--- OUTSIDE RECORDS SUMMARY | 2025-03-09 11:21 | XMS_ITS | Clinical Summary ---
Author Organization [facility] Address [address], [address] [place] [address] Care Team Providers Care Hardness Tester Name Role Phone Carmela Renee GEOTHERMAL SYSTEM INSTALLER - CORN HUSK BALER Primary Care Provide r Social History Tobacco Use Types Packs/Day Years Used Date Smoking Tobacco: Never Assessed Comments Unknown Sex and Gender Information Value Date Recorded Sex Assigned at Not on file Legal Sex Female 9:15 AM EST Gender Identity Not on file Sexual Orientation Not on file Plan of Treatment Not on file Insurance [facility] Care Teams Hardness Tester Relationship Specialty Start Date End Date Carmela Renee, GEOTHERMAL SYSTEM INSTALLER - CORN HUSK BALER [address] [place] [address] PCP - General Nurse Practitioner 08/12/20
--- OUTSIDE RECORDS SUMMARY | 2025-03-09 11:21 | XMS_ITS | Encounter Summary ---
Author Organization [facility] Address [address] [place] [address] Care Team Providers Care Board Mixer Tender Name Role Phone Carmela Renee NP Unavailable [phone] Carmela Renee NP Unavailable [phone] Unallocated, Noms Provider Primary Care Provi mitch Chadwick Sauceda MD Primary Care Provider [phone] Carmela Renee NP Unavailable [phone] Encounter Details Date Type Department Care Team (Late st Contact Info) Description 01/03/2024 Clinisync Result Encounter [facility] External Department Unsolicited Carmela Renee NP [address] [place] [address] Social History Tobacco Use Types Packs/Day Years [...] declined 10/04/2023 How often do you attend confucianism or zoroastrian serv ices? Never 10/04/2023 Do you belong to any clubs o r organizations such as confucianism groups, unions, fraternal or athletic groups, or [...] Recorded Patient Health Questionnaire-2 Score 4 10/07/2023 [facility] Questionnaire Answer Date [...] place to sleep or slept in a halfway (including now)? No 10/04/2023 Comments Unknown Sex [...] PM EDT Narrative 01/03/2024 12:58 [place] [address] Mammography Report Signed Patient: Henrietta Cabrales MR#: [id number] : 1980 Acct:[id number] Age/Sex: 43 / F ADM Date: 01/03/24 Loc: MAMMO Attending Dr: Carmela Renee NP Ordering Physician: Carmela Renee NP Results: Date of Service: 01/03/24 Follow Up: Procedure(s): MM tomosynthesis screening BI Accession Number(s): [id number] cc: Carmela Renee NP Patient Name: HENRIETTA CABRALES MR#: [id number] : 1980 Exam Date: 01/03/2024 Ordering Doctor: [...] Treatments None Family Cancers None LOCATION: [facility] BREAST COMPOSITION: There are scattered areas [...] Signed By: 01/03/24 1258 DD/ 1257 TD/TT: Tennis Desk Team Member: Procedure Note Radiology, Radiologist, MD - 01/03/2024 [place] [address] Mammography Report Signed Patient: Henrietta Cabrales JMR#: [id number] : 1980Acct:[id number] Age/Sex: 43 / FADM Date: 01/03/24 Loc: MAMMO Attending Dr: Carmela Renee NP Ordering Physician: Carmela Renee NPResults: Date of Service: 01/03/24Follow Up: Procedure(s): MM tomosynthesis screening BI Accession Number(s): [id number] cc: Carmela Renee NP Patient Name: HENRIETTA CABRALES MR#: [id number] : 1980 Exam Date: 01/03/2024 Ordering Doctor: [...] Treatments None Family Cancers None LOCATION: [facility] BREAST COMPOSITION: There are scattered areas [...] M.D. Signed By:01/03/24 1258 DD/ 1257 TD/TT: Tennis Desk Team Member: us Carmela Renee NP [facility] Final Result documented in this encounter Visit Diagnoses Not on filedocumented in this encounter Additional Health Concerns Assessment Noted Time PHQ-9 Depression Total Score: 8 10/07/19 24 2:12 PM EDT documented as of this encounter Care Teams Board Mixer Tender Relationship Specialty Start Date End Date Unallocated, Noms ProviderMD [address] [place] [address] PCP - General Family Medicine 04/08/24 04/22/24 Chadwick Sauceda MD [address] [place] [address] PCP - General Family Medicine 04/23/24 Carmela Renee NP [address] [place] [address] [facility] Carmela Renee NP Referring Physician Nurse Practitioner 01/09/23 Carmela Renee NP Primary Care Provider Family Medicine 10/07/23 documented as of this encounter
--- OUTSIDE RECORDS SUMMARY | 2025-03-09 11:21 | XMS_ITS | Encounter Summary ---
Author Organization [facility] Address [address] [place] [address] Care Team Providers Care Television Repair Teacher Name Role Phone Chadwick Sauceda MD Primary Care Provider [phone] Carmela Renee ENDORSEMENT CLERK Unavailable [phone] Carmela Renee ENDORSEMENT CLERK Unavailable [phone] Unallocated, Noms Provider Primary Care Provi imtch Chadwick Sauceda MD Primary Care Provider [phone] Carmela Renee ENDORSEMENT CLERK Unavailable [phone] Encounter Details Date Type Department Care Team (Late st Contact Info) Description 06/24/2023 Abstract [facility] [address] [place] [address] Carmela Renee ENDORSEMENT CLERK [address] [place] [address] Social History Tobacco Use Types Packs/Day Years [...] on filedocumented in this encounter Care Teams Television Repair Teacher Relationship Specialty Start Date End Date Chadwick Sauceda MD PCP - General Family Medicine 01/09/23 10/06/23 Unallocated, Noms MD [address] [place] [address] PCP - General Family Medicine 04/08/24 04/22/24 Chadwick Sauceda MD [address] [place] [address] PCP - General Family Medicine 04/23/24 Carmela Renee NP [address] [facility] [place] [address] PCP - [facility] 09/22/24 Carmela Renee NP Referring Physician Nurse Practitioner 01/09/23 Carmela Renee NP Primary Care Provider Family Medicine 10/07/23 documented as of this encounter
--- OUTSIDE RECORDS SUMMARY | 2025-03-09 11:21 | XMS_ITS | Clinical Summary ---
Author Organization [facility] Address [address] [place], [place] [address] Care Team Providers Care Die Cutter Name Role Phone YeyohaleykerenJenn avinalexy Mercado CNP Primary Care Provider Social History Tobacco Use Types Packs/Day Years Used Date Smoking Tobacco: Never Assessed PHQ-2 Answer Date Recorded PHQ-2 score 3 11/24/2019 Area Deprivation Index Answer Date Grzegorz rded National Score (1-100), lower number is lower ri sk Not on file 06/03/2020 State Score (1-10), lower number is lower risk N ot on file 06/03/2020 Data from: https://www.neighborhoodatlas.medicine.[facility]/. Last address used for calculation Not [...] Vaccine (#1) 2025 Insurance [employer] Care Teams Die Cutter Relationship Specialty Start Date End Date Carmela Renee, SECURITY ADVISOR PCP - General Family Medicine 10/28/19
--- OUTSIDE RECORDS SUMMARY | 2025-03-09 11:21 | XMS_ITS | Clinical Summary ---
Author Organization [facility] Address [id number] [address] [place] [address] Care Team Providers Care Supervisor [employer] Name Role Phone Unavailable Primary Care Provider [...]
--- OUTSIDE RECORDS SUMMARY | 2025-03-09 11:21 | XMS_ITS | Patient Health Record ---
Author Organization [facility] Address [address] [place] [address] Care Team Providers Care Academic Support Assistant Name Role Phone None, Unknown or Primary Care Provider Unavailab le Reason For Referral No Information Plan Of Treatment No Information Insurance Providers Payer Name Payer Address Payer Phone Subscriber Number Group Number Insured Name Patient Relationship to Insured Coverage Start Date Coverage End Date SELF PAY ON PATIENT DEMOGRAPHICS Henrietta Garcia Self - patient is the insured 8
--- OUTSIDE RECORDS SUMMARY | 2025-03-09 11:21 | XMS_ITS | Encounter Summary ---
Author Organization [facility] Address [address] [place] [address] Care Team Providers Care Correctional Cook Name Role Phone Carmela Renee ON AIR HOST Unavailable [phone] Carmela Renee ON AIR HOST Unavailable [phone] Unallocated, Noms Provider Primary Care Provi mitch Chadwick Sauceda MD Primary Care Provider [phone] Carmela Renee ON AIR HOST Unavailable [phone] Encounter Details Date Type Department Care Team (Late st Contact Info) Description 01/06/2024 Orders Only [facility] [address] [place] [address] Carmela Renee ON AIR HOST [address] [place] [address] Social History Tobacco Use Types Packs/Day Years [...] declined 10/04/2023 How often do you attend jain or church serv ices? Never 10/04/2023 Do you belong to any clubs o r organizations such as jain groups, unions, fraternal or athletic groups, or [...] Recorded Patient Health Questionnaire-2 Score 4 10/07/2023 [facility] - Occupational Stress Questionnaire Answer Date Recorded [...] place to sleep or slept in a intermediate (including now)? No 10/04/2023 Comments Unknown Sex [...] documented as of this encounter Care Teams Correctional Cook Relationship Specialty Start Date End Date Unallocated, Noms MD [address] [place] [address] PCP - General Family Medicine 04/08/24 04/22/24 Chadwick Sauceda MD [address] [facility] [address] PCP - General Family Medicine 04/23/24 Carmela Renee NP [address] [place] [address] [facility] Carmela Renee NP Referring Physician Nurse Practitioner 01/09/23 Carmela Renee NP Primary Care Provider Family Medicine 10/07/23 documented as of this encounter
--- OUTSIDE RECORDS SUMMARY | 2025-03-09 11:47 | XMS_ITS | CCD ---
Author Organization [facility] Care Team Providers Care Windows Mobile Developer Name Role Phone Unavailable Primary Care Provider UnavailHARJINDER Hagan Referring Unavailable AICHHOLZ, CARMELA J. Referring Unavailable AICHHOLZ, CARMELA J. Primary Care Unavailable Aichholz, Carmela J. Primary Care Provider Lesly Snider Unavailable AICHHOLZ, CONTACT CENTER REPRESENTATIVE CARMELA Admitting Unavailable AICHHOLZ, CONTACT CENTER REPRESENTATIVE CARMELA Attending Unavailable AICHHOLZ, CONTACT CENTER REPRESENTATIVE CARMELA Primary Care Unavailable AICHHOLZ, CONTACT CENTER REPRESENTATIVE CARMELA Consulting Unavailable AICHHOLZ, CONTACT CENTER REPRESENTATIVE CARMELA Admitting Unavailable AICHHOLZ, CONTACT CENTER REPRESENTATIVE CARMELA Attending Unavailable AICHHOLZ, CONTACT CENTER REPRESENTATIVE CARMELA Primary Care Unavailable AICHHOLZ, CONTACT CENTER REPRESENTATIVE CARMELA Consulting Unavailable AICHHOLZ, CONTACT CENTER REPRESENTATIVE CARMELA Admitting Unavailable AICHHOLZ, CONTACT CENTER REPRESENTATIVE CARMELA Attending Unavailable AICHHOLZ, CONTACT CENTER REPRESENTATIVE CARMELA Primary Care Unavailable WAYNE, DR WILLY Gonsales Consulting Unavailable AICHHOLZ, CONTACT CENTER REPRESENTATIVE CARMELA Consulting Unavailable AICHHOLZ, CONTACT CENTER REPRESENTATIVE CARMELA Admitting Unavailable AICHHOLZ, CONTACT CENTER REPRESENTATIVE CARMELA Attending Unavailable AICHHOLZ, CONTACT CENTER REPRESENTATIVE CARMELA Primary Care Unavailable AICHHOLZ, CONTACT CENTER REPRESENTATIVE CARMELA Consulting Unavailable AICHHOLZ, CONTACT CENTER REPRESENTATIVE CARMELA Admitting Unavailable AICHHOLZ, CONTACT CENTER REPRESENTATIVE CARMELA Attending Unavailable AICHHOLZ, CONTACT CENTER REPRESENTATIVE CARMELA Primary Care Unavailable AICHHOLZ, CONTACT CENTER REPRESENTATIVE CARMELA Consulting Unavailable DR CAMI PASCAL Consulting Unavailable KARASIK ., DR JOHNSON Admitting Unavailabl e KARASIK ., DR JOHNSON Attending Unavailabl e AICHHOLZ, CONTACT CENTER REPRESENTATIVE CARMELA Primary Care Unavailable KARASIK ., DR JOHNSON Consulting Unavailabl e REQUEST, DR HINDS LISTED Admitting Unavaila ble REQUEST, DR HINDS LISTED Attending Unavaila ble AICHHOLZ, CONTACT CENTER REPRESENTATIVE CARMELA Primary Care Unavailable REQUEST, NONE LISTED Consulting Unavaila ble KARASIK ., DR JOHNSON Admitting Unavailabl e CAMPOS ., DR JOHNSON Attending Unavailabl e AICHHOLZ, CONTACT CENTER REPRESENTATIVE CARMELA Primary Care Unavailable CAMPOS ., DR JOHNSON Consulting UnavailALEJANDRO Vargas Consulting Unavailable Komal VASQUEZ, [place] Primary Care Provider Aichholz DEHYDRATION UNIT OPERATOR, Carmela Unavailable Aichholz DEHYDRATION UNIT OPERATOR, Carmela Unavailable Komal VASQUEZ, Chadwick Primary Care Provider Aichholz DEHYDRATION UNIT OPERATOR, Carmela Unavailable Aichholz DEHYDRATION UNIT OPERATOR, Carmela Unavailable Komal VASQUEZ, Chadwick Primary Care Provider AICHHOLZ, CARMELA Attending Unavailable AD CARMONA Attending Unavailable AICHHOLZ, CARMELA Referring Unavailable AD CARMONA Referring Unavailable AICHHOLZ, CARMELA Attending Unavailable AD CARMONA Attending Unavailable AICHHOLZ, CARMELA Attending Unavailable AICHHOLZ, CARMELA Attending Unavailable AICHHOLZ, CARMELA Attending Unavailable AICHHOLZ, CARMELA Attending Unavailable AICHHOLZ, CARMELA Attending Unavailable Aichholz DEHYDRATION UNIT OPERATOR, Carmela Unavailable Carmela Renee J Primary Care Provider Carmela Renee Attending Provider Allergies Allergy Classification Reported Allergen(s) Allergy Type Date of Onset Reaction(s) Facility (2 sources) Latex Propensity to adverse reactions 09-23-19 22 severe rash [facility] (19 sources) Sertraline Drug Allergy 09-23-19 22 Hallucinations [facility] Other (1 source) Acetaminophen / HYDROcodone Drug Allergy 12-28-19 13 [facility] (1 source) Latex Drug allergy (disorder) 12-28-19 13 [facility] (1 source) Sertraline Drug Allergy 12-28-19 13 [facility] (17 sources) Acetaminophen / HYDROcodone Drug Allergy 05-03-20 23 Hallucinations [facility] (17 sources) Latex Propensity to adverse reactions 05-03-20 23 Rash [facility] (1 source) Acetaminophen / HYDROcodone Drug Allergy 03-03-20 25 Hallucinating [facility] Medications Current Medications Medication Drug Class(es) Dates Sig (Normalized) Sig (Original) ARIPiprazole 20 mg oral tablet (20 sources) Atypical Antipsychotic Start: 03-03-2025 take 1 tablet by mouth once daily Aripiprazole 20 mg tablet Active 20 MG PO Daily March 03, 2025 12:00am Complies with drug therapy Start: 10-07-2023 End: 11-08-2024 take 1 tablet by mouth once daily ARIPiprazole (Abilify) 20 MG tablet Indications: Bipolar disorder, unspecified (HCC) Take 1 tablet (20 mg) by mouth Daily 90 tablet 1 08/10/2024 Active take 1 tablet by ysabel th in the morning ARIPiprazole (Abilify) 20 MG [...] 08/20/2024 Active cetirizine hydrochloride 10 mg oral capsule (20 sources) Histamine-1 Receptor Antagonist Start: 03-03-2025 take 1 capsule by mouth once daily as needed Start: 04-08-2024 End: 11-08-2024 take 1 tablet by mouth once daily cetirizine (ZyrTEC) 10 MG tablet Indications: Environmental and seasonal allergies Take 1 tablet (10 mg) by mouth Daily 90 tablet 1 08/10/2024 Active take 1 tablet by ysabel th once daily cetirizine (ZyrTEC) 10 MG tablet Take 10 mg by mouth Daily Active take 5 mg by mouth i n the morning cetirizine (ZyrTEC) 10 MG tablet Take 5 mg by mouth in the morning. 0 Active fluconazole 150 mg oral tablet (12 sources) Azole Antifungal Start: 03-03-2025 Fluconazole 1 50 mg tablet Active 150 MG PO Q3D March 03, 2025 12:00am Complies with drug therapy Start: 12-16-2024 fluconazole (D iflucan) 150 MG tablet Indications: Sebaceous cyst of [...] tablet (20 sources) Serotonin Reuptake Inhibitor Start: 03-03-2025 take 1 tablet by mouth twice daily Fluvoxamine 100 mg tablet Active 150 MG PO Twice daily March 03, 2025 12:00am Complies with drug therapy Start: 10-07-2023 End: 11-08-2024 take 1.5 tablets [...] tablet Indications: Obsessive-compulsive disorder, unspecified (CMS/HCC) , RINA (generalized anxiety disorder) (CMS/HCC) Take 1.5 tablets (150 mg) by mouth in the morning and 1.5 tablets (150 mg) before bedtime. 270 tablet 1 05/31/2023 08/29/2023 Active fluvoxaMINE Male ate Active hydrocortisone 10 mg/ml / neomycin 3.5 mg/ml / polymyxin b 44900 unt/ml otic suspension (1 source) Aminoglycoside Antibacterial, Polymyxin-class Antibacterial, Corticosteroid Start: 09-22-2021 Szaroqav-Msltugaoh-OF 3.5-01689-2 3 drops left ear Three times a day for 7 days Sep, Active hydrOXYzine pamoate 25 mg oral capsule (20 sources) Antihistamine Start: 03-03-2025 take 1 capsule by mouth twice daily as needed Hydroxyzine Pamoate (Vistaril) 25 mg capsule Active 25 MG PO Twice daily as needed March 03, 2025 12:00am Complies with drug therapy Start: 04-08-2024 End: 11-08-2024 take 1 capsule [...] mg oral tablet (20 sources) l-Thyroxine Start: 03-03-2025 take 1 tablet by mouth once daily Levothyroxine 137 mcg tablet Active 137 MCG PO Daily March 03, 2025 12:00am Complies with drug therapy Start: 07-30-2023 End: 11-08-2024 take 1 tablet by mouth once daily levothyroxine (Synthroid, Levoxyl) 137 MCG tablet Indications: Hypothyroidism, unspecified Take 137 mcg by mouth Daily 90 tablet 1 08/10/2024 Active take 1 capsule by mo uth before mealtime levothyroxine (Tirosint) 137 MCG capsule Take 137 [...] Date Documented Da te Episodic/Chronic Allergic reactions (18 sources) Atopic dermatitis; Translations: [Intrinsic (allergic) eczema] Onset: 05-23-2023 05-23-2023 Chronic Anxiety disorders (20 sources) Generalized anxiety disorder; Translations: [Generalized anxiety disorder] Onset: 05-23-2023 05-23-2023 Chronic Mood disorders (20 sources) Bipolar disorder, unspecified; Translations: [Bipolar disorder, most recent episode depression] Onset: 03-08-2022 Resolved: 08-10-2024 08-16-2023 Chronic Other connective tissue disease (1 source) Ganglion of wrist; Translations: [Ganglion, unspecified wrist] 03-03-2025 Episodic Other inflammatory condition of skin (16 sources) Generalized pruritus ; Translations: [Pruritus, unspecified] Onset: 04-08-2024 04-08-2024 Episodic Other non-traumatic joint disorders (2 sources) Pain [...] 40.0-44.9, adult] Onset: 01-20-2024 01-20-2024 Chronic Other screening for suspected conditions (not mental disorders or infectious disease) (20 sources) Other abnormal and inconclusive findings on diagnostic imaging of breast; Translations: [Encounter for screening mammogram for malignant neoplasm of breast] Onset: 12-14-2021 Episodic Other skin disorders (15 sources) Sebaceous cyst of skin; Translations: [Sebaceous cyst] Onset: 08-10-2024 08-10-2024 Episodic Other skin disorders (4 sources) Eruption; Translations: [Rash and other nonspecific skin eruption] Onset: 12-16-2024 12-16-2024 Episodic Other upper respiratory disease (20 sources) Allergic disposition; Translations: [Other allergic rhinitis] Onset: 04-08-2024 04-08-2024 Chronic Other upper respiratory infections (2 sources) Acute maxillary sinusitis; Translations: [Acute maxillary sinusitis, unspecified] Onset: 09-15-2024 09-15-2024 Episodic Thyroid disorders (20 sources) Hypothyroidism, unspecified; Translations: [...] left ear Onset: 09-22-2021 Resolved: 09-22-2021 Episodic Residual codes; unclassified (1 source) Procedure [...] Impression: No acute bony process Right W[facility] Study observation (narrative) [facility] FREE T4on 08-06-2022 Free T4 [Mass/Vol] 1.35 ng/dL Normal 0.76-1.46 [facility] Comment on above: Performed By: #### F T4 #### [facility] [address] [address] [address] Steve Oliveros TSHon 08-06-2022 TSH 0.319 uIU/mL Critically low 0.358-3.740 [facility] Comment on above: Performed By: #### T SH ####[facility] [id number] [place], [place] [address]UxDr. Steve Oliveros FREE T4on 05-29-2022 Free T4 [Mass/Vol] 1.15 ng/dL Normal 0.76-1.46 [facility] Comment on above: Performed By: #### F T4 #### [facility] [address] [address] [address] Steve Oliveros TSHon 05-29-2022 TSH 5.149 uIU/mL Critically high 0.358-3.740 [facility] Comment on above: Performed By: #### T SH #### [facility] [address] [address] [address] Steve Oliveros URon 03-02-2022 , QUAL Negative Normal NEGATIVE [facility] Comment on above: Performed By: #### P REGU #### [facility] [address] [place], [place] [address] Dr. Steve Oliveros Covid-19 PCR (CVDTB)on SARS-CoV-2 (COVID-19) RNA ZI+probe Ql (Unsp spec) Not detected Normal NOT DETECTED [facility] Comment on above: Result Comment: When [...] for this test is supported by the Senior Administrative Assistant of Health and Human Service's declaration that [...] longer be used). Performed By: #### C VDTB ####[facility] [id number] [place], [place] [address]WfDr. Steve Oliveros MG MAMM RT DIAG FUon 022 MG MAMM RT DIAG FU Patient: HENRIETTA GARCIA Exam Date: 12/27/2021 : 1980 Gender:F Ordering : KENYETTA RENEE [facility] REPRESENTATIVE Admission #: [id number] Family : Order #: [id number] CLICK HERE TO VIEW EXAM RADIOLOGY REPORT [...] Treatments None Family Cancers None LOCATION: [facility] BREAST COMPOSITION: Scattered areas fibroglandular density. [...] PALPABLE LUMP SHOULD BE BIOPSIED. Dictated by: Cami Pascal M.D. on 12/27/2021 at 10:27 Approved by: Cami Pascal M.D. on 12/27/2021 at 10:30 Normal [facility] MG MAMM SCREEN 3D OLI CADon 12-18-2021 MG MAMM SCREEN 3D OLI CAD Patient: HENRIETTA GARCIA Exam Date: 12/18/2021 : 1980 Gender:F Ordering : KENYETTA RENEE [facility] Admission #: [id number] Family : Order #: [id number] CLICK HERE TO VIEW EXAM RADIOLOGY REPORT PROCEDURE: MAMMOGRAM SCREENING 3D BILATERAL CAD COMPARISON: None. INDICATIONS: Screening Calculator Name NCI Breast Cancer Risk Assessment Tool 5 Year Breast Cancer Risk 0.80% Lifetime Breast Cancer Risk 10.80% Personal Breast Cancer No Personal Ovarian Cancer No Treatments None Family Cancers None LOCATION: [facility] BREAST COMPOSITION: Scattered areas fibroglandular density. [...] Soto MD on 12/18/2021 at 12:55 Normal [facility] PAP ACOG PANEL 2: 30 to 65on 12-17-2021 . . Normal [facility] Comment on above: Result Comment: Perf ormed at: WB Performed By: #### [id number] #### [facility] [address] [address] [address] Steve Oliveros Age Gdln ACOG Testing 30-65 [facility] Comment on above: Performed By: #### [id number] #### [facility] [address] [address] [address] Steve Oliveros DIAGNOSIS: Comment Normal [facility] Comment on above: Result Comment: NEGA TIVE FOR INTRAEPITHELIAL LESION OR MALIGNANCY. Performed at: WB Performed By: #### [id number] #### [facility] [address] [address] [address] Steve Oliveros HPV Aptima Negative Normal Negative [facility] Comment on above: Result Comment: This nucleic acid amplification test detects fourteen high-risk HPV types (16,18,31,33,35,39,45,51,52,56,58,59,66,68) without differentiation. Performed at: =G Performed By: #### [id number] #### [facility] [address] [address] [address] Steve Oliveros Methodology: Comment [facility] Comment on above: Result Comment: This liquid based ThinPrep(R) pap test was screened with the use of an image guided system. Performed at: WB Performed By: #### [id number] #### [facility] [address] [address] [address] Steve Oliveros Note: Comment [facility] Comment on above: Result Comment: The Pap smear is a screening test designed to aid in the detection of premalignant and malignant conditions of the uterine cervix. It is not a diagnostic procedure and should not be used as the sole means of detecting cervical cancer. Both false-positive and false-negative reports do occur. . Performed at: WB Performed By: #### [id number] #### [facility] [address] [address] [address] Steve Oliveros Performed by: Comment Normal [facility] Comment on above: Result Comment: Slime ot Mandie, Suction Plate Carrier Cleaner (ASCP) Performed at: WB Performed By: #### [id number] #### [facility] [address] [place] [address] Dr. Steve Oliveros Specimen adequacy: Comment Normal [facility] Comment on above: Result Comment: Sati sfactory for evaluation. Endocervical and/or squamous metaplastic cells (endocervical component) are present. Performed at: WB Performed By: #### [id number] #### [facility] [address] [place] [address] Dr. Steve Oliveros CBC AUTO DIFFon 11-28-2021 BASO # 0.0 103/ul Normal 0.0-0.1 [facility] Comment on above: Performed By: #### D ATCBC #### [facility] [address] [place] [address] Dr. Steve Oliveros Basophils/100 WBC (Bld) 0.6 % Normal 0.2-2.0 [facility] Comment on above: Performed By: #### D ATCBC #### [facility] [address] [place] [address] Dr. Steve Oliveros EO # 0.1 103/ul Normal 0.0-0.7 [facility] Comment on above: Performed By: #### D ATCBC #### [facility] [address] [place] [address] Dr. Steve Oliveros Eosinophils/100 WBC (Bld) 1.5 % Normal 0.9-7.0 [facility] Comment on above: Performed By: #### D ATCBC #### [facility] [address] [place] [address] Dr. Steve Oliveros Erythrocyte distribution width (RBC) [Ratio] 12.3 % Normal 11.0-15.0 [facility] Comment on above: Performed By: #### D ATCBC #### [facility] [address] [place] [address] Dr. Steve Oliveros Hematocrit (Bld) [Volume fraction] 42.5 % Normal 36.0-48.0 [facility] Comment on above: Performed By: #### D ATCBC #### [facility] [address] [address] [address] Steve Oliveros Hemoglobin (Bld) [Mass/Vol] 13.7 g/dL Normal 12.0-16.0 [facility] Comment on above: Performed By: #### D ATCBC #### [facility] [address] [address] [address] Steve Oliveros IG # 0.02 10e3/ul Normal 0.00-0.03 [facility] Comment on above: Performed By: #### D ATCBC #### [facility] [address] [address] [address] Steve Oliveros IG % 0.3 % Normal 0.0-0.5 [facility] Comment on above: Performed By: #### D ATCBC #### [facility] [address] [place] [address] Dr. Steve Oliveros LYMPH # 1.8 103/ul Normal 1.2-3.8 [facility] Comment on above: Performed By: #### D ATCBC #### [facility] [address] [place] [address] Dr. Steve Oliveros Lymphocytes/100 WBC (Bld) 24.4 % Normal 20.5-60.0 [facility] Comment on above: Performed By: #### D ATCBC #### [facility] [address] [place] [address] Dr. Steve Oliveros MCH (RBC) [Entitic mass] 28.1 pg Normal 26.7-34.0 [facility] Comment on above: Performed By: #### D ATCBC #### [facility] [address] [place] [address] Dr. Steve Oliveros MCHC (RBC) [Mass/Vol] 32.2 g/dL Normal 29.9-35.2 [facility] Comment on above: Performed By: #### D ATCBC #### [facility] [address] [place] [address] Dr. Steve Oliveros MCV (RBC) [Entitic vol] 87.3 fL Normal 81.0-99.0 [facility] Comment on above: Performed By: #### D ATCBC #### [facility] [address] [address] [address] Steve Oliveros MONO # 0.5 103/ul Normal 0.3-0.8 [facility] Comment on above: Performed By: #### D ATCBC #### [facility] [address] [address] [address] Steve Oliveros Monocytes/100 WBC (Bld) 6.6 % Normal 1.7-12.0 [facility] Comment on above: Performed By: #### D ATCBC #### [facility] [address] [address] [address] Steve Oliveros NEUT # 4.8 103/ul Normal 1.4-6.5 [facility] Comment on above: Performed By: #### D ATCBC #### [facility] [address] [place] [address] Dr. Steve Oliveros Neutrophils/100 WBC (Bld) 66.6 % Normal 43.0-75.0 [facility] Comment on above: Performed By: #### D ATCBC #### [facility] [address] [place] [address] Dr. Steve Oliveros Platelet mean volume (Bld) [Entitic vol] 9.1 fL Critically low 9.5-13.5 [facility] Comment on above: Performed By: #### D ATCBC #### [facility] [address] [address] [address] Steve Oliveros PLT 301 103/ul Normal 150-450 [facility] Comment on above: Performed By: #### D ATCBC #### [facility] [address] [address] [address] Steve Oliveros RBC 4.87 106/ul Normal 4.20-5.40 [facility] Comment on above: Performed By: #### D ATCBC #### [facility] [address] [place] [address] Dr. Steve Oliveros WBC 7.2 103/ul Normal 4.0-11.0 [facility] Comment on above: Performed By: #### D ATCBC #### [facility] [address] [place] [address] Dr. Steve Oliveros ALTAGRACIA - TSHon 11-28-2021 TSH 7.045 uIU/mL Critically high 0.358-3.740 [facility] Comment on above: Performed By: #### D ATTSH, DATBMP #### [facility] [address] [address] [address] Steve Oliveros TSH RANGE SEE BELOW Normal [facility] Comment on above: Result Comment: <0.3 4 UIU/ml HYPERTHYROID 0.34-5.60 UIU/ml EUTHYROID >5.60 UIU/ml HYPOTHYROID Performed By: #### D ATTJOSE, DATBMP #### [facility] [address] [place] [address] Dr. Steve Oliveros ALTAGRACIA- BMP WITH LIPIDon 2021 Anion gap [Moles/Vol] 12.1 mmol/L Normal [facility] Comment on above: Performed By: #### D ATTSH, DATBMP #### [facility] [address] [place] [address] Dr. Steve Oliveros Calcium [Mass/Vol] 9.0 mg/dL Normal 8.5-10.1 [facility] Comment on above: Performed By: #### D ATTSH, DATBMP #### [facility] [address] [place] [address] Dr. Steve Oliveros Chloride [Moles/Vol] 105 mmol/L Normal 98-107 [facility] Comment on above: Performed By: #### D ATTSH, DATBMP #### [facility] [address] [place] [address] Dr. Steve Oliveros Cholesterol [Mass/Vol] 191 mg/dL Normal <=200 [facility] Comment on above: Performed By: #### D ATTSH, DATBMP #### [facility] [address] [place] [address] Dr. Steve Oliveros Cholesterol in HDL [Mass/Vol] 33 mg/dL Critically low 40-60 [facility] Comment on above: Performed By: #### D ATTSH, DATBMP #### [facility] [address] [address] [address] Steve Oliveros Cholesterol in LDL [Mass/Vol] 117.0 mg/dL Normal [facility] Comment on above: Performed By: #### D ATTSH, DATBMP #### [facility] [address] [address] [address] Steve Oliveros CO2 [Moles/Vol] 25.1 mmol/L Normal 21.0-32.0 [facility] Comment on above: Performed By: #### D ATTSH, DATBMP #### [facility] [address] [address] [address] Steve Oliveros Creatinine [Mass/Vol] 0.93 mg/dL Normal 0.55-1.02 [facility] Comment on above: Performed By: #### D ATTSH, DATBMP #### [facility] [address] [address] [address] Steve Oliveros EGFR-AF SCOTTISH >60 Normal >=60 [facility] Comment on above: Performed By: #### D ATTSH, DATBMP #### [facility] [address] [address] [address] Steve Oliveros EGFR-NON AF SCOTTISH >60 Normal >=60 [facility] Comment on above: Performed By: #### D ATTSH, DATBMP #### [facility] [address] [address] [address] Steve Oliveros Glucose [Mass/Vol] 91 mg/dL Normal 74-106 [facility] Comment on above: Performed By: #### D ATTSH, DATBMP #### [facility] [address] [address] [address] Steve Oliveros HDL NORMAL > or = 60 mg/dl - LO W CARDIOVASCULAR RISK <40 mg/dl - HIGH CARDIOVASCULAR RISK Normal [facility] Comment on above: Performed By: #### D ATTSH, DATBMP #### [facility] [address] [address] [address] Steve Oliveros LDL CALC NORMAL SEE BELOW Normal [facility] Comment on above: Result Comment: <100 mg/dl OPTIMAL 100 - 129 mg/dl NEAR OR ABOVE OPTIMAL 130 - 159 mg/dl BORDERLINE HIGH 160 - 189 mg/dl HIGH >190 mg/dl VERY HIGH Performed By: #### D SACHA DATBMP #### [facility] [address] [address] [address] Steve Oliveros Potassium [Moles/Vol] 4.2 mmol/L Normal 3.5-5.1 [facility] Comment on above: Performed By: #### D SACHA DATBMP #### [facility] [address] [address] [address] Steve Oliveros Sodium [Moles/Vol] 138 mmol/L Normal 136-145 [facility] Comment on above: Performed By: #### D SACHA DATBMP #### [facility] [address] [place] [address] Dr. Steve Oliveros Triglyceride [Mass/Vol] 205 mg/dL Critically high <=150 [facility] Comment on above: Performed By: #### D SACHA DATBMP #### [facility] [address] [address] [address] Steve Oliveros Urea nitrogen [Mass/Vol] 10.0 mg/dL Normal 7.0-18.0 [facility] Comment on above: Performed By: #### D SACHA DATBMP #### [facility] [address] [place] [address] Dr. Steve Oliveros Urea nitrogen/Creatinine [Mass ratio] 10.8 mg/mg Normal [facility] Comment on above: Performed By: #### D SACHA, DATBMP #### [facility] [address] [place] [address] Dr. Steve Oliveros VLDL CALC 41.0 mg/dL Normal [facility] Comment on above: Performed By: #### D SACHA DATBMP #### [facility] [address] [place] [address] Dr. Steve Oliveros CBC Auto Differentialon - Basophils (Bld) [#/Vol] 0.07 10*3/uL [employer] Work Phone: Basophils/100 WBC (Bld) 1 % 0 - 2 % [employer] Phone: Differential Type NOT REPORTED [employer] Phone: Eosinophils (Bld) [#/Vol] 0.22 10*3/uL [employer] Phone: Eosinophils/100 WBC (Bld) 2 % 1 - 4 % [employer] Phone: Erythrocyte distribution width (RBC) [Ratio] 13.0 % 11.8 - 14.4 % [employer] Phone: Hematocrit (Bld) [Volume fraction] 43.3 % 36.3 - 47.1 % [employer] Phone: Hemoglobin (Bld) [Mass/Vol] 13.6 g/dL 11.9 - 15.1 g/dL [employer] Phone: Immature granulocytes (Bld) [#/Vol] 0.05 10*3/uL [employer] Phone: Immature granulocytes (Bld) [#/Vol] 0 % 0 [employer] Phone: Interpretation and review of laboratory results Abnormal [employer] Phone: Lymphocytes (Bld) [#/Vol] 2.56 10*3/uL [employer] Phone: Lymphocytes/100 WBC (Bld) 23 % Low 24 - 43 % [employer] Phone: MCH (RBC) [Entitic mass] 27.0 pg 25.2 - 33.5 pg [employer] Phone: MCHC (RBC) [Mass/Vol] 31.4 g/dL 28.4 - 34.8 g/dL [employer] Phone: MCV (RBC) [Entitic vol] 86.1 fL 82.6 - 102.9 fL [employer] Phone: Monocytes (Bld) [#/Vol] 1.01 10*3/uL [employer] Work Phone: Monocytes/100 WBC (Bld) 9 % 3 - 12 % [employer] Work Phone: Platelet mean volume (Bld) [Entitic vol] 9.5 fL 8.1 - 13.5 fL [employer] Work Phone: Platelets (Bld) [#/Vol] NOT REPORTED [employer] Work Phone: Platelets (Bld) [#/Vol] 300 10*3/uL [employer] Work Phone: RBC (Bld) [#/Vol] 5.03 10*6/uL 3.95 - 5.1 1 m/uL [employer] Work Phone: RBC morphology finding Nom (Bld) NOT REPORTED [employer] Work Phone: Segmented neutrophils/100 WBC (Bld) 65 % 36 - 65 % [employer] Work Phone: Segs Absolute 7.39 [employer] [facility] Work Phone: WBC (Bld) [#/Vol] 11.3 10*3/uL [employer] Work Phone: WBC (Bld) [#/Vol] 0.0 10*3/uL 0.0 per 10 0 WBC [employer] Work Phone: WBC Morphology NOT REPORTED [employer] [facility] Work Phone: CBC with Diffon 08-12-2020 Abs. Basophil 0.07 k/uL Normal 0.00-0.20 [facility] Comment on above: Performed By: #### C DP, CP, TSH #### [facility] [address] [place] [address] [employer] Operator: Willy Jasmine MD #### FT4, LIPR #### [address] [place], [place] [phone] [employer] Operator: Tr Bullard MD Abs.Imm.Granulocyte 0.05 k/uL Normal 0.00-0.[address] [facility] Comment on above: Performed By: #### C DP, CP, TSH #### [facility] [address] [place] [address] [phone] [employer] Operator: Willy Jasmine MD #### FT4, LIPR #### [address] [phone] [employer]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 03-03-2025 13:16-0400 Body mass index (BMI) [Ratio] 39.2 kg/m2 Carmela Aichholz Work Phone: [facility] 03-03-2025 13:16-0400 Body temperature 97.3 [degF] Carmela Aichholz Work Phone: [facility] 03-03-2025 13:16-0400 Body weight 100.35 kg Carmela Aichholz Work Phone: [facility] 03-03-2025 13:16-0400 Diastolic blood pressure 76 mm[Hg] Carmela Aichholz Work Phone: [facility] 03-03-2025 13:16-0400 Heart rate 81 /min Carmela Aichholz Work Phone: [facility] 03-03-2025 13:16-0400 Respiratory rate 18 /min Carmela Aichholz Work Phone: [facility] 03-03-2025 13:16-0400 SaO2% (BldA) [Mass fraction] 96 % Carmela Aichholz Work Phone: [facility] 03-03-2025 13:16-0400 Systolic blood pressure 122 mm[Hg] Carmela Aichholz Work Phone: [facility] 09-01-2024 14:47-0400 Body mass index (BMI) [Ratio] 39.89 kg/m2 Carmela Aichholz DEHYDRATION UNIT OPERATOR Work Phone: [facility] 09-01-2024 14:47-0400 Body temperature 98.49 [degF] Carmela Aichholz DEHYDRATION UNIT OPERATOR Work Phone: [facility] 09-01-2024 14:47-0400 Body weight 102.15 kg Carmela Sarahz DEHYDRATION UNIT OPERATOR Work Phone: [facility] 09-01-2024 14:47-0400 Diastolic blood pressure 76 mm[Hg] Carmela Aichholz DEHYDRATION UNIT OPERATOR Work Phone: [facility] 09-01-2024 14:47-0400 Heart rate 72 /min Carmela Aichholz DEHYDRATION UNIT OPERATOR Work Phone: [facility] 09-01-2024 14:47-0400 Respiratory rate 18 /min Carmela Aichholz DEHYDRATION UNIT OPERATOR Work Phone: [facility] 09-01-2024 14:47-0400 SaO2% (BldA) [Mass fraction] 97 % Carmela Yeyohholz DEHYDRATION UNIT OPERATOR Work Phone: [facility] 09-01-2024 14:47-0400 Systolic blood pressure 120 mm[Hg] Camrela Yeyohholz DEHYDRATION UNIT OPERATOR Work Phone: [facility] 08-19-2024 08:48-0500 Body height 160 cm [place] Carmona PA Work Phone: [facility] 08-19-2024 08:48-0500 Body mass index (BMI) [Ratio] 40.74 kg/m2 [place] Carmona PA Work Phone: [facility] 08-19-2024 08:48-0500 Body weight 104.33 kg [place] Carmona PA Work Phone: [facility] 08-10-2024 08:48-0500 Body mass index (BMI) [Ratio] 41.96 kg/m2 Carmela Sarahz DEHYDRATION UNIT OPERATOR Work Phone: [facility] 08-10-2024 08:48-0500 Body temperature 98.1 [degF] Carmela Yeyohholz DEHYDRATION UNIT OPERATOR Work Phone: [facility] 08-10-2024 08:48-0500 Body weight 104.06 kg Carmela Yeyohkerenz DEHYDRATION UNIT OPERATOR Work Phone: [facility] 08-10-2024 08:48-0500 Diastolic blood pressure 76 mm[Hg] Carmela Aichholz DEHYDRATION UNIT OPERATOR Work Phone: [facility] 08-10-2024 08:48-0500 Heart rate 69 /min Carmela Aichholz DEHYDRATION UNIT OPERATOR Work Phone: [facility] 08-10-2024 08:48-0500 Respiratory rate 18 /min Carmela Aichholz DEHYDRATION UNIT OPERATOR Work Phone: [facility] 08-10-2024 08:48-0500 SaO2% (BldA) [Mass fraction] 98 % Carmela Aichholz DEHYDRATION UNIT OPERATOR Work Phone: [facility] 08-10-2024 08:48-0500 Systolic blood pressure 122 mm[Hg] Carmela Aichholz DEHYDRATION UNIT OPERATOR Work Phone: [facility] 04-08-2024 10:05-0400 Body height 157.5 cm Carmela Aichholz DEHYDRATION UNIT OPERATOR Work Phone: [facility] 04-08-2024 10:05-0400 Body mass index (BMI) [Ratio] 41.92 kg/m2 Carmela Aichholz DEHYDRATION UNIT OPERATOR Work Phone: [facility] 04-08-2024 10:05-0400 Body temperature 98.49 [degF] Carmela Aichholz DEHYDRATION UNIT OPERATOR Work Phone: [facility] 04-08-2024 10:05-0400 Body weight 103.96 kg Carmela Aichholz DEHYDRATION UNIT OPERATOR Work Phone: [facility] 04-08-2024 10:05-0400 Diastolic blood pressure 80 mm[Hg] Carmela Aichholz DEHYDRATION UNIT OPERATOR Work Phone: [facility] 04-08-2024 10:05-0400 Heart rate 89 /min Carmela Aichholz DEHYDRATION UNIT OPERATOR Work Phone: [facility] 04-08-2024 10:05-0400 Respiratory rate 18 /min Carmela Aichholz DEHYDRATION UNIT OPERATOR Work Phone: [facility] [employer] 04-08-2024 10:05-0400 SaO2% (BldA) [Mass fraction] 94 % Carmela Valleskerenloree DEHYDRATION UNIT OPERATOR Work Phone: [facility] 04-08-2024 10:05-0400 Systolic blood pressure 118 mm[Hg] Carmela Renee DEHYDRATION UNIT OPERATOR Work Phone: [facility] 09-22-2021 19:00-0400 Body height 158.12 cm Lesly Snider Other [employer] Other 09-22-2021 19:00-0400 Body mass index (BMI) [Ratio] 43 kg/m2 Lesly Snider Other [employer] Other 09-22-2021 19:00-0400 Body temperature 97.2 [degF] Lesly Snider Other [employer] Other 09-22-2021 19:00-0400 Body weight 107.5 kg Lesly Agatha Other [employer] Other 09-22-2021 19:00-0400 Diastolic blood pressure 81 mm[Hg] Lesly Snider Other [employer] Other 09-22-2021 19:00-0400 Respiratory rate 18 /min Lesly Agatha Other [employer] Other 09-22-2021 19:00-0400 SaO2% (BldA) [Mass fraction] 98 % Lesly Snider Other [employer] Other 09-22-2021 19:00-0400 Systolic blood pressure 129 mm[Hg] Lesly Snider Other [employer] Other Encounters Encounter Date Encounter Type Care Provider Facility Start: 03-03-2025 End: 03-03-2025 ambulatory Carmela Irby Yeyoezradha Work Phone: [facility] Work Phone: Start: 03-03-2025 End: 03-03-2025 Patient encounter procedure Carmela Irby Víctor DEHYDRATION UNIT OPERATOR-C [facility] Work Phone: Start: 12-16-2024 End: 12-16-2024 Refill Carmela Víctor DEHYDRATION UNIT OPERATOR Work Phone: [facility] Comment on above: Hypothyroidism, unsp ecified (Primary Dx); Sebaceous cyst of axilla; Rash Start: 09-15-2024 End: 09-15-2024 ambulatory CARMELA RENEE Not Available Start: 09-02-2024 End: 09-02-2024 ambulatory [place] CARMONA Not Available Start: 09-01-2024 End: 09-01-2024 ambulatory CARMELA GARYHOLZ Not Available Start: 09-01-2024 End: 09-01-2024 Office outpatient visit 10 minutes Carmela Víctor DEHYDRATION UNIT OPERATOR Work Phone: [facility] Comment on above: Sebaceous cyst of ax illa (Primary Dx); Morbid (severe) obesity due to excess calories (CMS/HCC) Start: 09-01-2024 End: 09-01-2024 Bamboo flowsheet Carmela Víctor DEHYDRATION UNIT OPERATOR Work Phone: [facility] Start: 09-01-2024 End: 09-01-2024 Bamboo flowsheet Carmela Renee DEHYDRATION UNIT OPERATOR Work Phone: [facility] Start: 08-19-2024 End: 08-19-2024 Bamboo flowsheet Ad HANCOCK Work Phone: [facility] Start: 08-19-2024 End: 08-19-2024 Bamboo flowsheet [place] HANCOCK Work Phone: [facility] Start: 08-19-2024 End: 08-19-2024 Office outpatient new 30 minutes [place] Carmona PA Work Phone: [facility] Comment on above: Acute pain of right wrist (Primary Dx); Ganglion cyst of wrist, right Start: 08-19-2024 End: 08-19-2024 ambulatory [place] CARMONA Not Available Start: 08-10-2024 End: 08-10-2024 Bamboo flowsheet Carmela Renee DEHYDRATION UNIT OPERATOR Work Phone: [facility] Start: 08-10-2024 End: 08-10-2024 Bamboo flowsheet Carmela Renee DEHYDRATION UNIT OPERATOR Work Phone: [facility] Start: 08-10-2024 End: 08-10-2024 ambulatory CARMELA RENEE Not Available Start: 08-10-2024 End: 08-10-2024 Office outpatient visit 25 minutes Carmela Renee NP Work Phone: [facility] Comment on above: Sebaceous cyst of ax [...] Start: 07-09-2024 End: 07-09-2024 Refill Carmela Renee DEHYDRATION UNIT OPERATOR Work Phone: [facility] Comment on above: RINA (generalized anx iety disorder) (CMS/HCC); Obsessive-compulsive disorder, unspecified (CMS/HCC); Panic attack as reaction to stress (CMS/HCC) Start: 04-08-2024 End: 04-08-2024 Bamboo flowsheet Carmela Renee DEHYDRATION UNIT OPERATOR Work Phone: [facility] Start: 04-08-2024 End: 04-08-2024 Bamboo flowsheet Carmela Renee DEHYDRATION UNIT OPERATOR Work Phone: [facility] Start: 04-08-2024 End: 04-08-2024 Office outpatient visit 15 minutes Carmela Renee DEHYDRATION UNIT OPERATOR Work Phone: [facility] Comment on above: Flea bite of multipl e sites (Primary Dx); Morbid (severe) obesity due to excess calories (CMS/HCC); Body mass index (BMI) 40.0-44.9, adult (CMS/HCC); RINA (generalized anxiety disorder) (CMS/HCC); Obsessive-compulsive disorder, unspecified (CMS/HCC); Hypothyroidism, unspecified (CMS/HCC); Bipolar disorder, unspecified (CMS/HCC); Panic attack as reaction to stress (CMS/HCC); Environmental and seasonal allergies; Generalized pruritus Start: 04-08-2024 End: 04-08-2024 ambulatory CARMELA AICHHOLZ Not Available Start: 03-06-2024 End: 03-06-2024 Refill Carmela Aichholz DEHYDRATION UNIT OPERATOR Work Phone: [facility] Comment on above: Bipolar disorder, un specified (CMS/HCC) Start: 02-24-2024 End: 02-25-2024 Refill Carmela Aichholz DEHYDRATION UNIT OPERATOR Work Phone: [facility] Comment on above: RINA (generalized anx iety disorder) (CMS/HCC); Panic attack as reaction to stress (CMS/HCC) Start: 01-21-2024 End: 01-21-2024 ambulatory CARMELA AICHHOLZ Not Available Start: 11-25-2023 End: 11-25-2023 ambulatory CARMELA AICHHOLZ Not Available Start: 10-07-2023 End: 10-07-2023 ambulatory CARMELA AICHHOLZ Not Available Start: 07-30-2023 Refill Carmela Aichholz DEHYDRATION UNIT OPERATOR Work Phone: [facility] Comment on above: Acquired hypothyroid ism (CMS/HCC) (Primary Dx); Hypothyroidism, unspecified (CMS/HCC) Start: 08-06-2022 End: 08-07-2022 ambulatory KENYETTA RENEE Facility:[facility] Start: 05-29-2022 End: 05-30-2022 ambulatory KENYETTA RENEE Facility:[facility] Start: 03-04-2022 Encounter for preprocedural laboratory examination DR ALEX GASCA . [facility] Start: 03-02-2022 End: 03-02-[address] ALEX GASCA . Facility:[facility] Start: 03-01-2022 End: 03-02-[address] ALEX GASCA . Facility:[facility] Start: 03-01-2022 End: 03-02-2022 Encounter for preprocedural laboratory examination DR ALXE GASCA . Facility:[facility] Start: 12-27-2021 End: 12-28-2021 ambulatory KENYETTA RYDER YEYOEzKERENLoree Facility:[facility] Start: 12-18-2021 End: 12-19-2021 ambulatory KENYETTA RENEE Facility:[facility] Start: 12-14-2021 End: 12-14-2021 ambulatory KENYETTA RENEE Facility:[facility] Start: 11-28-2021 End: 11-29-[address] HINDS LISTED REQUEST Facility:[facility] Start: 09-22-2021 End: 09-22-2021 ambulatory Lesly Snider Other [facility] Other Start: 09-22-2021 Office outpatient ne w 20 minutes Lesly Snider [facility] Start: 08-12-2020 End: 08-13-2020 Patient encounter procedure CARMELA IrbyKirill [facility] Start: 08-12-2020 End: 08-12-2020 Subsequent hospital visit by [facility] Start: 04-25-2020 End: 04-26-2020 Patient encounter procedure HARJINDER [facility] Start: 04-25-2020 End: 04-25-2020 Subsequent hospital visit by physician NANCY Laboratory Procedures Date Procedure Procedure Detail Performing Clinician Start: 08-19-2024 Radex wrist 2 views Mat melba Carmona PA Work Phone: Start: 01-06-2024 Mammography Carmela Meek ashli DEHYDRATION UNIT OPERATOR Work Phone: Start: 01-01-2023 Mammography Carmela Meek ashli DEHYDRATION UNIT OPERATOR Work Phone: Start: 12-14-2021 Microscopic observat ion [Identifier] in Cervix by Cyto stain Carmela Víctor DEHYDRATION UNIT OPERATOR Work Phone: Start: 08-12-2020 Assay of free thyroxine Carmela Abreu Yeyoezradha Work Phone: Start: 08-12-2020 Assay of thyroid stimulating hormone tsh Carmela Abreu Yeyoezradha Work Phone: Start: 08-12-2020 Blood count complete auto&auto difrntl wbc Carmela Abreu Yeyoezradha Work Phone: Start: 08-12-2020 Comprehensive metabo lic panel Carmela Abreu Yeyoezradha Work Phone: Start: 08-12-2020 Lipid panel Carmela Abreu Shelley sims Work Phone: Start: 04-25-2020 Antibody mumps HARJINDER DIAMOND Start: 04-25-2020 Antibody rubella LINDSA Y DIAMOND Start: 04-25-2020 Antibody rubeola LINDSA Y DIAMOND Start: 04-25-2020 Antibody varicella-zoster HARJINDER DIAMOND Start: 04-25-2020 Hepatitis b surf ant ibody hbsab HARJINDER DIAMOND Start: 04-25-2020 Antibody rubella Lindsa y Diamond Work Phone: Start: 04-25-2020 Hepatitis b surf ant ibody hbsab Harjinder Diamond Work Phone: Plan of Treatment Date Care Activity Detail Author Start: 10-18-2026 Screening for malign ant neoplasm of colon [facility] Start: 03-03-2025 End: 03-03-2025 Patient encounter procedure 03/03/2025 1:00 PM EDT Office Visit [facility] [address] [place] [phone] Carmela Renee, DEHYDRATION UNIT OPERATOR [address] [place] [address] [facility] Start: 01-05-2025 Screening for malign ant neoplasm of breast Mammogram [facility] Start: 12-14-2024 Screening for malign ant neoplasm of cervix [facility] Start: 09-02-2024 End: 09-02-2024 Patient encounter procedure 09/02/2024 10:30 AM EDT Office Visit [facility] [address] [place] [address] [place] Carmona PA [address] [facility] [address] [place] [address] [facility] Start: 09-01-2024 End: 09-01-2024 Patient encounter procedure 09/01/2024 2:40 PM EDT Office Visit [facility] [address] [place] [address] Carmela Renee, DEHYDRATION UNIT OPERATOR [address] [place] [address] [facility] Start: 08-19-2024 End: 08-19-2024 Patient encounter procedure 08/19/2024 9:00 AM EST Office Visit [facility] [address] [place] [address] [place] Carmona PA [address] [facility] [address] [place] [address] Acute pain of right wrist (Primary Dx); Ganglion cyst of wrist, right [facility] Comment on above: Acute pain of right wrist (Primary Dx); Ganglion cyst of wrist, right Start: 07-15-2024 End: 07-15-2024 Patient encounter procedure 07/15/2024 1:00 PM EST Office Visit [facility] [address] [place] [address] Carmela Renee, RENATA [address] [place] [phone] [facility] Start: 04-23-2024 Influenza vaccination Influenza Vacc ine (#1) [facility] Comment on above: Postponed from 02/22 (Patient Does Not Have Time) Start: 04-08-2024 End: 04-08-2024 Patient encounter procedure 04/08/2024 10:00 AM EDT Office Visit [facility] [address] [place] [address] Carmela Renee NP [address] [place] [phone] Morbid (severe) obesity due to excess calories (CMS/HCC) (Primary Dx); Body mass index (BMI) 40.0-44.9, adult (CMS/HCC); RINA (generalized anxiety disorder) (CMS/HCC); Obsessive-compulsive disorder, unspecified (CMS/HCC); Hypothyroidism, unspecified (CMS/HCC); Bipolar disorder, unspecified (CMS/HCC); Panic attack as reaction to stress (CMS/HCC); Environmental and seasonal allergies [facility] Comment on above: Morbid (severe) obes ity due to excess calories (CMS/HCC) (Primary Dx); Body mass index (BMI) 40.0-44.9, adult (CMS/HCC); RINA (generalized anxiety disorder) (CMS/HCC); Obsessive-compulsive disorder, unspecified (CMS/HCC); Hypothyroidism, unspecified (CMS/HCC); Bipolar disorder, unspecified (CMS/HCC); Panic attack as reaction to stress (CMS/HCC); Environmental and seasonal allergies Start: 02-23-2024 Influenza vaccination Influenza Vacc ine (#1) [facility] Start: 01-02-2024 Screening for malign ant neoplasm of breast Mammogram [facility] Start: 10-07-2023 End: 10-07-2023 Patient encounter procedure 10/07/2023 2:00 PM EDT Office Visit [facility] [address] [place] [phone] Carmela Renee, RENATA [address] [place] [phone] [facility] Start: 02-22-2023 Influenza vaccination Influenza Vacc ine (#1) [facility] Start: 02-23-2020 Influenza vaccination Flu vaccine (# 1) [place], [place] Start: 2008 Screening for malign ant neoplasm of cervix HPV/Cotest [facility] Start: 1978 Screening for malign ant neoplasm of colon [facility] metabo lic 2000 panel - Serum or Plasma [facility] End: 04-25-2020 Mumps Antibody, IgG Mumps Antibody, IgG Lab Routine Once for 1 Occurrences starting 04/25/2020 until 04/25/2020 [place] Comment on above: Once for 1 Occurrenc es starting 04/25/2020 until 04/25/2020 Mumps Antibody, IgG Mumps Antibo dy, IgG Lab Routine 04/25/2020 12:45 PM EST [place] End: 04-25-2020 Rubeola Antibody, IgG Rubeola Antibody, IgG Lab Routine Once for 1 Occurrences starting 04/25/2020 until 04/25/2020 [place], [place] Comment on above: Once for 1 Occurrenc es starting 04/25/2020 until 04/25/2020 Rubeola Antibody, IgG Rubeola An tibody, IgG Lab Routine 04/25/2020 12:45 PM EST [place], [place] End: 04-25-2020 Varicella Zoster Antibody, IgG Varicella Zoster Antibody, IgG Lab Routine Once for 1 Occurrences starting 04/25/2020 until 04/25/2020 [place], [place] Comment on above: Once for 1 Occurrenc es starting 04/25/2020 until 04/25/2020 Varicella Zoster Antibody, IgG Varicella Zoster Antibody, IgG Lab Routine 04/25/2020 12:45 PM EST [facility] Immunizations Immunization Date Immunization Notes Care Provider Fa cility 08-01-2022 influenza, injectabl e, quadrivalent, preservative free Carmela Aichholz DEHYDRATION UNIT OPERATOR Work Phone: [facility] 08-01-2022 influenza virus vacc ine, unspecified formulation Carmelalexy Vallesholz DEHYDRATION UNIT OPERATOR Work Phone: [facility] 08-19-2002 hepatitis B vaccine, adult dosage Carmela Aicezholz DEHYDRATION UNIT OPERATOR Work Phone: [facility] 01-30-2002 hepatitis B vaccine, adult dosage Carmela Aicezholz DEHYDRATION UNIT OPERATOR Work Phone: [facility] 12-29-2001 hepatitis B vaccine, adult dosage Carmela Aicezholz DEHYDRATION UNIT OPERATOR Work Phone: [facility] Healthcare Payers Date Payer Category Payer [facility] er [id number] 2024 Unknown [id number] 2022 Private Health Insurance PARI MONCADA [id number] 2022 Unknown [id number] 2020 Unknown [id number] 1978 Unknown [id number] 2.16.840.1.195830.3.579.2. 173 1978 Unknown [id number] 2.16.840.1.586706.3.579.2. 173 1978 Unknown [id number] 2.16.840.1.195495.3.579.2. 593 1978 Unknown [id number] 2.16.840.1.528911.3.579.2. 593 1978 Unknown [id number] 2.16.840.1.697602.3.579.2. 593 1978 Unknown [id number] 2.16.840.1.823366.3.579.2. 593 1978 Unknown [id number] 2.16.840.1.007240.3.579.2. 593 1978 Unknown [id number] 2.16.840.1.322830.3.579.2. 593 1978 Unknown [id number] 2.16.840.1.009936.3.579.2. 593 1978 Unknown [id number] 2.16.840.1.039095.3.579.2. 1259 1978 Unknown [id number] 2.16.840.1.016015.3.579.2. 1259 1978 Unknown [id number] 2.16.840.1.471664.3.579.2. 1259 1978 Unknown [id number] 2.16.840.1.824321.3.579.2. 1259 1978 Unknown [id number] 2.16.840.1.083373.3.579.2. 1259 1978 Unknown [id number] 2.16.840.1.402267.3.579.2. 1259 1978 Unknown [id number] 2.16.840.1.126210.3.579.2. 1259 1978 Unknown [id number] 2.16.840.1.195658.3.579.2. 1259 1978 Unknown [id number] 2.16.840.1.328791.3.579.2. 1259 1978 Unknown [id number] 2.16.840.1.080173.3.579.2. 1259 1959 Medicaid [id number] 1959 Unknown [id number] 1.2.840.604827.1.13.239.2. 7.3.158102.315 1959 Unknown Unknown [id number] 2.16.840.1.192849.3.579.2. 593 Social History Date Type Detail Facility [facility] smoked [place] [place] Start: 1980 Sex Assigned At Not on file M [place], [place] Start: 05-23-2023 End: 10-04-2023 Sex Assigned At [facility] Start: 09-22-2021 End: 05-23-2023 Tobacco smoking status NHIS Never smoked tobacco [facility] Start: 05-23-2023 Tobacco use and exposure Smoke less tobacco non-user [facility] Start: 06-24-2023 End: 09-15-2024 Alcohol intake Current drinker of alcohol (finding) [facility] Start: 05-23-2023 End: 10-04-2023 History of Social function [facility] Start: 05-23-2023 Alcohol Comment rarely [facility] In a typical week, h ow many times do you talk on the telephone with family, friends, or neighbors? Patient declined [facility] Do you belong to any clubs or organizations such as hoahaoism groups, unions, fraternal or athletic groups, or [...] To some extent [facility] (I/We) worried wheth er (my/our) food would run out before (I/we) got money to buy more. Never true [facility] Sex Female (finding) [facility] Start: 1980 Sex Assigned At Female F [facility] Clinical Notes 09-22-2021 to 12-16-2024 Carmela Renee NP - 12/16/2024 9:39 AM EDCOREY CHINCHILLA - 09/01/2024 2:40 PM Sincere Renee NP - 09/01/2024 2:40 PM Sincere Renee NP - 09/01/2024 7:06 AM EDTPatient Instructions Note Date & Type Note Facility 12-16-2024 History of Presen t illness Narrative Associated Problem(s): Intrinsic eczema Reviewed skin care, cont antihistamine, trial 5 days steroid Fu if not better documented in this encounter [facility] 09-01-2024 History of Presen t illness Narrative [...] on screening mammogram Adult hypothyroidism ([facility]) Anxiety Bipolar depression ([facility]) 08/16/2023 Depression, major ([facility]) Environmental allergies RINA (generalized anxiety disorder) ([facility]) 05/23/2023 History of being hospitalized 2010 PE Hyponatremia Insomnia Intrinsic eczema 05/23/2023 Mental problem MENTAL ILLNESS Obsessive compulsive disorder ([facility]) 05/23/2023 OCD (obsessive compulsive disorder) ([facility]) Paresthesia of right upper extremity Vaginal yeast infection Past Surgical History: Procedure Laterality Date FEMINIZING AUGMENTATION MAMMOPLASTY Bilateral LUMBAR LAMINECTOMY Left MT BREAST REDUCTION REDUCTION MAMMOPLASTY TONSILLECTOMY family history [...] (severe) obesity due to excess calories (CMS/HCC) - Primary Discussed with patient their BMI [...] and sugary drinks. documented in this encounter [facility] 08-19-2024 History of Presen t illness Narrative [...] of her wrist. 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 Right Wrist Pain and Bump - Onset: Not specified. - Location: Right wrist, inside part. - Character: Pain with a small bump. - Alleviating/Aggravating Factors: Uses her right hand a lot at work as a certified pharmacy tech. 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 documented in this encounter [facility] 08-10-2024 History of Presen t illness Narrative [...] hydroxyzine 90 day supply Now going to [facility] in [place] Images from the original note were not [...] on screening mammogram Adult hypothyroidism ([facility]/HCC) Anxiety Bipolar depression ([facility]) 08/16/2023 Depression, major ([facility]) Environmental allergies RINA (generalized anxiety disorder) ([facility]) 05/23/2023 History of being hospitalized 2010 PE Hyponatremia Insomnia Intrinsic eczema 05/23/2023 Mental problem MENTAL ILLNESS Obsessive compulsive disorder (CMS/HCC) 05/23/2023 OCD (obsessive compulsive disorder) (CMS/HCC) Paresthesia of right upper extremity Vaginal yeast infection Past Surgical History: Procedure Laterality Date FEMINIZING AUGMENTATION MAMMOPLASTY Bilateral LUMBAR LAMINECTOMY Left MT BREAST REDUCTION REDUCTION MAMMOPLASTY TONSILLECTOMY family history [...] (Vistaril) 25 MG capsule Obsessive compulsive disorder ([facility]/HCC) Current med: flovoxamine and vistaril prn Bipolar depression ([facility]) Current meds: abilify, fluovoxamine PHQ 9 score=6 Morbid (severe) obesity due to excess calories ([facility]) Discussed with patient their BMI (actual, verses [...] loss. Panic attack as reaction to stress ([facility]) Current meds: abilify, fluvoxamine, and vistaril prn Relevant Medications hydrOXYzine pamoate (Vistaril) 25 MG capsule Body mass index (BMI) 40.0-44.9, adult ([facility]/HCC) Environmental and seasonal allergies Takes cetirizine Relevant [...] changes in symptoms documented in this encounter [facility] 08-10-2024 Instructions Carmela Renee NP - 08/10/2024 8:40 AM EST Continue current meds Referred to ortho for cyst on wrist Cyst in axillary region: warm compress 3-4 times daily, finish atb follow up in 3 weeks documented in this encounter [facility] 04-08-2024 History of Presen t illness Narrative Associated Problem(s): Flea bite of multiple sites Symptoms improving 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, and card reader already and will have it done again [...] on screening mammogram Adult hypothyroidism ([facility]) Anxiety Bipolar depression ([facility]) 08/16/2023 Depression, major ([facility]) Environmental allergies RINA (generalized anxiety disorder) ([facility]) 05/23/2023 History of being hospitalized 2010 PE Hyponatremia Insomnia Intrinsic eczema 05/23/2023 Mental problem MENTAL ILLNESS Obsessive compulsive disorder ([facility]) 05/23/2023 OCD (obsessive compulsive disorder) ([facility]) Paresthesia of right upper extremity Vaginal yeast infection Past Surgical History: Procedure Laterality Date FEMINIZING AUGMENTATION MAMMOPLASTY Bilateral LUMBAR LAMINECTOMY Left MT BREAST REDUCTION REDUCTION MAMMOPLASTY TONSILLECTOMY family history [...] Symptoms improving 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, and card reader already and will have it done again next week Generalized pruritus Improving with atarax Fu if needed Other Visit Diagnoses Obsessive-compulsive disorder, unspecified (CMS/HCC) Relevant Medications fluvoxaMINE (Luvox) 100 MG tablet hydrOXYzine pamoate (Vistaril) 25 MG capsule Hypothyroidism, unspecified (CMS/HCC) Relevant Medications levothyroxine (Synthroid, Levoxyl) 137 MCG tablet documented in this encounter [facility] 09-22-2021 Evaluation note Encounter Date Diagnosis Assessment Notes Sep, Acute otitis externa of left ear, unspecified type (ICD-10 - H60.502) Drink plenty fluids, get plenty of rest. Use the eardrops as prescribed for 7 days. Take Tylenol Motrin for pain or fevers. Follow-up with your family physician if no improvement in 2 to 3 days [employer] Other Evaluation note* Diagnosis Acquired hypothyroidism (CMS/HCC)- Primary Unspecified hypothyroidism Hypothyroidism, unspecified (CMS/HCC) [facility] [...] affective disorder, remission status unspecified ([facility]) Obsessive-compulsive disorder, unspecified (CMS/HCC) Hypothyroidism, unspecified ([facility]) Panic attack as reaction to stress ([facility])- Primary Encounter for screening mammogram for malignant neoplasm of breast RINA (generalized anxiety disorder) ([facility]/HCC) Generalized anxiety disorder RINA (generalized anxiety disorder) ([facility]/HCC)- Primary Generalized anxiety disorder Morbid (severe) obesity due to excess calories (CMS/HCC) Body mass index (BMI) 40.0-44.9, adult ([facility]) Panic attack as reaction to stress ([facility]) Flea bite of multiple sites- Primary Morbid (severe) obesity due to excess calories (CMS/[facility]) Body mass index (BMI) 40.0-44.9, adult ([facility]/HCC) RINA (generalized anxiety disorder) ([facility]/HCC) Generalized anxiety disorder Obsessive-compulsive disorder, unspecified (CMS/HCC) Hypothyroidism, unspecified (CMS/HCC) Bipolar disorder, unspecified ([facility]/HCC) Bipolar disorder, unspecified Panic attack as reaction to stress ([facility]) Environmental and seasonal allergies Generalized pruritus Unspecified pruritic disorder [facility]* Diagnosis Bipolar disorder, unspecified ([facility]/HCC) Bipolar disorder, unspecified [facility]* Diagnosis RINA (generalized anxiety disorder) ([facility]/HCC) Generalized anxiety disorder Panic attack as reaction to stress (CMS/HCC) [...] mass index (BMI) 40.0-44.9, adult ([facility]) Panic attack as reaction to stress ([facility]) Flea bite of multiple sites- Primary Morbid (severe) obesity due to excess calories (CMS/[facility]) Body mass index (BMI) 40.0-44.9, adult ([facility]/HCC) RINA (generalized anxiety disorder) (CMS/HCC) Generalized anxiety disorder Obsessive-compulsive disorder, unspecified (CMS/HCC) Hypothyroidism, unspecified (CMS/HCC) Bipolar disorder, unspecified (CMS/HCC) Bipolar disorder, unspecified Panic attack as reaction to stress ([facility]/HCC) Environmental and seasonal allergies Generalized pruritus Unspecified pruritic disorder RINA (generalized anxiety disorder) ([facility]/HCC) Generalized anxiety disorder Obsessive-compulsive disorder, unspecified ([facility]/HCC) Panic attack as reaction to stress ([facility]/HCC) [facility] [...] attack as reaction to stress ([facility]/HCC)- Primary Encounter for screening mammogram for malignant [...] Morbid (severe) obesity due to excess calories (CMS/[facility]) Body mass index (BMI) 40.0-44.9, adult ([facility]) Panic attack as reaction to stress ([facility]) Flea bite of multiple sites- Primary Morbid (severe) obesity due to excess calories (CMS/[facility]) Body mass index (BMI) 40.0-44.9, adult ([facility]) RINA (generalized anxiety disorder) ([facility]) Generalized anxiety disorder Obsessive-compulsive disorder, unspecified (CMS/[facility]) Hypothyroidism, unspecified ([facility]) Bipolar disorder, unspecified ([facility]) Bipolar disorder, unspecified Panic attack as reaction to stress ([facility]) Environmental and seasonal allergies Generalized pruritus Unspecified pruritic disorder Sebaceous cyst of axilla- Primary Morbid (severe) obesity due to excess calories ([facility]) Body mass index (BMI) 40.0-44.9, adult ([facility]) Acquired hypothyroidism ([facility]) Unspecified hypothyroidism Bipolar depression ([facility]) Bipolar I disorder, most recent episode (or current) depressed, unspecified Environmental and seasonal allergies RINA (generalized anxiety disorder) ([facility]) Generalized anxiety disorder Mixed obsessional thoughts and acts ([facility]) Panic attack as reaction to stress ([facility]) Bipolar disorder, unspecified ([facility]) Bipolar disorder, unspecified Obsessive-compulsive disorder, unspecified ([facility]) Hypothyroidism, unspecified ([facility]) Ganglion cyst of wrist, right Sebaceous cyst of axilla- Primary Morbid (severe) obesity due to excess calories ([facility]) Acute pain of right wrist- Primary Ganglion [...] obesity due to excess calories ([facility]) Body mass index (BMI) 40.0-44.9, adult ([facility]) Panic attack as reaction to stress Flea bite of multiple sites- Primary Morbid (severe) obesity due to excess calories ([facility]) Body mass index (BMI) 40.0-44.9, adult ([facility]) RINA (generalized anxiety disorder) Generalized anxiety disorder Obsessive-compulsive disorder, unspecified Hypothyroidism, unspecified Bipolar disorder, unspecified (HCC) Bipolar disorder, unspecified Panic attack as reaction to stress Environmental and seasonal allergies Generalized pruritus Unspecified pruritic disorder Sebaceous cyst of axilla- Primary Morbid (severe) obesity due to excess calories ([facility]) Body mass index (BMI) 40.0-44.9, adult ([facility]) Acquired hypothyroidism Unspecified hypothyroidism Bipolar depression ([facility]) Bipolar I disorder, most recent episode (or current) depressed, unspecified Environmental and seasonal allergies RINA (generalized anxiety disorder) Generalized anxiety disorder Mixed obsessional thoughts and acts Panic attack as reaction to stress Bipolar disorder, unspecified (HCC) Bipolar disorder, unspecified Obsessive-compulsive disorder, unspecified Hypothyroidism, unspecified Ganglion cyst of wrist, right Sebaceous cyst of axilla- Primary Morbid (severe) obesity due to excess calories ([facility]) Acute non-recurrent maxillary sinusitis- Primary Morbid (severe) obesity due to excess calories ([facility]) Hypothyroidism, unspecified- Primary Sebaceous cyst of axilla Rash Rash and other nonspecific skin eruption [facility] Diagnosis Onset Date Resolution Status Admit Date Acquired hypothyroidism acute S ep2024 1:10pm Bipolar depression acute 2024 1:10pm Environmental and seasonal allergies acute March 03, 2025 1:10pm RINA (generalized anxiety disorder) acute March 03, 2025 1:10pm Morbid (severe) obesity due to excess calories acute March 03, 2025 1:10pm Rash acute February 1:10pm [facility] Work Phone: History general Narrative - Reported* Type Description Date Medical History Insomnia Medical History Hypothyroidism Medical History Anxiety Medical History Depression Surgical History tonsillectomy and adenoidectomy Surgical History breast reduction Surgical History lumbar laminectomy Hospitalization History pulmonary embolism [employer] Other Reason for referral (narrative)No reason for referral information [facility] Work Phone: Summary Purpose Family History No Family History Records FoundNo Family History Records FoundNo Family History Records FoundNo Family History Records Found Advance Directives Advance Directive Response Recorded Date/ Time Advance Directives No February 1:06pm Chief Complaint and Reason for Visit Chief Complaint Admit Date ESTABLISHED PATIENT March 03, 2025 1:10pm Reason for Visit Admit Date Acquired hypothyroidism March 03, 2025 1:10pm Bipolar depression March 03, 2025 1:10pm Environmental and seasonal allergies Sep tember 2024 1:10pm RINA (generalized anxiety disorder) Septe mber 2024 1:10pm Morbid (severe) obesity due to excess ca lories March 03, 2025 1:10pm Rash March 03, 2025 1:10pm Additional Source Comments INFORMATION SOURCE (unrecogn ized section and content) DATE CREATED AUTHOR 11/24/2019 [facility] DATE CREATED AUTHOR AUTHOR'S ORGANIZ ATION 08/14/2020 [facility] DATE CREATED AUTHOR AUTHOR'S ORGANIZ ATION 09/04/2022 [facility] DATE CREATED AUTHOR AUTHOR'S ORGANIZ ATION 09/16/2024 [facility] EPIC REASON FOR VISIT (unrecogniz ed section and content) Reason Comments Med Refill Reason Comments Pain Specialty Diagnoses / Procedures Referred By Contjovanna t Referred To Contact Orthopaedic Surgery Diagnoses Ganglion cyst of wrist, right Carmela Renee NP [address] [place] [address] Phone: tel: fax: Silvana Parr NP fax: Referral ID Status Reason Start Date Expiration Date V isits Requested Visits Authorized [id number] Closed Specialty Services Required 08/10/2024 02/06/2025 1 1 Reason Onset Date Comments Med Refill 12/16/2024 Care Teams (unrecognized sec tion and content) [employer] Developer Relationship Specialty Start Date End Date Chadwick Sauceda MD PCP - General Family Medicine 01/09/23 Carmela Renee NP [address] [place] [phone] Referring Physician Nurse Practitioner 01/09/23 [employer] Developer Relationship Specialty Start Date End Date Chadwick Sauceda MD [address] [place] [phone] PCP - General Family Medicine 10/07/23 Carmela Renee NP [address] [place] [phone] Referring Physician Nurse Practitioner 01/09/23 Carmela Renee NP [address] [place] [phone] Nurse Practitioner Family Medicine 10/07/23 [employer] Developer Relationship Specialty Start Date End Date Chadwick Sauceda MD [address] [place] [phone] PCP - General Family Medicine 10/07/23 Carmela Renee NP [address] [place] [phone] Referring Physician Nurse Practitioner 01/09/23 Carmela Renee NP [address] [place] [phone] Nurse Practitioner Family Medicine 10/07/23 [employer] Developer Relationship Specialty Start Date End Date Chadwick Sauceda MD [address] [place] [phone] PCP - General Family Medicine 10/07/23 Carmela Renee NP [address] [place] [phone] Referring Physician Nurse Practitioner 01/09/23 Carmela Renee NP [address] [place] [phone] Nurse Practitioner Family Medicine 10/07/23 [employer] Developer Relationship Specialty Start Date End Date Chadwick Sauceda MD [address] [place] [phone] PCP - General Family Medicine 10/07/23 Carmela Renee NP [address] [place] [phone] Referring Physician Nurse Practitioner 01/09/23 Carmela Renee NP [address] [place] [phone] Nurse Practitioner Family Medicine 10/07/23 [employer] Developer Relationship Specialty Start Date End Date Chadwick Sauceda MD [address] [place] [phone] PCP - General Family Medicine 04/23/24 Carmela Renee NP [address] [place] [phone] Referring Physician Nurse Practitioner 01/09/23 Carmela Renee NP [address] [place] [phone] Primary Care Provider Family Medicine 10/07/23 [employer] Developer Relationship Specialty Start Date End Date Chadwick Sauceda MD [address] [place] [phone] PCP - General Family Medicine 04/23/24 Carmela Renee NP [address] [place] [phone] Referring Physician Nurse Practitioner 01/09/23 Carmela Renee NP [address] [place] [phone] Primary Care Provider Family Medicine 10/07/23 Windows [employer] Developer Relationship Specialty Start Date End Date Chadwick Sauceda MD [address] [place] [phone] PCP - General Family Medicine 04/23/24 Carmela Renee NP [address] [place] [phone] Referring Physician Nurse Practitioner 01/09/23 Carmela Renee NP [address] [place] [phone] Primary Care Provider Family Medicine 10/07/23 [employer] Developer Relationship Specialty Start Date End Date Chadwick Sauceda MD [address] [place] [phone] PCP - General Family Medicine 04/23/24 Carmela Renee NP [address] [place] [phone] Referring Physician Nurse Practitioner 01/09/23 Carmela Renee NP [address] [place] [phone] Primary Care Provider Family Medicine 10/07/23 [employer] Developer Relationship Specialty Start Date End Date Chadwick Sauceda MD [address] [place] [phone] PCP - General Family Medicine 04/23/24 Carmela Renee NP [address] [place] [phone] Referring Physician Nurse Practitioner 01/09/23 Carmela Renee NP [address] [place] [phone] Primary Care Provider Family Medicine 10/07/23 [employer] Developer Relationship Specialty Start Date End Date Chadwick Sauceda MD [address] [place] [phone] PCP - General Family Medicine 04/23/24 Carmela Renee NP [address] [place] [phone] Referring Physician Nurse Practitioner 01/09/23 Carmela Renee NP [address] [place] [phone] Primary Care Provider [facility] Medicine 10/07/23 [employer] Developer Relationship Specialty Start Date End Date Chadwick Sauceda MD [address] [place] [phone] PCP - General [facility] Medicine 04/23/24 Carmela Renee NP [address] [place] [phone] PCP [facility] 09/22/24 Carmela Renee NP [address] [place] [phone] Referring Physician Nurse Practitioner 01/09/23 Carmela Renee NP [address] [place] [phone] Primary Care Provider [facility] 10/07/23 Team Status: Active Member Role Status Dates Carmela Renee Primary Care Provider Active Team Status: Inactive Member Role Status Dates Carmela Renee Primary Care Provider Active Sta rt: March 03, 2025 End: March 03, 2025 Carmela Renee Attending Provider Active Start: March 03, 2025 End: March 03, 2025 Goals (unrecognized section and content) Goals may be documented in a n alternate section FOR RECORDS PERTAINING TO PATIENTS WHO ARE [...] BE BASED ON THE PRIMARY CLINICAL RECORDS. [facility]. provides no warranty or guarantee of the accuracy or completeness of information in this document.
[2025-03-09 11:55] LABS: Hematocrit 41.9 % (36.0-48.0); Hemoglobin 14.2 g/dL (12.0-16.0); Immature Granulocytes Abs Auto 0.03 10^3/uL (0.00-0.03); Immature Granulocytes Pct Auto 0.3 % (0.0-0.5); Lymphocytes Absolute Auto 2.6 10^3/uL (1.2-3.8); Mean Corpuscular HGB Conc 33.9 g/dL (29.9-35.2); Mean Corpuscular Hemoglobin 27.5 pg (26.7-34.0); Mean Corpuscular Volume 81.0 fL (81.0-99.0); Platelet Count 201 10^3/uL (150-450); Red Blood Count 5.17 10^6/uL (4.20-5.40); White Blood Count 8.7 10^3/uL (4.0-11.0)
[2025-03-09 12:26] LABS: Alanine Aminotransferase 26 U/L (14-59); Albumin Globulin Ratio 0.8; Albumin Level 3.2 g/dL (3.4-5.0); Alkaline Phosphatase 107 U/L (46-116); Anion Gap 12.2; Aspartate Amino Transferase 19 U/L (15-37); Blood Urea Nitrogen 14.0 mg/dL (7.0-18.0); Calcium 8.9 mg/dL (8.5-10.1); Carbon Dioxide 23.2 mmol/L (21.0-32.0); Chloride 108 mmol/L (98-107); Cholesterol 154 mg/dL (<=200); Estimated GFR (African America >60 (>=60 mL/min/1.73m^2); Estimated GFR (Non-African Ame >60 (>=60 mL/min/1.73m^2); Globulin 3.8 g/dL; Glucose 92 mg/dL (74-106); HDL Cholesterol 32 mg/dL (40-60); Potassium 4.4 mmol/L (3.5-5.1); Sodium 139 mmol/L (136-145); Thyroid Stimulating Hormone 0.035 uIU/mL (0.358-3.740); Total Protein 7.0 g/dL (6.4-8.2); Triglycerides 141 mg/dL (<=150); VLDL CHOLESTEROL 28.2 mg/dL
== END 2025-03-09 11:18 | disposition home or self-care (01) ==
LOC: LAB 11:19
PROVIDERS: PCP Nurse Practitioner; Visit Provider Nurse Practitioner
DX: E03.9 Hypothyroidism, unspecified (principal)
CPT/HCPCS: 36415; 80053; 80061; 84439; 84443; 85025

== ENCOUNTER 2025-06-01 11:01 | Outpatient (OUT) | payer BC, SELFPAY ==
--- OUTSIDE RECORDS SUMMARY | 2025-06-01 11:07 | XMS_ITS | CCD ---
Author Organization [facility] Care Team Providers Care Ammonia Still Operator Name Role Phone Unavailable Primary Care Provider UnavailHARJINDER Hagan Referring Unavailable AICHHOLZ, CARMELA Lois Referring Unavailable AICHHOLZ, CARMELA J. Primary Care Unavailable Aichholfabrice, Carmela J. Primary Care Provider [phone] Lesly Snider Unavailable AICHHOLZ, SCUDDING INSPECTOR CARMELA Admitting Unavailable AICHHOLZ, SCUDDING INSPECTOR CARMELA Attending Unavailable AICHHOLZ, SCUDDING INSPECTOR CARMELA Primary Care Unavailable AICHHOLZ, SCUDDING INSPECTOR CARMELA Consulting Unavailable AICHHOLZ, SCUDDING INSPECTOR CARMELA Admitting Unavailable AICHHOLZ, SCUDDING INSPECTOR CARMELA Attending Unavailable AICHHOLZ, SCUDDING INSPECTOR CARMELA Primary Care Unavailable AICHHOLZ, SCUDDING INSPECTOR CARMELA Consulting Unavailable AICHHOLZ, SCUDDING INSPECTOR CARMELA Admitting Unavailable AICHHOLZ, SCUDDING INSPECTOR CARMELA Attending Unavailable AICHHOLZ, SCUDDING INSPECTOR CARMELA Primary Care Unavailable CAVE SPRING, DR WILLY Gonsales Consulting Unavailable AICHHOLZ, SCUDDING INSPECTOR CARMELA Consulting Unavailable AICHHOLZ, SCUDDING INSPECTOR CARMELA Admitting Unavailable AICHHOLZ, SCUDDING INSPECTOR CARMELA Attending Unavailable AICHHOLZ, SCUDDING INSPECTOR CARMELA Primary Care Unavailable AICHHOLZ, SCUDDING INSPECTOR CARMELA Consulting Unavailable AICHHOLZ, SCUDDING INSPECTOR CARMELA Admitting Unavailable AICHHOLZ, SCUDDING INSPECTOR CARMELA Attending Unavailable AICHHOLZ, SCUDDING INSPECTOR CARMELA Primary Care Unavailable AICHHOLZ, SCUDDING INSPECTOR CARMELA Consulting Unavailable DR CAMI PASCAL Consulting Unavailable KARASIK ., DR JOHNSON Admitting Unavailabl e KARASIK ., DR JOHNSON Attending Unavailabl e AICHHOLZ, SCUDDING INSPECTOR CARMELA Primary Care Unavailable KARASIK ., DR JOHNSON Consulting Unavailabl e REQUEST, NONE LISTED Admitting Unavaila ble REQUEST, DR HINDS LISTED Attending Unavaila ble AICHHOLZ, SCUDDING INSPECTOR CARMELA Primary Care Unavailable REQUEST, DR NONE LISTED Consulting Unavaila ble KARASIK ., DR JOHNSON Admitting Unavailabl e KARASIK ., DR JOHNSON Attending Unavailabl e AICHHOLZ, SCUDDING INSPECTOR CARMELA Primary Care Unavailable KARASIK ., DR JOHNSON Consulting Unavailabl e ROBERTOALEJANDRO Consulting Unavailable Komal VASQUEZ, Chadwick Primary Care Provider Aichholz CLIPPER OPERATOR, Carmela Unavailable Aichholz CLIPPER OPERATOR, Carmela Unavailable Chadwick Sauceda MD Primary Care Provider Aichholz CLIPPER OPERATOR, Carmela Unavailable Aichholz CLIPPER OPERATOR, Carmela Unavailable Chadwick Sauceda MD Primary Care Provider AICHHOLZ, CARMELA Attending Unavailable AD CARMONA Attending Unavailable AICHHOLZ, CARMELA Referring Unavailable AD CARMONA Referring Unavailable AICHKERENZ, CARMELA Attending Unavailable AD CARMONA Attending Unavailable AICHHOLZ, CARMELA Attending Unavailable AICHHOLZ, CARMELA Attending Unavailable AICHHOLZ, CARMELA Attending Unavailable AICHHOLZ, CARMELA Attending Unavailable AICHHOLZ, CARMELA Attending Unavailable Aichholz CLIPPER OPERATOR, Carmela Unavailable Aichholz, Carmela J Primary Care Provider Aichradha, Carmela J Attending Provider Aichholz CLIPPER OPERATOR, Carmela Unavailable Aichholz CLIPPER OPERATOR, Carmela Unavailable Unallocated MD, Noms Provider Primary Care Provi mitch Chadwick Sauceda MD Primary Care Provider Aichholz CLIPPER OPERATOR, Carmela Unavailable Allergies Allergy ClassificationReported Allergen(s)Allergy TypeDate of OnsetReaction(s) Facility (2 sources)LatexPropensity to adverse sobmemmgb64-53-1679gjmtzs [facility] (20 sources)SertralineDrug Bovkdgk87-61-9811IlyoyrteupmucnQwqof Tomorrowish Other (1 source)Acetaminophen / HYDROcodoneDrug Wpmiiqv47-24-2665Rek [facility] (1 source)LatexDrug allergy (disorder)28-64-5691Qhz [facility] (1 source)SertralineDrug Rgvbxzt67-20-4943Arh [facility] (18 sources)Acetaminophen / HYDROcodoneDrug Amiymwv29-53-2616MxipfczewebuhoVWJQ Healthcare (18 sources)LatexPropensity to adverse brzmbycxr49-97-4657HbrcEHZY Healthcare (1 source)Acetaminophen / HYDROcodoneDrug Unmwmqc06-67-8074Skwihxbgttwpj [facility] Medications Current Medications MedicationDrug Class(es)DatesSig (Normalized)Sig (Original)ARIPiprazole 20 mg oral tablet (20 sources)Atypical AntipsychoticStart: 44-91-9478euqc 1 tablet by mouth once dailyAripiprazole 20 mg tablet Active 20 MG PO Daily March 03, 2025 12:00am Complies with drug therapyStart: 10-07-2023 End: 08-08-6404gamw 1 tablet by mouth once dailyARIPiprazole (Abilify) 20 MG tablet Indications: Bipolar disorder, unspecified (HCC) Take 1 tablet (20 mg) by mouth Daily 90 tablet 1 08/10/2024 Activetake 1 tablet by mouth in the morning ARIPiprazole (Abilify) 20 MG tablet Take 20 mg by mouth in the morning. 0 Active Abilify Activecephalexin 500 mg oral capsule (5 sources)Cephalosporin AntibacterialStart: 08-10-2024 End: 87-91-0680otfw 1 capsule by mouth in the morningcephalexin (Keflex) 500 MG capsule Indications: Sebaceous cyst of axilla Take 1 capsule (500 mg) bymouth in the morning and 1 capsule (500 mg) before bedtime. Do all this for 10 days. 20 capsule 08/10/2024 08/20/2024 Activecetirizine hydrochloride 10 mg oral capsule (20 sources)Histamine-1 Receptor AntagonistStart: 17-28-8786ccwx 1 capsule by mouth once daily as neededStart: 04-08-2024 End: 42-30-6945lcwu 1 tablet by mouth once dailycetirizine (ZyrTEC) 10 MG tablet Indications: Environmental and seasonal allergies Take 1 tablet (10 mg) by mouth Daily 90 tablet 1 08/10/2024 Activetake 1 tablet by mouth once dailycetirizine (ZyrTEC) 10 MG tablet Take 10 mg by mouth Daily Activetake 5 mg by mouth in the morningcetirizine (ZyrTEC) 10 MG tablet Take 5 mg by mouth in the morning. 0 Activefluconazole 150 mg oral tablet (12 sources)Azole AntifungalStart: 19-48-8388Vfmelcmvbmo 150 mg tablet Active 150 MG PO Q3D March 03, 2025 12:00am Complies with drug therapyStart: 82-88-5992xrkoxyihfhs (Diflucan) 150 MG tablet Indications: Sebaceous cyst of axilla One time dose, may repeat in 3 days if needed 2 tablet 1 12/16/2024 ActiveStart: 08-10-2024 End: 24-93-1963ixsrfqbkjyx (Diflucan) 150 MG tablet Indications: Sebaceous cyst of axilla One time dose, may repeat in 3 days if needed 2 tablet 08/10/2024 12/16/2024 Discontinued (Reorder)Start: 00-23-3859ggtsylbqhjr (Diflucan) 150 MG tablet Indications: Vaginal yeast infection Take 150mg dose, may repeat in 3 days 2 tablet 1 06/13/2023 ActivefluvoxaMINE maleate 100 mg oral tablet (20 sources)Serotonin Reuptake InhibitorStart: 37-25-1447crhb 1 tablet by mouth twice dailyFluvoxamine 100 mg tablet Active 150 MG PO Twice daily March 03, 2025 12:00am Complies with drug therapyStart: 10-07-2023 End: 84-24-4867mxpa 1.5 tablets by mouth in the morningfluvoxaMINE (Luvox) 100 MG tablet Indications: RINA (generalized anxiety disorder) , Obsessive-compulsive disorder, unspecified Take 1.5 tablets (150 mg) by mouth in the morning and 1.5 tablets (150 mg) before bedtime. 270 tablet 1 08/10/2024 ActiveStart: 05-31-2023 End: 43-49-2305scgy 1.5 tablets by mouth in the morningfluvoxaMINE (Luvox) 100 MG tablet Indications: Obsessive-compulsive disorder, unspecified (CMS/HCC), RINA (generalized anxiety disorder) (CMS/HCC) Take 1.5 tablets (150 mg) by mouth in the morning and 1.5 tablets (150 mg) before bedtime. 270 tablet 1 05/31/2023 08/29/2023 ActivefluvoxaMINE Maleate Activehydrocortisone 10 mg/ml / neomycin 3.5 mg/ml / polymyxin b 09358 unt/ml otic suspension (1 source)Aminoglycoside Antibacterial, Polymyxin-class Antibacterial, CorticosteroidStart: 50-12-8395Ehymaejf-Polymyxin-HC 3.5-66392-2 3 drops left ear Three times a day for 7 days Sep, ActivehydrOXYzine pamoate 25 mg oral capsule (20 sources)AntihistamineStart: 52-48-6484rhlk 1 capsule by mouth twice daily as neededHydroxyzine Pamoate (Vistaril) 25 mg capsule Active 25 MG PO Twice daily as needed March 03, 2025 12:00am Complies with drug therapyStart: 04-08-2024 End: 17-30-7192jogi 1 capsule by mouth oncehydrOXYzine pamoate (Vistaril) 25 MG capsule Indications: RINA (generalized anxiety disorder) , Panic attack as reaction to stress , Obsessive-compulsive disorder, unspecified Take 1 capsule (25 mg) by mouth every 12 (twelve) hours if needed for itching or anxiety 180 capsule 1 08/10/2024 ActiveStart: 02-25-2024 End: 08-84-2174urim 0.5 tablet by mouth oncehydrOXYzine HCl (Atarax) 25 MG tablet Indications: RINA (generalized anxiety disorder) (CMS/HCC) , Panic attack as reaction to stress (CMS/HCC) Take 0.5 tablets (12.5 mg) by mouth every 12 (twelve) hours if needed for anxiety or itching 60 tablet 1 04/08/2024 04/08/2024 Discontinued (Therapy completed)levothyroxine sodium 0.137 mg oral tablet (20 sources)l-ThyroxineStart: 52-86-5632mkoe 1 tablet by mouth once daily Levothyroxine 137 mcg tablet Active 137 MCG PO Daily March 03, 2025 12:00am Complies with drug therapyStart: 07-30-2023 End: 08-57-9110gwev 1 tablet by mouth once dailylevothyroxine (Synthroid, Levoxyl) 137 MCG tablet Indications: Hypothyroidism, unspecified Take 137mcg by mouth Daily 90 tablet 1 08/10/2024 Activetake 1 capsule by mouth before mealtime levothyroxine (Tirosint) 137 MCG capsule Take 137 mcg by mouth in the morning. Take before meals. 0ActiveLevothyroxine Sodium ActiveMelatonin (1 source)Melatonin Activetemazepam 15 mg oral capsule (9 sources)Benzodiazepine End: 35-19-4600bgathjevt (Restoril) 15 MG capsule Take 15 mg by mouth as needed at bedtime for sleep. 08/10/2024 Discontinued (Therapy completed)triamcinolone acetonide 1 mg/ml topical cream (7 sources)CorticosteroidStart: 12-16-2024 End: 19-98-7319gbdevhvcutndc (Kenalog) 0.1 % cream Indications: Rash Apply topically in the morning and before bedtime. Do all this for 14 days. Apply to affected area 1-2 times daily as needed. Avoid face and groin. 45 g 12/16/2024 12/30/2024 Active End: 47-35-9377duxitjskukowb (Kenalog) 0.1 % cream Apply 1 application topically in the morning and 1 application before bedtime. As needed. 04/08/2024 Discontinued (Therapy completed) Completed/Discontinued Medications MedicationDrug Class(es)DatesSig (Normalized)Sig (Original)methylPREDNISolone (5 sources)CorticosteroidStart: 08-19-2024 End: 51-96-7028hfaxmlWGNIHDOujods (Medrol Dospak) 4 MG tablets Indications: Ganglion cyst of wrist, right Follow schedule on package instructions 21 tablet 08/19/2024 09/01/2024 Discontinued (Therapy completed)Start: 08-19-2024 methylPREDNISolone (Medrol Dospak) 4 MG tablets Indications: Ganglion cyst of wrist, right Follow schedule on package instructions 21 tablet 08/19/2024 Active Problems Active Problems Problem ClassificationProblemDateDocumented DateEpisodic/ChronicAllergic reactions (19 sources)Atopic dermatitis; Translations: [Intrinsic (allergic) eczema]Onset: 770532-25-8375PbmxaowFdpnpue disorders (20 sources)Generalized anxiety disorder; Translations: [Generalized anxiety disorder]Onset: 372240-30-9937MnzklovAqsg disorders (20 sources)Bipolar disorder, unspecified; Translations: [Bipolar disorder, most recent episode depression]Onset: 03-08-2022 Resolved: 999490-20-6823YoxkpfsSiqyr connective tissue disease (1 source)Ganglion of wrist; Translations: [Ganglion, unspecified wrist] 24-18-7172IfffpuegJskqg non-traumatic joint disorders (2 sources)Pain in wrist; Translations: [Pain in right wrist]19-00-6543Vlhoewkr Other nutritional; endocrine; and metabolic disorders (20 sources)Obesity caused by energy imbalance; Translations: [Morbid (severe) obesity due to excess calories]Onset: 944684-63-8188ZificouQzznn nutritional; endocrine; and metabolic disorders (20 sources)Body mass index 40+ - severely obese; Translations: [Body mass index (BMI) 40.0-44.9, adult]Onset: 309685-49-5028HqcpmbfHhcpc upper respiratory disease (20 sources)Allergic disposition; Translations: [Other allergic rhinitis]Onset: 586417-36-3759FdxvfxmWmlsbbe disorders (20 sources)Hypothyroidism, unspecified; Translations: [Hypothyroidism]Onset: 93-78-2049YqwtjeuEtowjmgcanum (1 source)CONTACT W/AND (SUSP) EXPOS COVID-19; Translations: [CONTACT W/AND (SUSP) EXPOS COVID-19]Onset: 03-04-2022 Past or Other Problems Problem ClassificationProblemDateDocumented DateEpisodic/ChronicE Codes: Natural/environment (16 sources)Nonvenomous insect bite of multiple sites; Translations: [Bitten or stung by nonvenomous insect andother nonvenomous arthropods, initial encounter] Onset: 04-08-2024 Resolved: 617118-34-7291DkutmncvOthjpaeovugo diseases of female pelvic organs (5 sources)Abscess of vulva; Translations: [ABSCESS OF VULVA]Onset: 03-02-2022 EpisodicMood disorders (17 sources)Mood disordersOnset: Other connective tissue disease (16 sources)Ganglion cyst of right wrist; Translations: [Ganglion, right wrist] Onset: 311984-73-9160TksnuwsaBwxvv ear and sense organ disorders (1 source)Unspecified acute noninfective otitis externa, left earOnset: 09-22-2021 Resolved: 66-55-4785YjxmyqcnDsgxc inflammatory condition of skin (17 sources)Generalized pruritus ; Translations: [Pruritus, unspecified]Onset: 049493-82-4027LoospfexQscit screening for suspected conditions (not mental disorders or infectious disease) (20 sources)Other abnormal and inconclusive findings on diagnostic imaging of breast; Translations: [Encounter for screening mammogram for malignant neoplasm of breast]Onset: 44-49-9674IzpljudhYvlnv skin disorders (16 sources)Sebaceous cyst of skin; Translations: [Sebaceous cyst]Onset: 555236-56-7376LwfsxotoZzsbn skin disorders (5 sources)Eruption; Translations: [Rash and other nonspecific skin eruption] Onset: 619543-52-1052NvgepziqIkrzf upper respiratory infections (3 sources)Acute maxillary sinusitis; Translations: [Acute maxillary sinusitis, unspecified]Onset: 478248-36-2136BxpovdgxXyuslksj codes; unclassified (1 source)Procedure and treatment not carried out for other reasons; Translations: [PROC AND TX NOT CARRIED OUT OTH REASONS]Onset: 03-20-0312Cfvsqubi Results Test NameValueInterpretationReference RangeFacilityXR Wrist - right 2 Viewson 98-34-5163Bkcoemw Result: AP and Lateral Right Wrist: Bone Structure: No acute fracture or dislocation Joint Spaces: The carpal joint spaces are well preserved, no joint space narrowing, Scapho-lunate interval within normal limit. Soft tissue: No swelling or calcification Impression: No acute bony process Right [facility]ristCape [facility] Rad[facility] Study observation (narrative)[facility] TOMOSYNTHESIS SCREENING BIon 37-41-3374[place] [address] Mammography Report Signed Patient: Henrietta Garcia MR#: [id number] : 1980 Acct:[id number] Age/Sex: 43 / F ADM Date: 01/03/24 Loc: MAMMO Attending Dr: Carmela Renee NP Ordering Physician: Carmela Renee NP Results: Date of Service: 01/03/24 Follow Up: Procedure(s): MM tomosynthesis screening BI Accession Number(s): [id number] cc: Carmela Renee NP Patient Name: HENRIETTA GARCIA MR#: [id number] : 1980 Exam Date: 01/03/2024 Ordering Doctor: [...] Treatments None Family Cancers None LOCATION: The [facility] BREAST COMPOSITION: There are scattered areas [...] BIOPSIED. Dictated by: Willy Soto MD on 01/03/2024 at 12:56 Approved by: Willy Soto MD on 01/03/2024 at 12:57 Dictated By: Willy Soto M.D. Signed By: 01/03/24 1258 DD/ 1257 TD/TT: Dexigraph Operator:TBHRadiology, RadiologistMD - 01/03/2024 [place] [address] Mammography Report Signed Patient: Henrietta Garcia MR#: [id number] : 1980 Acct:[id number] Age/Sex: 43 / F ADM Date: 01/03/24 Loc: MAMMO Attending Dr: Carmela Renee NP Ordering Physician: Carmela Renee NP Results: Date of Service: 01/03/24 Follow Up: Procedure(s): MM tomosynthesis screening BI Accession Number(s): [id number] cc: Carmela Renee NP Patient Name: HENRIETTA GARCIA MR#: [id number] : 1980 Exam Date: 01/03/2024 Ordering Doctor: [...] Treatments None Family Cancers None LOCATION: [facility] BREAST COMPOSITION: There are scattered areas [...] BIOPSIED. Dictated by: Willy Soto MD on 01/03/2024 at 12:56 Approved by: Willy Soto MD on 01/03/2024 at 12:57 Dictated By: Willy Soto M.D. Signed By: 01/03/24 1258 DD/ 1257 TD/TT: Dexigraph Operator: [place] HealthcareRadiology Study observation (narrative)[facility] HealthcareMM TOMOSYNTHESIS SCREENING BIOrdered By: Radiologist Radiology on 08-61-2811[facility] Work Phone: FREE T4on 99-78-8467Upul T4 [Mass/Vol]1.35 ng/dLNormal 0.76-1.46The [facility] HospitalComment on above:Performed By: #### FT4 #### [facility] [address] [place] [address] Dr. Steve De La O 75-17-9239BMF8.319 uIU/mLCritically low0.358-3.740[facility] SouthComment on above:Performed By: #### TSH ####[facility] [address] [place], [place] [address]Hh Leon T4on 28-03-5138Ycau T4 [Mass/Vol]1.15 ng/dLNormal0.76-1.46[facility] Comment on above:Performed By: #### FT4 #### [facility] [address] [place], [place] [address] Dr. Steve De La O 80-19-5741MGN8.149 uIU/mLCritically high0.358-3.740[facility] SouthComment on above:Performed By: #### TSH #### [facility] [address] [address] [address] Steve OliverosPREGNANCY URon 88-42-3596XSCJYUPUH, QUALNegativeNormalNEGATIVEThe [facility] HospitalComment on above:Performed By: #### PREGU #### [facility] [address] [address] [address] Steve OliverosCootf-19 PCR ([facility])on 01-75-7766NTEJ-CoV-2 (COVID-19) RNA ZI+probe Ql (Unsp spec)Not detectedNormalNOT DETECTEDThe [facility] Comment on above:Result Comment: When diagnostic testing is negative, the [...] for this test is supported by the [place] of Health and Human Service's declaration that circumstances exist to justify the emergency use of in vitro diagnostics for the detection and/or diagnosis of the virus that causes COVID-19. This EUA will remain in effect for the duration of the COVID-19 declaration justifying emergency of IVDs, unless it is terminated or revoked by the FDA (after which the test may no longer be used).Performed By: #### CVDTBH ####[facility] [address] [place], [place] [address]XlKirill OliverosMG MAMM RT DIAG FUon 70-20-8762AN MAMM RT DIAG FUPatient: HENRIETTA GARCIA Exam Date: 12/27/2021 : 1980 Gender:F Ordering : [facility] Admission #: [id number] Family : Order #: [id number] CLICK HERE TO VIEW EXAM RADIOLOGY REPORT [...] Treatments None Family Cancers None LOCATION: [facility] BREAST COMPOSITION: Scattered areas fibroglandular density. [...] LUMP SHOULD BE BIOPSIED. Dictated by: Cami Psacal M.D. on 12/27/2021 at 10:27 Approved by: Cami Pascal M.D. on 12/27/2021 at 10:30[facility] HospitalMG [facility] SCRE[facility] 3D OLI CADon 31-77-4435UE MAMM SCREEN 3D OLI CADPatient: HENRIETTA GARCIA Exam Date: 12/18/2021 : 1980 Gender:F Ordering : [facility] Admission #: [id number] Family : Order #: [id number] CLICK HERE TO VIEW EXAM RADIOLOGY REPORT PROCEDURE: MAMMOGRAM SCREENING 3D BILATERAL CAD COMPARISON: None. INDICATIONS: Screening Calculator Name NCI Breast Cancer Risk Assessment Tool 5 Year Breast Cancer Risk 0.80% Lifetime Breast Cancer Risk 10.80% Personal Breast Cancer No Personal Ovarian Cancer No Treatments None Family Cancers None LOCATION: [facility] BREAST COMPOSITION: Scattered areas fibroglandular density. [...] by: Willy Soto MD on 12/18/2021 at 12:55[facility] ACOG PANEL 2: 30 to 65on 12-17-2021..NormalThe [facility] HospitalCombeaumont hospital on above:Result Comment: Performed at: WBPerformed By: #### [id number] #### [facility] [address] [place] [address] Dr. Steve Stover Gdln ACOG Nxuwkbt94-04QnlglmWcuSt. Elizabeth HospitalComment on above:Performed By: #### [id number] #### [facility] [address] [place] [address] Dr. Steve OliverosDIAGNOSIS:CommentFairfield Medical Center on above: Result Comment: NEGATIVE FOR INTRAEPITHELIAL LESION OR MALIGNANCY. Performed at: WBPerformed By: #### [id number] #### [facility] [address] [place] [address] Dr. Steve OliverosHPDru AptimaNegativeNormalNegativeDunlap Memorial Hospital on above:Result Comment: This nucleic acid amplification test detects fourteen high-risk HPV types (16,18,31,33,35,39,45,51,52,56,58,59,66,68) without differentiation. Performed at: =GPerformed By: #### [id number] #### [facility] [address] [place] [address] Dr. Steve OliverosMethodology:CommentNoShelby Memorial Hospital on above: Result Comment: This liquid based ThinPrep(R) pap test was screened with the use of an image guided system. Performed at: WBPerformed By: #### [id number] #### [facility] [address] [place] [address] Dr. Steve OliverosNote:CommentNoShelby Memorial Hospital on above:Result Comment: The Pap smear is a screening test designed to aid in the detection of premalignant and malignant conditions of the uterine cervix. It is not a diagnostic procedure and should not be used as the sole means of detecting cervical cancer. Both false-positive and false-negative reports do occur. . Performed at: WBPerformed By: #### [id number] #### [facility] [address] [place] [address] Dr. Steve OliverosPerformed by:CommentNoShelby Memorial Hospital on above: Result Comment: Vivek Lockwood Payroll Tax Specialist (ASCP) Performed at: WBPerformed By: #### [id number] #### [facility] [address] [place] [address] Dr. Steve OliverosSpecimen adequacy:CommentFairfield Medical Center on above:Result Comment: Satisfactory for evaluation. Endocervical and/or squamous metaplastic cells (endocervical component) are present. Performed at: WBPerformed By: #### [id number] #### [facility] [address] [place] [address] Dr. Steve Man AUTO DIFFon 00-83-3924GDBD #0.0 103/ulNormal0.0-0.1The [facility] Hospitalment on above:Performed By: #### DATCBC #### [facility] [address] [place] [address] Dr. Steve OliverosBasophils/100 WBC (Bld)0.6 %Normal0.2-2.0[facility] Comment on above:Performed By: #### DATCBC #### [facility] [address] [place] [address] Dr. Steve Hanks #0.1 103/ulNormal0.0-0.7The [facility] HospitalComment on above: Performed By: #### DATCBC #### [facility] [address] [place] [address] Dr. Steve Kohliosinophils/100 WBC (Bld)1.5 %Normal0.9-7.0The [facility] Comment on above:Performed By: #### DATCBC #### [facility] [address] [place] [address] Dr. Steve Kohlirythrocyte distribution width (RBC) [Ratio]12.3 %Vflssn48.0-15.0 [facility] HospitalComment on above:Performed By: #### DATCBC #### [facility] [address] [place] [address] Dr. Steve OliverosHematocrit (Bld) [Volume fraction]42.5 %Msurku37.0-48.0The [facility] HospitalComment on above:Performed By: #### DATCBC #### [facility] [address] [place] [address] Dr. Steve OliverosHemoglobin (Bld) [Mass/Vol]13.7 g/sCWsjpim60.0-16.0The [facility] HospitalComment on above:Performed By: #### DATCBC #### [facility] [address] [place] [address] Dr. Steve Arthur #0.02 10e3/ulNormal0.00-0.03The [facility] HospitalComment on above:Performed By: #### DATCBC #### [facility] [address] [place] [address] Dr. Steve Arthur %0.3 %Normal0.0-0.5The [facility] HospitalComment on above: Performed By: #### DATCBC #### [facility] [facility] [address] [place] [address] Dr. Steve Barahona #1.8 103/ulNormal1.2-3.8The [facility] HospitalComment on above:Performed By: #### DATCBC #### [facility] [address] [place] [address] Dr. Steve Raineymphocytes/100 WBC (Bld)24.4 %Vnceov76.5-60.0The [facility] HospitalComment on above:Performed By: #### DATCBC #### [facility] [address] [place] [address] Dr. Steve Mayfield (RBC) [Entitic mass]28.1 eaTuntuz74.7-34.0The [facility] HospitalComment on above:Performed By: #### DATCBC #### [facility] [address] [place] [address] Dr. Steve Mayfield (RBC) [Mass/Vol]32.2 g/vBCkcxsm97.9-35.2The [facility] HospitalComment on above:Performed By: #### DATCBC #### [facility] [address] [place] [address] Dr. Steve Mayfield (RBC) [Entitic vol]87.3 uZUdibbv62.0-99.0The [facility] HospitalComment on above:Performed By: #### DATCBC #### [facility] [address] [place] [address] Dr. Steve Dickens #0.5 103/ulNormal0.3-0.8The [facility] HospitalComment on above:Performed By: #### DATCBC #### [facility] [address] [place] [address] Dr. Steve Prabhakarocytes/100 WBC (Bld)6.6 %Normal1.7-12.0The [facility] Comment on above:Performed By: #### DATCBC #### [facility] [address] [place] [address] Dr. Steve Mendes #4.8 103/ulNormal1.4-6.5The [facility] HospitalComment on above:Performed By: #### DATCBC #### [facility] [address] [place] [address] Dr. Steve Alfredutrophils/100 WBC (Bld)66.6 %Cdzmyy93.0-75.0[facility] on above:Performed By: #### DATCBC #### [facility] [address] [place] [address] Dr. Steve Blancaslet mean volume (Bld) [Entitic vol]9.1 fLCritically low 9.5-13.5The [facility] HospitalComment on above:Performed By: #### DATCBC #### [facility] [address] [place] [address] Dr. Steve OliverosPLT301 103/raJmllhi113-911SkpSelect Medical Specialty Hospital - Columbus SouthCombeaumont hospital on above: Performed By: #### DATCBC #### [facility] [address] [place] [address] Dr. Steve OliverosRBC4.87 106/ulNormal4.20-5.40The [facility] on above:Performed By: #### DATCBC #### [facility] [address] [place] [address] Dr. Steve OliverosWBC7.2 103/ulNormal4.0-11.0[facility] on above: Performed By: #### DATCBC #### [facility] [address] [place] [address] Dr. Steve Ramirez - TSHon 63-55-8570IXX9.045 uIU/mLCritically high0.358-3.740 The [facility] HospitalCombeaumont hospital on above:Performed By: #### KIMBER HORTON #### [facility] [address] [place] [address] Dr. Steve Sousa [facility] HospitalComment on above: Result Comment: <0.34 UIU/ml HYPERTHYROID 0.34-5.60 UIU/ml EUTHYROID >5.60 UIU/ml HYPOTHYROIDPerformed By: #### AMANDA HORTONP #### [facility] [address] [address] [address] Steve Ramirez- PHILIP WITH LIPIDon [id number] gap [Moles/Vol]12.1 mmol/L NormalSelect Medical Specialty Hospital - Columbus SouthComment on above:Performed By: #### DATTSEz, DATBMP #### [facility] [address] [place] [address] Dr. Steve OliverosCalcium [Mass/Vol]9.0 mg/dLNormal8.5-10.1The [facility] Comment on above:Performed By: #### DATTSEz DATBMP #### [facility] [address] [place] [address] Dr. Steve OliverosChloride [Moles/Vol]105 mmol/GLblutt01-478XufSelect Medical Specialty Hospital [facility] South Comment on above:Performed By: #### CLIFFORD DATBMP #### [facility] [address] [place] [address] Dr. Steve OliverosCholesterol [Mass/Vol]191 mg/dLNormal<=200The [facility] Comment on above:Performed By: #### CLIFFORD DATBMP #### [facility] [address] [place] [address] Dr. Steve OliverosCholesterol in HDL [Mass/Vol]33 mg/dLCritically mxg98-92Zdi [facility] HospitalComment on above:Performed By: #### DATERICKA DATBMP #### [facility] [address] [place] [address] Dr. Steve OliverosCholesterol in LDL [Mass/Vol]117.0 mg/dLNormalThe [facility] HospitalComment on above:Performed By: #### DATTSEz, DATBMP #### [facility] [address] [place] [address] Dr. Steve OliverosCO2 [Moles/Vol]25.1 mmol/UTmnjoz36.0-32.0The [facility] Comment on above:Performed By: #### DATTSH, DATBMP #### [facility] [address] [place], [place] [address] Dr. Steve OliverosCreatinine [Mass/Vol]0.93 mg/dLNormal0.55-1.02[facility] SouthComment on above:Performed By: #### DATTSEz, DATBMP #### [facility] [address] [address] [address] Steve KohliGFR-AF [place] CITIZ[place]>60Normal>=60The [facility] HospitalComment on above:Performed By: #### DATTSEz, DATBMP #### [facility] [address] [address] [address] Steve KohliGFR-NON AF [place] CITIZEN>60Normal>=60The [facility] HospitalComment on above:Performed By: #### DATTSEz, DATBMP #### [facility] [address] [place] [address] Dr. Steve OliverosGlucose [Mass/Vol]91 mg/wGPgkdkz54-261NsaSelect Medical Specialty Hospital [facility] Comment on above:Performed By: #### DATERICKA, DATBMP #### [facility] [address] [address] [address] Steve OliverosHDFord NORMAL> or = 60 mg/dl - LOW CARDIOVASCULAR RISK <40 mg/dl - HIGH CARDIOVASCULAR RISKBluffton HospitalCombeaumont hospital on above:Performed By: #### DATERICKA, DATBMP #### [facility] [address] [address] [address] Steve OliverosLDL CALC NORMALSEE BELOWBluffton HospitalComment on above:Result Comment: <100 mg/dl OPTIMAL 100 - 129 mg/dl NEAR OR ABOVE OPTIMAL 130 - 159 mg/dl BORDERLINE HIGH 160 - 189 mg/dl HIGH >190 mg/dl VERY HIGH Performed By: #### DATTSH, DATBMP #### [facility] [address] [address] [address] Steve OliverosPotassium [Moles/Vol]4.2 mmol/LNormal3.5-5.1[facility] Comment on above:Performed By: #### DATTSH, DATBMP #### [facility] [address] [address] [address] Steve OliverosSodium [Moles/Vol]138 mmol/CZchksl144-642Qlz [facility] Comment on above:Performed By: #### DATTSH, DATBMP #### [facility] [address] [address] [address] Steve OliverosTriglyceride [Mass/Vol]205 mg/dLCritically high<=150The [facility] HospitalComment on above:Performed By: #### DATTSH, DATBMP #### [facility] [address] [address] [address] Steve OliverosUrea nitrogen [Mass/Vol]10.0 mg/dLNormal7.0-18.0The [facility] HospitalComment on above:Performed By: #### DATTSH, DATBMP #### [facility] [address] [address] [address] Steve OliverosUrea nitrogen/Creatinine [Mass ratio]10.8 mg/mgNoSt. Elizabeth HospitalComment on above:Performed By: #### DATTSH, DATBMP #### [facility] [address] [address] [address] Steve OliverosVLDL CALC41.0 mg/dLNoSt. Elizabeth HospitalComment on above: Performed By: #### DATTSH, DATBMP #### [facility] [address] [address] [address] [facility] OliverosMURRAY-[facility] Auto Differentialon [id number] (Bld) [#/Vol]0.07 10*3/[employer] Phone: basophils/100 WBC (Bld)1 %0 - 2 %[employer] Phone: differential TypeNOT DELTA MEDICAL CENTERAlektrona Phone: eosinophils (Bld) [#/Vol]0.22 10*3/[employer] Phone: eosinophils/100 WBC (Bld)2 %1 - 4 %[employer] Phone: erythrocyte distribution width (RBC) [Ratio]13.0 %11.8 - 14.4 %[employer] Phone: Hematocrit (Bld) [Volume fraction]43.3 %36.3 - 47.1 % [employer] Phone: Hemoglobin (Bld) [Mass/Vol]13.6 g/dL11.9 - 15.1 g/dL [facility] Phone: Immature granulocytes (Bld) [#/Vol]0.05 10*3/[employer] Phone: Immature granulocytes (Bld) [#/Vol]0 %0[facility] HospitalSocial Studios Phone: Interpretation and review of laboratory results AbnormalTrihealth Bethesda Butler HospitalSocial Studios Phone: lymphocytes (Bld) [#/Vol]2.56 10*3/uLTrihealth Bethesda Butler HospitalSocial Studios Phone: lymphocytes/100 WBC (Bld)23 %Low24 - 43 %[employer] Phone: MCH (RBC) [Entitic mass]27.0 pg25.2 - 33.5 pgTrihealth Bethesda Butler HospitalSocial Studios Phone: MCHC (RBC) [Mass/Vol]31.4 g/dL28.4 - 34.8 g/dLTrihealth Bethesda Butler HospitalSocial Studios Phone: MCV (RBC) [Entitic vol]86.1 fL82.6 - 102.9 fLTrihealth Bethesda Butler HospitalSocial Studios Phone: Monocytes (Bld) [#/Vol]1.01 10*3/uLTrihealth Bethesda Butler HospitalSocial Studios Phone: [phone]/100 WBC (Bld)9 %3 - 12 %[employer] Phone: platelet mean volume (Bld) [Entitic vol]9.5 fL8.1 - 13.5 fLTrihealth Bethesda Butler HospitalSocial Studios Phone: [phone] (Bld) [#/Vol]NOT REPORTEDTrihealth Bethesda Butler HospitalHepatoChem Work Phone: [phone] (Bld) [#/Vol]300 10*3/uLTrihealth Bethesda Butler HospitalSocial Studios Phone: [phone] (Bld) [#/Vol]5.03 10*6/uL3.95 - 5.11 m/uLTrihealth Bethesda Butler HospitalHepatoChem Work Phone: RBC morphology finding Nom (Bld)NOT REPORTEDTrihealth Bethesda Butler HospitalSocial Studios Phone: [phone] neutrophils/100 WBC (Bld)65 %36 - 65 %[facility]aleM[facility] Phone: Segs Absolute7.39[facility] HospitalSocial Studios Phone: [phone] (Bld) [#/Vol]11.3 10*3/uLTrihealth Bethesda Butler HospitalSocial Studios Phone: [phone] (Bld) [#/Vol]0.0 10*3/uL0.0 per 100 WBCTrihealth Bethesda Butler HospitalSocial Studios Phone: WBC MorphologyNOT REPORTEDTrihealth Bethesda Butler HospitalSocial Studios Phone: CBC with Diffon [id number]. Basophil0.07 k/uLNormal 0.00-0.20[facility] TroyComment on above:Performed By: #### RYAN GLEZ, TSH #### [address] [place] [address] Gang Sawyer: Willy Jasmine MD #### ALEKSEY ATKINSON #### [address] [address] Gang Sawyer: Reynaldo Moyer.Imm.Granulocyte0.05 k/uLNormal0.00-0.30[facility] TroyComment on above:Performed By: #### NEWTON, RYAN, TSH #### [address] [place] [address] Gang Sawyer: Willy Jasmine MD #### FT4, LIPR #### [id number] Gang Sawyer: Reynaldo Moyer.Neutrophil (Seg)7.39 k/uLNormal1.50-8.10 [facility] TroyComment on above:Performed By: #### RYAN GLEZ, TSH #### [address] [place] [address] Gang Sawyer: Willy Jasmine MD #### FT4, LIPR #### [address] [phone] Gang Sawyer: Tr Bullard MDBasophils/100 WBC (Bld)1 %Normal0-2MercHospital for Special CareComment on above:Performed By: #### RYAN GLEZ, TSH #### [address] [place] [address] Gang Sawyer: Willy Jasmine MD #### FT4, LIPR #### [place] [address] Gang Sawyer: Tr Bullard MDEosinophils (Bld) [#/Vol]0.22 10*3/uLNormal 0.00-0.44[facility] TroyComment on above:Performed By: #### RYAN GLEZ, TSH #### [address] [place] [address] Gang Sawyer: Willy Jasmine MD #### FT4, LIPR #### [address] [phone] Gang Sawyer: Tr Bullard MDEosinophils/100 WBC (Bld)2 %Normal1-4[facility] TroyComment on above:Performed By: #### RYAN GLEZ, TSH #### [address] [place], [place] [phone] Gang Sawyer: Willy Jasmine MD #### FT4, LIPR #### [address] [address] Gang Sawyer: Tr Bullard MDErythrocyte distribution width (RBC) [Ratio]13.0 %Uutagl90.8-14.4[facility] TroyComment on above:Performed By: #### NEWTON CP, TSH #### [address] [address] Gang Sawyer: Willy Jasmine MD #### FT4, LIPR #### [place] [address] Gang Sawyer: Tr Bullard MDHematocrit (Bld) [Volume fraction]43.3 %Normal 36.3-47.1MMercy Health St. Elizabeth Boardman HospitalComment on above:Performed By: #### NEWTON CP, TSH #### [address] [place] [address] Gang Sawyer: Willy Jasmine MD #### FT4, LIPR #### [address] [id number] Gang Sawyer: Tr Bullard MDHemoglobin (Bld) [Mass/Vol]13.6 g/dLNormal 11.9-15.1MMercy Health St. Elizabeth Boardman HospitalComment on above:Performed By: #### NEWTON CP, TSH #### [address] [place], [place] [address] Gang Sawyer: Willy Jasmine MD #### FT4, LIPR #### [address] [phone] Gang Sawyer: Tr Bullard MDImmature granulocytes (Bld) [#/Vol]0 %Normal[address] [facility] on above:Performed By: #### CDP, CP, TSH #### [address] [place], [place] [phone] Gang Sawyer: Willy Jasmine MD #### FT4, LIPR #### [address] [phone] Gang Sawyer: Tr Bullard MDLymphocytes (Bld) [#/Vol]2.56 10*3/uLNormal 1.10-3.70[facility] TroyCombeaumont hospital on above:Performed By: #### CDP, CP, TSH #### [address] [place] [address] Gang Sawyer: Willy Jasmine MD #### FT4, LIPR #### [address] [phone] Gang Sawyer: Tr Bullard MDLymphocytes/100 WBC (Bld)23 %Dwa11-85QliesKettering Health TroyCombeaumont hospital on above:Performed By: #### CDP, CP, TSH #### [address] [place] [address] Gang Sawyer: Willy Jasmine MD #### FT4, LIPR #### [address] [address] Gang Sawyer: DAYRON Moyer (RBC) [Entitic mass]27.0 wgRgbatt41.2-33.5 [facility] TroyCombeaumont hospital on above:Performed By: #### CDP, CP, TSH #### [address] [place], [place] [address] Gang Sawyer: Willy Jasmine MD #### FT4, LIPR #### [address] [address] Gang Sawyer: DAYRON MoyerC (RBC) [Mass/Vol]31.4 g/oJPgiwiq47.4-34.8 [facility] TroyComment on above:Performed By: #### CDP, CP, TSH #### [address] [place] [address] Gang Sawyer: Willy Jasmine MD #### FT4, LIPR #### [address] [address] Gang Sawyer: JACK MoyerCV (RBC) [Entitic vol]86.1 zUVpuqxy93.6-102.9 [facility] TroyComment on above:Performed By: #### NEWTON CP, TSH #### [address] [phone] Gang Sawyer: Willy Jasmine MD #### FT4, LIPR #### [place] [address] Gang Sawyer: JACK Moyeronocytes (Bld) [#/Vol]1.01 10*3/uLNormal 0.10-1.20[facility] TroyComment on above:Performed By: #### NEWTON CP, TSH #### [address] [place] [phone] Gang Sawyer: Willy Jasmine MD #### FT4, LIPR #### [address] [address] Gang Sawyer: JACK Moyeronocytes/100 WBC (Bld)9 %Normal3-12[facility] TroyComment on above:Performed By: #### NEWTON, CP, TSH #### [address] [phone] Gang Sawyer: Willy Jasmine MD #### FT4, LIPR #### [address] [address] Gang Sawyer: Tr Madoff, MDNeutrophil (Seg)65 %Pzckfq38-15GozorKettering Health TroyCombeaumont hospital on above:Performed By: #### CDP, CP, TSH #### [address] [place] [address] Gang Sawyer: Willy Jasmine MD #### FT4, LIPR #### [address] [phone] Gang Sawyer: Tr Bullard MDNRBC Automated0.0 per 100 WBCNormal0.0[facility] TroyCombeaumont hospital on above:Performed By: #### CDP, CP, TSH #### [address] [place] [phone] Gang Sawyer: Willy Jasmine MD #### FT4, LIPR #### [place] [address] Gang Sawyer: Jovan Moyer mean volume (Bld) [Entitic vol]9.5 fL Normal8.1-13.5[facility] TroyCombeaumont hospital on above:Performed By: #### NEWTON, CP, TSH #### [address] [place] [phone] Gang Sawyer: Willy Jasmine MD #### FT4, LIPR #### [place] [address] Gang Sawyer: Amalia Moyer (Bld) [#/Vol]300 10*3/pNTvyyhd446-767 [facility] TroyCombeaumont hospital on above:Performed By: #### CDP, CP, TSH #### [address] [place] [address] Gang Sawyer: Willy Jasmine MD #### FT4, LIPR #### [place] [address] Gang Sawyer: ISAMAR Moyer (d) [#/Vol]5.03 10*6/uLNormal3.95-5.11 [facility] TroyComment on above:Performed By: #### CDP, CP, TSH #### [address] [place] [address] Gang Sawyer: Willy Jasmine MD #### FT4, LIPR #### [address] [address] Gang Sawyer: Tr Bullard MDW (Bld) [#/Vol]11.3 10*3/uLNormal3.5-11.3MSCCI Hospital Lima HospitalComment on above:Performed By: #### CDP, CP, TSH #### [address] [place] [address] Gang Sawyer: Willy Jasmine MD #### FT4, LIPR #### [address] [address] Gang Sawyer: Troy Moyer PerformedNOT REPORTEDNormalMercy Joseph City HospitalComment on above:Performed By: #### CDP, CP, TSH #### [address] [place] [address] Gang Sawyer: Willy Jasmine MD #### FT4, LIPR #### [address] [address] Gang Sawyer: Amalia Moyer ([facility]) [#/Vol]NOT REPORTEDNormalMercy Windham HospitalComment on above:Performed By: #### CDP, CP, TSH #### [address] [place] [address] Gang Sawyer: Willy Jasmine MD #### FT4, LIPR #### [address] [address] Gang Sawyer: ISAMAR Moyer morphology finding Nom (Bld)NOT REPORTED [facility] Medical CenterComment on above:Performed By: #### RYAN GLEZ, TSH #### [address] [place], [place] [phone] Gang Sawyer: Willy Jasmine MD #### FT4, LIPR #### [address] [place], [place] [id number] Gang Sawyer: Tr Bullard MDST. LAWRENCE [facility] MorphologyNOT REPORTEDNormalKettering Health TroyComment on above:Performed By: #### RYAN GLEZ, TSH #### [address] [place] [place] [address] Gang Sawyer: Willy Jasmine MD #### FT4, LIPR #### [address] [place], [place] [phone] Gang Sawyer: Tr Bullard [facility] Metabolic Profon 08-12-2020(cont.)Normal [facility] TroyComment on above:Result Comment: Average GFR for 40-49 years old: 99 mL/min/1.73sq m Chronic Kidney Disease: <60 mL/min/1.73sq m Kidney failure: <15 mL/min/1.73sq m eGFR calculated using average adult body mass. Additional eGFR calculator available at: http://www.DokDok.Teleborder/multiple_crcl_2011.htmPerformed By: #### RYAN GLEZ, TSH #### [address] [place] [address] Gang Sawyer: Willy Jasmine MD #### FT4, LIPR #### [facility] [address] [place], [place] [phone] Gang Sawyer: Tr Bullard MDAlbumin [Mass/Vol]3.8 g/dLNormal3.5-5.2MSCCI Hospital Lima HospitalComment on above:Performed By: #### RYAN GLEZ, TSH #### [address] [place], [place] [phone] Gang Sawyer: Willy Jasmine MD #### FT4, LIPR #### [address] [address] Gang Sawyer: Tr Bullard MDAlbumin/Globulin [Mass ratio]1.0 {ratio}Normal 1.0-2.5[facility] TroyComment on above:Performed By: #### RYAN GLEZ, TSH #### [address] [place], [place] 0955283 Gang Sawyer: Willy Jasmine MD #### FT4, LIPR #### [address] [phone] Gang Sawyer: Elena Moyerkaline Nsug309 U/LKgon35-210NosusKettering Health TroyComment on above:Performed By: #### RYAN GLEZ, TSH #### [address] [place], [place] [address] Gang Sawyer: Willy Jasmine MD #### FT4, LIPR #### [address] [address] Gang Sawyer: Tr Bullard MDALT [Catalytic activity/Vol]19 U/LNormal5-33 [facility] TroyComment on above:Performed By: #### RYAN GLEZ, TSH #### [address] [place], [place] 418[address] Gang Sawyer: Willy Jasmine MD #### FT4, LIPR #### [address] [address] Gang Sawyer: Tr Bullard MDAnion gap [Moles/Vol]9 mmol/LNormal9-17[facility] TroyComment on above:Performed By: #### RYAN GLEZ, TSH #### [address] [place], [place] 7534883 Gang Sawyer: Willy Jasmine MD #### FT4, LIPR #### [address] [id number] Gang Sawyer: Tr Bullard MDAST [Catalytic activity/Vol]16 U/LNormal<32[facility] TroyComment on above:Performed By: #### NEWTON CP, TSH #### [facility] [address] [place] [address] Dr[address] [address]83 Gang Sawyer: Willy Jasmine MD #### FT4, LIPR #### [address] [address] Gang Sawyer: Tr Bullard MDBilirubin Ql (U)0.37 mg/dLNormal0.3-1.2MercBarnesville Hospital HospitalComment on above:Performed By: #### RYAN GLEZ, TSH #### [address] [place] [address] Gang Sawyer: Willy Jasmine MD #### FTAndie, LIPR #### [address] [address] Gang Sawyer: Tr Bullard MDBUN/CRE Toibk56Hiivaj4-85Fzndr [facility] Comment on above:Performed By: #### NEWTON CP, TSH #### [address] [place] [phone] ( Gang Sawyer: Willy Jasmine MD #### FT4, LIPR #### [address] [address] Gang Sawyer: TARA Moyeralcium [Mass/Vol]9.5 mg/dLNormal8.6-10.4[facility] TroyComment on above:Performed By: #### NEWTON CP, TSH #### [address] [place] [place] [address] Gang Sawyer: Willy Jasmine MD #### FT4, LIPR #### [address] [phone] Gang Sawyer: Tr Bullard MDChloride [Moles/Vol]102 mmol/ZOzlmym69-448HiwxoKettering Health TroyComment on above:Performed By: #### CDP, CP, TSH #### [address] [place] [address] Gang Sawyer: Willy Jasmine MD #### FT4, LIPR #### [place] [phone] Gang Sawyer: Tr Bullard MDCO2 [Moles/Vol]21 mmol/HRhruaf35-21EhkujKettering Health TroyComment on above:Performed By: #### NEWTON, CP, TSH #### [address] [place] [address] Gang Sawyer: Willy Jasmine MD #### FT4, LIPR #### [address] [phone] Gang Sawyer: TARA Moyerreatinine [Mass/Vol]0.73 mg/dLNormal0.50-0.90 [facility] TroyComment on above:Performed By: #### CDP, CP, TSH #### [address] [place] [address] Gang Sawyer: Willy Jasmine MD #### FT4, LIPR #### [address] [phone] Gang Sawyer: Tr Bullard MDGFR, Amer>60Normal>60Mercy Health HospitalComment on above:Performed By: #### CDP, CP, TSH #### [address] [place] [address] Gang Sawyer: Willy Jasmine MD #### FT4, LIPR #### [address] [place], [place] 3419[address] Gang Sawyer: Tr Bullard MDGFR,non Amer>60Normal>60[facility] HospitalComment on above:Performed By: #### CDP, CP, TSH #### [address] [place] [address]3883 Gang Sawyer: Willy Jasmine MD #### FT4, LIPR #### [address] [place], [place] 0934708 Gang Sawyer: Tr Bullard MDGlucose [Mass/Vol]99 mg/cSEydjov40-64YvswuMercy Health St. Elizabeth Boardman HospitalComment on above:Performed By: #### NEWTON CP, TSH #### [address] [place] 5503883 Gang Sawyer: Willy Jasmine MD #### FT4, LIPR #### [address] [phone] Gang Sawyer: Tr Bullard MDPotassium [Moles/Vol]3.9 mmol/LNormal3.7-5.3 [facility] TroyComment on above:Performed By: #### NEWTON CP, TSH #### [address] [place] 5503883 Gang Sawyer: Willy Jasmine MD #### FT4, LIPR #### [address] [place], [place] 4949[address] Gang Sawyer: Tr Bullard MDProtein [Mass/Vol]7.6 g/dLNormal6.4-8.3MMercy Health St. Elizabeth Boardman HospitalComment on above:Performed By: #### CDP, CP, TSH #### [address] [place] [address] Gang Sawyer: Willy Jasmine MD #### FT4, LIPR #### [facility] [address] [place], [place] 12112[address] Gang Sawyer: KVNG Moyerodium [Moles/Vol]132 mmol/FFan257-575RrrwuKettering Health TroyComment on above:Performed By: #### CDP, CP, TSH #### [address] [place] [place] [address] Gang Sawyer: Willy Jasmine MD #### FT4, LIPR #### [address] [phone] Gang Sawyer: KVNG Moyertaging:[facility]ula County Medical CenterComment on above:Result Comment: Stage 1: Some kidney damage normal GFR Stage 2: Mild kidney damage GFR 60-89 Stage 3: Moderate kidney damage GFR 30-59 Stage 4: Severe kidney damage GFR 15-29 Stage 5: Severe kidney damage GFR <15 ESRD - chronic treatment by dialysis or transplantPerformed By: #### NEWTON CP, TSH #### [address] [place] [place] [address] Gang Sawyer: Willy Jasmine MD #### FT4, LIPR #### [address] [address] Gang Sawyer: Tr Bullard MDUrea nitrogen [Mass/Vol]11 mg/dLNormal6-20[facility] TroyComment on above:Performed By: #### CDP, CP, TSH #### [address] [place] [address] Gang Sawyer: Willy Jasmine MD #### FT4, LIPR #### [address] [id number] Gang Sawyer: TARA Moyeromprehensive Metabolic Panelon 08-12-2020 Albumin [Mass/Vol]3.8 g/dL3.5 - 5.2 g/dLTrihealth Bethesda Butler HospitalSocial Studios Phone: Ylbumin/Globulin [Mass ratio]1.0 {ratio}[facility] [employer] Phone: ELP [Catalytic activity/Vol]128 U/LHigh35 - 104 U/L [facility] [employer] Phone: GLT [Catalytic activity/Vol]19 U/L5 - 33 U/LMuc [facility] center [employer] Work Phone: Pnion gap [Moles/Vol]9 mmol/L9 - 17 mmol/LMst. francis hospitaly [employer] Work Phone: AST [Catalytic activity/Vol]16 U/L<32[facility] [employer] Phone: Milirubin Ql (U)0.37 mg/dL0.3 - 1.2 mg/dLTrihealth Bethesda Butler HospitalSocial Studios Phone: Vun/Cre Sfmye20Ytjzi [employer] Phone: Qalcium [Mass/Vol]9.5 mg/dL8.6 - 10.4 mg/dLTrihealth Bethesda Butler HospitalSocial Studios Phone: Ihloride [Moles/Vol]102 mmol/L98 - 107 mmol/LMercy [employer] Work Phone: BO2 [Moles/Vol]21 mmol/L20 - 31 mmol/LMercy [employer] Work Phone: Ireatinine [Mass/Vol]0.73 mg/dL0.5 - 0.9 mg/dLTrihealth Bethesda Butler HospitalSocial Studios Phone: GFR >60>60 mL/minTrihealth Bethesda Butler HospitalHepatoChem Work Phone: GFR Non->60>60 mL/minTrihealth Bethesda Butler HospitalHepatoChem Work Phone: Glucose [Mass/Vol]99 mg/dL70 - 99 mg/dLTrihealth Bethesda Butler HospitalSocial Studios Phone: Potassium [Moles/Vol]3.9 mmol/L3.7 - 5.3 mmol/LMercy [employer] Work Phone: protein [Mass/Vol]7.6 g/dL6.4 - 8.3 g/dLTrihealth Bethesda Butler HospitalSocial Studios Phone: sodium [Moles/Vol]132 mmol/CZzh051 - 144 mmol/LMercy [employer] Phone: Urea nitrogen [Mass/Vol]11 mg/dL6 - 20 mg/dLTrihealth Bethesda Butler HospitalSocial Studios Phone: lipid Panelon 12-64-8266Ugdkwzimxwe [Mass/Vol]167 mg/dL<200Mer [employer] Phone: comment on above: Cholesterol Guidelines: <200 Desirable 200-240 Borderline >240 Undesirable Cholesterol in HDL [Mass/Vol]34 mg/dLLow>40[facility] [employer] Phone: comment on above: HDL Guidelines: <40 Undesirable 40-59 Borderline >59 Desirable Cholesterol in LDL [Mass/Vol]103 mg/dL0 - 130 mg/dLTrihealth Bethesda Butler HospitalSocial Studios Phone: comment on above: LDL Guidelines: <100 Desirable 100-129 Near to/above Desirable 130-159 Borderline >159 Undesirable Direct (measured) LDL and calculated LDL are not interchangeable tests. Cholesterol in VLDL [Mass/Vol]NOT REPORTED1 - 30 mg/dLTrihealth Bethesda Butler HospitalSocial Studios Phone: cholesterol.total/Cholesterol in HDL [Mass ratio]4.9 {ratio}<5MerSocial Studios Phone: Interpretation and review of laboratory results AbnormalTrihealth Bethesda Butler HospitalSocial Studios Phone: Triglyceride [Mass/Vol]148 mg/dL<150Tri[facility] HospitalSocial Studios Phone: comment on above: Triglyceride Guidelines: <150 Desirable 150-199 Borderline 200-499 High >499 Very high Based on AHA Guidelines for fasting triglyceride, March 2012. Lipid Profileon 49-27-9267Tjrnxgcxskk [Mass/Vol]167 mg/dLNormal<200Mer[facility] City HospitalComment on above:Result Comment: Cholesterol Guidelines: <200 Desirable 200-240 Borderline >240 UndesirablePerformed By: #### CDP, CP, TSH #### [address] [place] [address] Gang Sawyer: Willy Jasmine MD #### FT4, LIPR #### [address] [id number] Gang Sawyer: TARA Moyerholesterol in HDL [Mass/Vol]34 mg/dLLow>40Mer[facility] Windham HospitalComment on above:Result Comment: HDL Guidelines: <40 Undesirable 40-59 Borderline >59 DesirablePerformed By: #### CDP, CP, TSH #### [address] [place] [id number] ( Gang Sawyer: Willy Jasmine MD #### FT4, LIPR #### [address] [address] Gang Sawyer: TARA Moyerholesterol in LDL [Mass/Vol]103 mg/dLNormal 0-130Tri[facility] Butler Hospitalcy Windham HospitalComment on above:Result Comment: LDL Guidelines: <100 Desirable 100-129 Near to/above Desirable 130-159 Borderline >159 Undesirable Direct (measured) LDL and calculated LDL are not interchangeable tests.Performed By: #### CDP, CP, TSH #### [address] [place] [phone] ( Gang Sawyer: Willy Jasmine MD #### FT4, LIPR #### [address] [address] Gang Sawyer: Lea Moyer.total/Cholesterol in HDL [Mass ratio]4.9 {ratio}Normal<5MerSharon HospitalComment on above:Performed By: #### CDP, CP, TSH #### [address] [place] [phone] Gang Sawyer: Willy Jasmine MD #### FT4, LIPR #### [facility] [address] [place], [place] [phone] Gang Sawyer: Tr Bullard MDTriglyceride [Mass/Vol]148 mg/dLNormal<150[facility] Health TroyComment on above:Result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 [id number] [id number] 2.16.840.1.228522.3.57[id number] 2.840.1.049709.3.57[id number] 2.840.1.388177.3.57[id number] 2.840.1.305669.3.57[id number] 2.840.1.289533.3.57[id number] 2.840.1.800822.3.57[id number] 2.0.1.822711.3.57[id number] 2.840.1.808796.3.57[id number] 2.840.1.553568.3.57[id number] 2.840.1.968140.3.57[id number] 2.840.1.017603.3.57[id number] 2.840.1.670249.3.57[id number] 2.840.1.939239.3.57[id number] 2.16.840.1.613637.3.57[id number] 2.16.840.1.512015.3.57[id number] 2.16.840.1.731158.3.57[id number] 2.16.840.1.361324.3.57[id number] 2.16.840.1.057976.3.57[id number] 2.16.840.1.020273.3.579.2.1259 [id number] 1962Unknown [id number] 1.2.840.953260.1.13.239.2.7.3.768431.68914-59-2600CudxpxvDayhcul [id number] 2.16.840.1.070286.3.579.2.593 Social History DateTypeDetailFacilityTobacco smoking status NHISUnknown if ever smokedMarietta [facility]: 96-79-5150Owe Assigned At BirthNot on [facility]: 05-23-2023 End: 83-05-3231Fka Assigned At BirthNOAL HealthcareStart: 09-22-2021 End: 70-42-4791Bwdtdub smoking status NHISNever smoked tobaccoNOMS Healthcare Start: 27-84-1591Okigyvm use and exposureSmokeless tobacco non-userNOMS HealthcareStart: 06-24-2023 End: 83-37-2565Zxmzkzk intakeCurrent drinker of alcohol (finding)[facility] Start: 05-23-2023 End: 95-65-4280Fuhfcbf of Social functionNOMS HealthcareStart: 83-39-2460Tuzoyuz CommentrarelyNOMS HealthcareStart: 43-36-2303Eu a typical week, how many times do you talk on the telephone with family, friends, or neighbors?Patient declined NOMS HealthcareDo you belong to any clubs or organizations such as jehovah's witness groups, unions, fraternal or athletic groups, or school groups?NoNOMS Healthcare Are you now , , , , never or living with a partner?Never marriedNOMS HealthcareHow often to you have a drink containing alcohol?Monthly or lessNOMS HealthcareHow many standard drinks containing alcohol do you have on a typical day?1 or 2NOMS HealthcareHow often do you have 6 or more drinks on 1 occasion?NeverNOMS HealthcareDo you feel stress - tense, restless, nervous, or anxious, or unable to sleep at night because yourmind is troubled all the time - these days [OSQ]To some extentNOMS Healthcare(I/We) worried whether (my/our) food would run out before (I/we) got money to buy more. Never trueNOMS HealthcareSexFemale (finding)[facility] Start: 52-38-0873Fcw Assigned At [facility] Clinical Notes 09-22-2021 to 12-16-2024 Note Date & IjxwFaybKfcuqkgv68-54-7985 History of Present illness Narrative* Carmela Renee NP - 12/16/2024 9:39 AM EDTAssociated Problem(s): Intrinsic eczema Reviewed skin care, cont antihistamine, trial 5 days steroid Fu if not better documented in this encounterMetropolitan Saint Louis Psychiatric CenterPiikxuknti47-75-8510 History of Present illness Narrative* COREY PAGAN - 09/01/2024 2:40 PM EDT Ortho-medrol dospak for right wrist-gangling cysts- finished dose, did not shrink it she is going to talk to ortho tomorrow about that. Pt has pea size cyst in right axillary area, no pain, no redness or head on it. * Carmela Renee, RENATA - 09/01/2024 2:40 PM EDT Images from the original note were not [...] Anxiety Bipolar depression (CMS/HCC) 08/16/2023 Depression, major ([facility]/HCC) Environmental allergies RINA (generalized anxiety disorder) ([facility]/HCC) 05/23/2023 History of being hospitalized 2010 PE Hyponatremia Insomnia Intrinsic eczema 05/23/2023 Mental problem MENTAL ILLNESS Obsessive compulsive disorder ([facility]/HCC) 05/23/2023 OCD (obsessive compulsive disorder) ([facility]) Paresthesia of right upper extremity Vaginal yeast infection Past Surgical History: Procedure Laterality Date FEMINIZING AUGMENTATION MAMMOPLASTY Bilateral LUMBAR LAMINECTOMY Left [place] BREAST REDUCTION REDUCTION MAMMOPLASTY TONSILLECTOMY family history [...] Morbid (severe) obesity due to excess calories ([facility]) - Primary Discussed with patient their BMI (actual, verses recommended). We have also discussed lifestyle modifications: attempts to perform physical activity as chronic conditions allow, also to monitor dietary intake: increasing protein/fruits/veggies and lowering carb intake (unless contraindicated). Limit sodas, juices, and sugary drinks. Sebaceous cyst of axilla At last visit started Atb, and had her do warm compress * Carmela Renee NP - 09/01/2024 7:06 AM EDTAssociated Problem(s): Sebaceous cyst of axilla At last visit started Atb, and had her do warm compress * Carmela Renee NP - 09/01/2024 7:05 AM EDTAssociated Problem(s): Morbid (severe) obesity due to excess calories (CMS/HCC) Discussed with patient their BMI (actual, verses recommended). We have also discussed lifestyle modifications: attempts to perform physical activity as chronic conditions allow, also to monitor dietary intake: increasing protein/fruits/veggies and lowering carb intake (unless contraindicated). Limit sodas, juices, and sugary drinks. documented in this encounterMetropolitan Saint Louis Psychiatric CenterOddgriydhc47-50-5124 History of Present illness Narrative* SANTI Carrasco - 08/19/2024 9:00 AM EST Images from the original note were not [...] of her wrist. 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 Right Wrist Pain and Bump - Onset: Not specified. - Location: Right wrist, inside part. - Character: Pain with a small bump. - Alleviating/Aggravating Factors: Uses her right hand a lot at work as a gis technician. 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 - Frequently uses her right hand PAST MEDICAL HISTORY: Past Medical History: Diagnosis Date Abnormality of right breast on screening mammogram Adult hypothyroidism ([facility]) Anxiety Bipolar depression ([facility]) 08/16/2023 Depression, major ([facility]) Environmental allergies RINA (generalized anxiety disorder) ([facility]) 05/23/2023 History of being hospitalized 2010 PE Hyponatremia Insomnia Intrinsic eczema 05/23/2023 Mental problem MENTAL ILLNESS Obsessive compulsive disorder ([facility]) 05/23/2023 OCD (obsessive compulsive disorder) ([facility]) Paresthesia of right upper extremity Vaginal yeast infection PAST SURGICAL HISTORY: Past Surgical History: Procedure Laterality Date FEMINIZING AUGMENTATION MAMMOPLASTY Bilateral LUMBAR LAMINECTOMY Left [place] BREAST REDUCTION REDUCTION MAMMOPLASTY TONSILLECTOMY SOCIAL HISTORY: [...] benefits of the oral steroid were explained. Itis strongly recommended that she seek reevaluation if [...] for requiring urgent evaluation. documented in this encounterMetropolitan Saint Louis Psychiatric CenterOpoajybycb11-78-0566 History of Present illness Narrative* Carmela Renee NP - 08/10/2024 9:15 AM ESTAssociated Problem(s): Sebaceous cyst of axilla Atb, warm compress Fu in 3 weeks for a recheck The lump is not on breast, and is superficial in location and suspected to be a S.C. * Carmela Renee NP - 08/10/2024 9:14 AM ESTAssociated Problem(s): Ganglion cyst of wrist, right No hx of trauma Is painful, would like it to be removed Refer to ortho * COREY PAGAN - 08/10/2024 8:40 AM EST Pt noticed on a lump on her right breast/axillary area Refill on hydroxyzine 90 day supply Now going to [facility] [place] * Carmela Renee CLIPPER OPERATOR - 08/10/2024 8:40 AM EST Images from the original note were not [...] depressed mood, dizziness, dry mouth, excessive worry, irritability,muscle tension, nausea, palpitations, panic, shortness of breath [...] change, chills, fatigue, fever, irritability, weight gain andweight loss. HENT: Negative for congestion, ear pain, [...] right breast on screening mammogram Adult hypothyroidism ([facility]) Anxiety Bipolar depression ([facility]) 08/16/2023 Depression, major ([facility]) Environmental allergies RINA (generalized anxiety disorder) ([facility]) 05/23/2023 History of being hospitalized 2010 PE Hyponatremia Insomnia Intrinsic eczema 05/23/2023 Mental problem MENTAL ILLNESS Obsessive compulsive disorder ([facility]) 05/23/2023 OCD (obsessive compulsive disorder) ([facility]) Paresthesia of right upper extremity Vaginal yeast infection Past Surgical History: Procedure Laterality Date FEMINIZING AUGMENTATION MAMMOPLASTY Bilateral LUMBAR LAMINECTOMY Left [place] BREAST REDUCTION REDUCTION MAMMOPLASTY TONSILLECTOMY family history [...] Medications levothyroxine (Synthroid, Levoxyl) 137 MCG tablet * Carmela Renee NP - 08/10/2024 6:17 AM ESTAssociated Problem(s): Panic attack as reaction to stress (CMS/HCC) Current meds: abilify, fluvoxamine, and vistaril prn * Carmela Renee NP - 08/10/2024 6:17 AM ESTAssociated Problem(s): Obsessive compulsive disorder (CMS/HCC) Current med: flovoxamine and vistaril prn * Carmela Renee NP - 08/10/2024 6:16 AM ESTAssociated Problem(s): RINA (generalized anxiety disorder) (CMS/HCC) Current meds: abilify, fluovoxamine, vistaril RINA 7 score= 5 * Carmela Renee NP - 08/10/2024 6:16 AM ESTAssociated Problem(s): Environmental and seasonal allergies Takes cetirizine * Carmela Renee NP - 08/10/2024 6:15 AM ESTAssociated Problem(s): Bipolar depression (CMS/HCC) Current meds: abilify, fluovoxamine PHQ 9 score=6 * Carmela Renee NP - 08/10/2024 6:14 AM ESTAssociated Problem(s): Morbid (severe) obesity due to excess [...] well as surgical options for weight loss. * Carmela Renee NP - 08/10/2024 6:14 AM ESTAssociated Problem(s): Acquired hypothyroidism (CMS/HCC) Currently taking levothyroxine Check labs yearly and prn dose changes and changes in symptoms documented in this [facility]02-17-2025 Instructions* Patient Instructions* Carmela Renee NP - 08/10/2024 8:40 AM EST Continue current meds Referred to ortho for cyst on wrist Cyst in axillary region: warm compress 3-4 times daily, finish atb follow up in 3 weeks documented in this [facility]10-16-2024 History of Present illness Narrative* Carmela Renee NP - 04/08/2024 10:28 AM EDTAssociated Problem(s): Flea bite of multiple sites Symptoms improving 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 Pt is asking to get a refill on the hydroxyzine she was taking 3 times daily she is completely out of her prescription from you and is asking to take 1 tab daily instead of a half * Carmela Renee NP - 04/08/2024 10:00 AM EDT Images from the original note were not [...] right breast on screening mammogram Adult hypothyroidism ([facility]) Anxiety Bipolar depression ([facility]) 08/16/2023 Depression, major ([facility]) Environmental allergies RINA (generalized anxiety disorder) ([facility]) 05/23/2023 History of being hospitalized 2010 PE Hyponatremia Insomnia Intrinsic eczema 05/23/2023 Mental problem MENTAL ILLNESS Obsessive compulsive disorder ([facility]) 05/23/2023 OCD (obsessive compulsive disorder) ([facility]) Paresthesia of right upper extremity Vaginal yeast infection Past Surgical History: Procedure Laterality Date FEMINIZING AUGMENTATION MAMMOPLASTY Bilateral LUMBAR LAMINECTOMY Left [place] BREAST REDUCTION REDUCTION MAMMOPLASTY TONSILLECTOMY family history [...] Symptoms improving 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, and peoplesoft 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 already and will have it done again next week Generalized pruritus Improving with atarax Fu if needed Other Visit Diagnoses Obsessive-compulsive disorder, unspecified (CMS/HCC) Relevant Medications fluvoxaMINE (Luvox) 100 MG tablet hydrOXYzine pamoate (Vistaril) 25 MG capsule Hypothyroidism, unspecified (CMS/HCC) Relevant Medications levothyroxine (Synthroid, Levoxyl) 137 MCG tablet documented in this encounterJason Ville [id number] Evaluation note* Encounter Date Diagnosis Assessment Notes Treatment Notes Treatment Clinical Notes Sep, Acute otitis externa of left ear, unspecified type (ICD-10 - H60.502) Drink plenty fluids, get plenty of rest. Use the eardrops as prescribed for 7 days. Take Tylenol Motrin for pain or fevers. Follow-up with your family physician if no improvement in 2 to 3 days [place] Other Evaluation note* Diagnosis Acquired hypothyroidism (CMS/HCC)- [...] colon Bipolar affective disorder, remission status unspecified ([facility]) Obsessive-compulsive disorder, unspecified (CMS/HCC) Hypothyroidism, unspecified ([facility]/HCC) Panic attack as reaction to stress ([facility]/HCC)- Primary Encounter for screening mammogram for malignant neoplasm of breast RINA (generalized anxiety disorder) ([facility]/HCC) Generalized anxiety disorder RINA (generalized anxiety disorder) ([facility]/HCC)- Primary Generalized anxiety disorder Morbid (severe) obesity due to excess calories (CMS/HCC) Body mass index (BMI) 40.0-44.9, adult ([facility]) Panic attack as reaction to stress ([facility]) Flea bite of multiple sites- Primary Morbid (severe) obesity due to excess calories (CMS/[facility]) Body mass index (BMI) 40.0-44.9, adult ([facility]/HCC) RINA (generalized anxiety disorder) (CMS/HCC) Generalized anxiety disorder Obsessive-compulsive disorder, unspecified (CMS/HCC) Hypothyroidism, unspecified (CMS/HCC) Bipolar disorder, unspecified (CMS/HCC) Bipolar disorder, unspecified Panic attack as reaction to stress ([facility]/HCC) Environmental and seasonal allergies Generalized pruritus Unspecified pruritic disorder documented in this encounter [facility] HealthcareEvaluation note* Diagnosis Bipolar disorder, unspecified (CMS/HCC) Bipolar disorder, unspecified documented in this encounter [facility] HealthcareEvaluation note* Diagnosis RINA (generalized anxiety disorder) (CMS/HCC) Generalized anxiety disorder Panic attack as reaction to stress ([facility]/HCC) documented in this encounter [facility] HealthcareEvaluation note* Diagnosis Acquired hypothyroidism (CMS/HCC)- Primary Unspecified hypothyroidism Intrinsic eczema RINA (generalized anxiety disorder) (CMS/HCC) Generalized anxiety disorder Obsessive-compulsive disorder, unspecified type (CMS/HCC) Acquired hypothyroidism (CMS/HCC)- Primary Unspecified hypothyroidism RINA (generalized anxiety disorder) ([facility]/HCC) Generalized anxiety disorder Screening for colon cancer Special screening for malignant neoplasms, colon Bipolar affective disorder, remission status unspecified ([facility]/HCC) Obsessive-compulsive disorder, unspecified (CMS/HCC) Hypothyroidism, unspecified ([facility]) Panic attack as reaction to stress ([facility])- Primary Encounter for screening mammogram for malignant neoplasm of breast RINA (generalized anxiety disorder) ([facility]/HCC) Generalized anxiety disorder RINA (generalized anxiety disorder) ([facility]/HCC)- Primary Generalized anxiety disorder Morbid (severe) obesity due to excess calories ([facility]) Body mass index (BMI) 40.0-44.9, adult ([facility]) Panic attack as reaction to stress ([facility]) Flea bite of multiple sites- Primary Morbid (severe) obesity due to excess calories ([facility]) Body mass index (BMI) 40.0-44.9, adult ([facility]/HCC) RINA (generalized anxiety disorder) ([facility]/HCC) Generalized anxiety disorder Obsessive-compulsive disorder, unspecified (CMS/HCC) Hypothyroidism, unspecified ([facility]/HCC) Bipolar disorder, unspecified ([facility] [facility] Bipolar disorder, unspecified Panic attack as reaction to stress ([facility]) Environmental and seasonal allergies Generalized pruritus Unspecified pruritic disorder RINA (generalized anxiety disorder) ([facility]/HCC) Generalized anxiety disorder Obsessive-compulsive disorder, unspecified ([facility]/HCC) Panic attack as reaction to stress ([facility]/HCC) documented in this encounter [facility]* Diagnosis Acquired hypothyroidism (CMS/HCC)- Primary Unspecified hypothyroidism Intrinsic eczema RINA (generalized anxiety disorder) ([facility]/HCC) Generalized anxiety disorder Obsessive-compulsive disorder, unspecified type (CMS/HCC) Acquired hypothyroidism (CMS/HCC)- Primary Unspecified hypothyroidism RINA (generalized anxiety disorder) ([facility]/HCC) Generalized anxiety disorder Screening for colon cancer Special screening for malignant neoplasms, colon Bipolar affective disorder, remission status unspecified ([facility]/HCC) Obsessive-compulsive disorder, unspecified (CMS/HCC) Hypothyroidism, unspecified (CMS/HCC) Panic attack as reaction to stress (CMS/HCC)- Primary Encounter for screening mammogram for malignant neoplasm of breast RINA (generalized anxiety disorder) (CMS/HCC) Generalized anxiety disorder RINA (generalized anxiety disorder) (CMS/HCC)- Primary Generalized anxiety disorder Morbid (severe) obesity due to excess calories (CMS/HCC) Body mass index (BMI) 40.0-44.9, adult ([facility]) Panic attack as reaction to stress (CMS/HCC) Flea bite of multiple sites- Primary Morbid (severe) obesity due to excess calories (CMS/HCC) Body mass index (BMI) 40.0-44.9, adult ([facility]/HCC) RINA (generalized anxiety disorder) (CMS/HCC) Generalized anxiety disorder Obsessive-compulsive disorder, unspecified (CMS/HCC) Hypothyroidism, unspecified (CMS/HCC) Bipolar disorder, unspecified (CMS/HCC) Bipolar disorder, unspecified Panic attack as reaction to stress ([facility]) Environmental and seasonal allergies Generalized pruritus Unspecified pruritic disorder Sebaceous cyst of axilla- Primary Morbid (severe) obesity due to excess calories (CMS/HCC) Body mass index (BMI) 40.0-44.9, adult ([facility]/HCC) Acquired hypothyroidism (CMS/HCC) Unspecified hypothyroidism Bipolar depression ([facility]/HCC) Bipolar I disorder, most recent episode (or current) depressed, unspecified Environmental and seasonal allergies RINA (generalized anxiety disorder) ([facility]/HCC) Generalized anxiety disorder Mixed obsessional thoughts and acts ([facility]/HCC) Panic attack as reaction to stress ([facility]/HCC) Bipolar disorder, unspecified (CMS/HCC) Bipolar disorder, unspecified [...] (CMS/HCC) Body mass index (BMI) 40.0-44.9, adult ([facility]) Panic attack as reaction to stress (CMS/HCC) Flea bite of multiple sites- Primary Morbid (severe) obesity due to excess calories (CMS/HCC) Body mass index (BMI) 40.0-44.9, adult ([facility]/HCC) RINA (generalized anxiety disorder) (CMS/HCC) Generalized anxiety disorder Obsessive-compulsive disorder, unspecified (CMS/HCC) Hypothyroidism, unspecified (CMS/HCC) Bipolar disorder, unspecified (CMS/HCC) Bipolar disorder, unspecified Panic attack as reaction to stress (CMS/HCC) Environmental and seasonal allergies Generalized pruritus Unspecified pruritic disorder Sebaceous cyst of axilla- Primary Morbid (severe) obesity due to excess calories (CMS/HCC) Body mass index (BMI) 40.0-44.9, adult ([facility]/HCC) Acquired hypothyroidism (CMS/HCC) Unspecified hypothyroidism Bipolar depression ([facility]) Bipolar I disorder, most recent episode (or current) depressed, unspecified Environmental and seasonal allergies RINA (generalized anxiety disorder) (CMS/HCC) Generalized anxiety disorder Mixed obsessional thoughts and acts (CMS/HCC) Panic attack as reaction to stress ([facility]/HCC) Bipolar disorder, unspecified (CMS/HCC) Bipolar disorder, unspecified [...] (CMS/HCC) Obsessive-compulsive disorder, unspecified (CMS/HCC) Hypothyroidism, unspecified ([facility]) Panic attack as reaction to stress ([facility])- Primary Encounter for screening mammogram for malignant neoplasm of breast RINA (generalized anxiety disorder) ([facility]) Generalized anxiety disorder RINA (generalized anxiety disorder) ([facility]/HCC)- Primary Generalized anxiety disorder Morbid (severe) obesity due to excess calories ([facility]) Body mass index (BMI) 40.0-44.9, adult ([facility]) Panic attack as reaction to stress ([facility]) Flea bite of multiple sites- Primary Morbid (severe) obesity due to excess calories ([facility]) Body mass index (BMI) 40.0-44.9, adult ([facility]) RINA (generalized anxiety disorder) ([facility]) Generalized anxiety disorder Obsessive-compulsive disorder, unspecified ([facility]) Hypothyroidism, unspecified ([facility]) Bipolar disorder, unspecified ([facility]) Bipolar disorder, unspecified Panic attack as reaction to stress ([facility]) Environmental and seasonal allergies Generalized pruritus Unspecified pruritic disorder Sebaceous cyst of axilla- Primary Morbid (severe) obesity due to excess calories ([facility]) Body mass index (BMI) 40.0-44.9, adult ([facility]) Acquired hypothyroidism ([facility]) Unspecified hypothyroidism Bipolar depression ([facility]) Bipolar I disorder, most recent episode (or current) depressed, unspecified Environmental and seasonal allergies RINA (generalized anxiety disorder) ([facility]) Generalized anxiety disorder Mixed obsessional thoughts and acts ([facility]) Panic attack as reaction to stress ([facility]) Bipolar disorder, unspecified ([facility]) Bipolar disorder, unspecified Obsessive-compulsive disorder, unspecified ([facility]/HCC) Hypothyroidism, unspecified ([facility]/HCC) Ganglion cyst of wrist, right Sebaceous cyst of axilla- Primary Morbid (severe) obesity due to excess calories ([facility]) Acute pain of right wrist- Primary Ganglion [...] colon Bipolar affective disorder, remission status unspecified ([facility]) Obsessive-compulsive disorder, unspecified Hypothyroidism, unspecified Panic attack as reaction to stress- Primary Encounter for screening mammogram for malignant neoplasm of breast RINA (generalized anxiety disorder) Generalized anxiety disorder RINA (generalized anxiety disorder)- Primary Generalized anxiety disorder Morbid (severe) obesity due to excess calories ([facility]) Body mass index (BMI) 40.0-44.9, adult ([facility]) Panic attack as reaction to stress Flea bite of multiple sites- Primary Morbid (severe) obesity due to excess calories ([facility]) Body mass index (BMI) 40.0-44.9, adult ([facility]) RINA (generalized anxiety disorder) Generalized anxiety disorder Obsessive-compulsive disorder, unspecified Hypothyroidism, unspecified Bipolar disorder, unspecified (HCC) Bipolar disorder, unspecified Panic attack as reaction to stress Environmental and seasonal allergies Generalized pruritus Unspecified pruritic disorder Sebaceous cyst of axilla- Primary Morbid (severe) obesity due to excess calories ([facility]) Body mass index (BMI) 40.0-44.9, adult ([facility]) Acquired hypothyroidism Unspecified hypothyroidism Bipolar depression ([facility]) Bipolar I disorder, most recent episode (or current) depressed, unspecified Environmental and seasonal allergies RINA (generalized anxiety disorder) Generalized anxiety disorder Mixed obsessional thoughts and acts Panic attack as reaction to stress Bipolar disorder, unspecified (HCC) Bipolar disorder, unspecified Obsessive-compulsive disorder, unspecified Hypothyroidism, unspecified Ganglion cyst of wrist, right Sebaceous cyst of axilla- Primary Morbid (severe) obesity due to excess calories ([facility]) Acute non-recurrent maxillary sinusitis- Primary Morbid (severe) obesity due to excess calories ([facility]) Hypothyroidism, unspecified- Primary Sebaceous cyst of axilla Rash Rash and other nonspecific skin eruption documented in this encounter [facility]* Diagnosis Onset Date Resolution Status Admit Date Acquired hypothyroidism acuteSept2024 1:10pmBipolar depressionacuteSept2024 1:10pmEnvironmental and seasonal allergiesacuteSept2024 1:10pmGAD (generalized anxiety disorder)acuteSept2024 1:10pmMorbid (severe) obesity due to excess caloriesacuteSept2024 1:10pmRashacuteSeptember 2024 1:10pm [facility] Work Phone: History general Narrative - Reported* Type Description Date Medical History Insomnia Medical HistoryHypothyroidismMedical HistoryAnxietyMedical HistoryDepression Surgical Historytonsillectomy and adenoidectomySurgical Historybreast reduction Surgical Historylumbar laminectomyHospitalization Historypulmonary embolism [place] Other Reason for referral (narrative)No reason for referral information availableOhiohealth Riverside [facility] Work Phone: Summary Purpose Family History [...] 2025 1:10pm Environmental and seasonal allergies Sep tem2024 1:10pm RINA (generalized anxiety disorder) Septe mber 2024 1:10pm Morbid (severe) obesity due to excess ca lories March 03, 2025 1:10pm Rash March 03, 2025 1:10pm Additional Source Comments INFORMATION SOURCE (unrecogn ized section and content) DATE CREATED AUTHOR 11/24/2019 [facility] DATE CREATED AUTHOR AUTHOR'S ORGANIZ ATION 08/14/2020 [facility] DATE CREATED AUTHOR AUTHOR'S ORGANIZ ATION 09/04/2022 [facility] DATE CREATED AUTHOR AUTHOR'S ORGANIZ ATION 09/16/2024 [facility] EPIC REASON FOR VISIT (unrecogniz ed section and content) ReasonCommentsMed RefillReasonCommentsPainSpecialtyDiagnoses / Procedures Referred By ContactReferred To ContactOrthopaedic Surgery Diagnoses Ganglion cyst of wrist, right Carmela Renee NP [address] [place] [address] Phone: tel: fax: Silvana Parr NP fax: Referral IDStatusReasonStart DateExpiration DateVisits RequestedVisits [id number] Specialty Services Required [id number] DateCommentsMed Qxzkdr6512/16/2024 Care Teams (unrecognized sec tion and content) Team MemberRelationshipSpecialtyStart DateEnd Date Chadwick Sauceda MD PCP - GeneralFamily Medicine01/09/23 Carmela Renee NP [address] [place] [phone] Referring PhysicianNurse Practitioner01/09/23Team MemberRelationshipSpecialty Start DateEnd Date Chadwick Sauceda MD [address] [place] [phone] [facility] - [facility]10/07/23 Carmela Renee NP [address] [place] [phone] Referring PhysicianNurse Practitioner01/09/23 Carmela Renee NP [address] [place] [address] Nurse Practitionermily Medicine10/07/23Team MemberRelationshipSpecialtyStart DateEnd Date Chadwick Sauceda MD [address] [place] [address] PCP - GeneralFamily Medicine10/07/23 Carmela Renee NP [address] [place] [phone] Referring PhysicianNurse Practitioner01/09/23 Carmela Renee NP [address] [place] [address] Nurse PractitionerFailly Medicine10/07/23Team MemberRelationshipSpecialtyStart DateEnd Date Chadwick Sauceda MD [address] [place] [address] [facility]Fl[facility]ly [facility]10/07/23 Carmela Renee NP [address] [place] [address] Referring PhysicianNurse Practitioner01/09/23 Carmela Renee NP [address] [place] [address] Nurse PractitionerEn[facility] Medicine10/07/23Team MemberRelationshipSpecialtyStart DateEnd Date Chadwick Sauceda MD [address] [place] [address] PCP - [facility]Fl[facility] Centerly Medicine10/07/23 Carmela Renee NP [address] [place] [address] Referring PhysicianNurse Practitioner01/09/23 Carmela Renee NP [address] [place] [address] Nurse PractitionerFamily Medicine10/07/23Team MemberRelationshipSpecialtyStart DateEnd Date Chadwick Sauceda MD [address] [place] [address] PCP - [facility]En[facility] Ljzkkkpl65/31/24 Carmela Renee NP [address] [place] [address] Referring PhysicianNurse Practitioner01/09/23 Carmela Renee NP [address] [place] [address] Primary Care ProviderEn[facility] Medicine10/07/23Team MemberRelationshipSpecialtyStart DateEnd Date Chadwick Sauceda MD [address] [place] [address] PCP - [facility]En[facility] Bblbznwq97/31/24 Carmela Renee NP [address] [place] [address] Referring PhysicianNurse Practitioner01/09/23 Carmela Renee NP [address] [place] [address] Primary Care ProviderEn[facility] Medicine10/07/23Team MemberRelationshipSpecialtyStart DateEnd Date Chadwick Sauceda MD [address] [place] [address] PCP - GeneralEn[facility] Dszwhzse23/31/24 Carmela Renee NP [address] [place] [address] Referring PhysicianNurse Practitioner01/09/23 Carmela Renee NP [address] [place] [address] Primary Care ProviderEn[facility] Medicine10/07/23Team MemberRelationshipSpecialtyStart DateEnd Date Chadwick Sauceda MD [address] [place] [address] PCP - [facility]04/23/24 Carmela Renee NP [address] [place] [address] Referring PhysicianNurse Practitioner01/09/23 Carmela Renee NP [address] [place] [address] Primary Care ProviderEn[facility] Medicine10/07/23Team MemberRelationshipSpecialtyStart DateEnd Date Chadwick Sauceda MD [address] [place] [address] PCP - [facility]En[facility] Pafygnvx35/31/24 Carmela Renee NP [address] [place] [address] Referring PhysicianNurse Practitioner01/09/23 Carmela Renee NP [address] [place] [address] [facility] ProviderEff[facility]10/07/23Team MemberRelationshipSpecialtyStart DateEnd Chadwick Sauceda MD [address] [place] [address] PCP - [facility]04/23/24 Carmela Renee NP [address] [place] [address] Referring PhysicianNurse Practitioner01/09/23 Carmela Renee NP [address] [place] [address] Primary [facility] ProviderEffingham Hospital10/07/23Team MemberRelationshipSpecialtyStart DateEnd Date Chadwick Sauceda MD [address] [place] [address] PCP - [facility]04/23/24 Carmela Renee NP [address] [place] [address] [facility] Carmela Renee NP [address] [place] [address] Referring PhysicianNurse Practitioner01/09/23 Carmela Renee NP [address] [place] [address] Primary Care ProviderEffingham Hospital10/07/23 Team Status: Active Member Role Status Dates Carmela Irby Yeyoezradha Primary Care Provider Active Team Status: Inactive Member Role Status Dates Carmela Irby Yeyoezkerenfabrice Primary Care Provider Active Sta rt: March 03, 2025 End: March 03, 2025Carmela Hanttending ProviderActiveStart: March 03, 2025 End: March 03, 2025Team MemberRelationshipSpecialtyStart DateEnd Date Unallocated, Noms MD [address] [place] [address] PCP - [facility]04/08/2410/30/24 Chadwick Sauceda MD [address] [place] [address] PCP - [facility]04/23/24 Carmela Renee NP [address] [place] [address] PCP - [facility]09/22/24 Carmela Renee NP Referring PhysicianNurse Practitioner01/09/23 Carmela Renee NP Primary Care ProviderEffingham Hospital10/07/23 Goals (unrecognized section and content) Goals may [...] BE BASED ON THE PRIMARY CLINICAL RECORDS. [facility] provides no warranty or guarantee of the accuracy or completeness of information in this document.
[2025-06-01 12:03] LABS: Thyroid Stimulating Hormone 0.196 uIU/mL (0.358-3.740)
== END 2025-06-01 11:02 | disposition home or self-care (01) ==
LOC: LAB 11:03
PROVIDERS: PCP Nurse Practitioner; Visit Provider Nurse Practitioner
DX: E03.9 Hypothyroidism, unspecified (principal)
CPT/HCPCS: 36415; 84439; 84443